=== PATIENT | female | born 1940 | race Caucasian/White ===

== ENCOUNTER 2018-07-05 09:12 | Emergency (ER) | payer MEDICARE, MEDICAID ==
[2018-07-05] MEDS ORDERED: Aspirin 81 MG Tab.Chew PO STA ×2 (12:47→12:51)
[2018-07-05] MEDS ORDERED: Metoprolol Tartrate 5 MG/5 ML SDV IVPUSH STA (12:52)
--- NOTE | 2018-07-05 13:01 | EDM.PDOC ---
ED HPI GENERAL MEDICAL PROBLEM - General Chief Complaint: Cardiovascular Problem Stated Complaint: IRREGULAR HEART RATE Time Seen by Provider: 07/05/18 10:33 Source of Information: Reports: Patient, Family (Daughter, jett-daughter), RN Notes Reviewed History Limitations: Reports: No Limitations - History of Present Illness INITIAL COMMENTS - FREE TEXT/NARRATIVE: The patient states that she has been feeling palpitations - the sensation of skipping" fluttering" in her chest, for 50 years. She states that she wore a Holter monitor twice, both around 20 years ago, and that both times they were negative. She states that her Sub Prior told her that he thought her palpitations were due to "nerves". Her symptoms have been worse this week, including this morning. In the past, the patient took Ativan, which she states helped, but then she stopped taking the Ativan. She took 2 tablets of Ativan 0.5 mg, and states that she felt better this morning, as well. She states that she was prescribed Ativan for the treatment of anxiety. The patient denies a recent history of chest pain or discomfort, dyspnea, nausea, diaphoresis, or sense of impending doom. The patient is on Coumadin for a history of DVT/PE. She states that she is able to check her own INR at home, and that it was therapeutic at 2.5 yesterday, 07/04/2018. In addition to Coumadin, the patient also has an inferior vena cava filter. The patient also states that she was diagnosed with obstructive sleep apnea about 20 years ago, but does not wear her CPAP, due to claustrophobia. Here in the ED, the patient's initial blood pressure was recorded as 158/143, however, a short time later, without treatment, it was recorded as 129/58. She is no longer feeling palpitations. The patient's PCP is Sandi Stevenson. - Related Data Allergies Allergy/AdvReac Type Severity Reaction Status Date / Time No Known Allergies Allergy Verified 07/05/18 09:24 Home Meds: Home Meds Warfarin [Coumadin] 2.5 mg PO SUTUWETHSA 11/11/15 [History] Warfarin [Coumadin] 5 mg PO MOFR 11/11/15 [History] Acetaminophen [Tylenol] 650 mg PO BEDTIME 01/02/16 [History] Aspirin [Ivan Chewable] 81 mg PO DAILY 01/02/16 [History] Atenolol [Tenormin] 50 mg PO DAILY 01/02/16 [History] Diltiazem HCl [Diltiazem 24Hr ER] 240 mg PO DAILY 01/02/16 [History] LORazepam 0.5 mg PO DAILY PRN 01/02/16 [History] Levothyroxine [Synthroid] 1.5 tab PO DAILY 01/02/16 [History] Losartan/Hydrochlorothiazide [Losartan-HCTZ 100-25 MG] 1 each PO DAILY 01/02/16 [History] Magnesium 400 mg PO DAILY 01/02/16 [History] Niacin [Niacin ER] 500 mg PO BEDTIME 01/02/16 [History] [place]-3/DHA/Epa/Fish Oil [Fish Oil] 1,000 mg PO BID 01/02/16 [History] Pravastatin Sodium [Pravastatin (Pravachol)] 40 mg PO DAILY 01/02/16 [History] Ubidecarenone [COQ-10] 30 mg PO DAILY 01/02/16 [History] Vitamin B Complex 1 each PO DAILY 01/02/16 [History] B2/Vit A,C & E/Lut/Zeaxanth/Mn [Icaps] 1 tab PO BID 07/05/18 [History] Cholecalciferol (Vitamin D3) [Vitamin D3] 1 tab PO DAILY 07/05/18 [History] Past Medical History HEENT History: Reports: Impaired Vision Cardiovascular History: Reports: Blood Clots/VTE/DVT, High Cholesterol, Hypertension Respiratory History: Reports: PE, Sleep Apnea (non-compliant with CPAP) Musculoskeletal History: Reports: Back Pain, Chronic, Osteoarthritis Psychiatric History: Reports: Anxiety Endocrine/Metabolic History: Reports: Hypothyroidism, Obesity/BMI 30+ Hematologic History: Reports: B12 Deficiency - Past Surgical History HEENT Surgical History: Reports: Cataract Surgery Cardiovascular Surgical History: Reports: Vascular Surgery (IVC filter) Other Cardiovascular Surgeries/Procedures: blood clot filter GI Surgical History: Reports: Cholecystectomy (1970s) Social & Family History - Family History Family Medical History: Noncontributory - Tobacco Use Smoking Status *Q: Former Smoker Years of Tobacco use: 5 Packs/Tins Daily: 0.2 Month/Year Tobacco Last Used: Quit 1963 - Caffeine Use Caffeine Use: Reports: None - Alcohol Use Alcohol Use History: No - Recreational Drug Use Recreational Drug Use: No - Living Situation & Occupation Living situation: Reports: , Alone Occupation: Retired ED ROS GENERAL - Review of Systems Review Of Systems: ROS reveals no pertinent complaints other than HPI. ED EXAM, GENERAL - Physical Exam Exam: See Below Exam Limited By: No Limitations General Appearance: Alert, WD/WN, No Apparent Distress Eye Exam: Bilateral Eye: EOMI, Normal Inspection Ears: Normal External Exam Nose: Normal Inspection Throat/Mouth: Normal Inspection, Normal Lips, Normal Voice, No Airway Compromise Head: Atraumatic, Normocephalic Neck: Normal Inspection, Full Range of Motion Respiratory/Chest: No Respiratory Distress, Lungs Clear, Normal Breath Sounds, No Accessory Muscle Use Cardiovascular: Normal Peripheral Pulses, Regular Rate, Rhythm, No Gallop, No JVD, No Murmur, No Rub Peripheral Pulses: 4+: Radial (L), Radial (R) GI/Abdominal: Normal Bowel Sounds, Soft, Non-Tender, No Organomegaly, No Distention, No Abnormal Bruit, Other (Obese) (Female) Exam: Deferred Rectal (Female) Exam: Deferred Back Exam: Normal Inspection, Full Range of Motion Extremities: Normal Inspection, Normal Range of Motion, Normal Capillary Refill Neurological: Alert, Oriented, Normal Cognition, No Motor/Sensory Deficits Psychiatric: Normal Affect Skin Exam: Warm, Dry, Intact, Normal Color, No Rash EKG INTERPRETATION EKG Date: 07/05/18 Time: 09:26 Rhythm: NSR Rate (Beats/Min): 67 [place]: Normal P-Wave: Present (1 AVB) QRS: Wide (Nonspecific intraventricular conduction delay) ST-T: Normal QT: Normal Comparison: NA - No Prior EKG Course - Vital Signs Last Recorded V/S: Last Vital Signs Temp 36.2 C 07/05/18 09:20 Pulse 66 07/05/18 13:10 Resp 18 07/05/18 09:20 BP 159/67 H 07/05/18 13:10 Pulse Ox 97 07/05/18 09:20 - Orders/Labs/Meds Orders: Active Orders 24 hr Category Date Time Status EKG Documentation Completion [RC] ASDIRECTED Care 07/05/18 14:40 Active EKG Documentation Completion [RC] STAT Care 07/05/18 09:20 Active Labs: Laboratory Tests 07/05/18 07/05/18 07/05/18 Range/Units 11:40 11:40 11:40 WBC 5.42 (3.98-10.04) K/mm3 RBC 4.13 (3.98-5.22) M/mm3 Hgb 12.4 (11.2-15.7) gm/L Hct 39.8 (34.1-44.9) % MCV 96.4 H (79.4-94.8) fl MCH 30.0 (25.6-32.2) pg MCHC 31.2 L (32.2-35.5) g/dl RDW Std Deviation 47.5 H (36.4-46.3) fL Plt Count 181 L (182-369) K/mm3 MPV 9.3 L (9.4-12.3) fl Neutrophils % (Manual) 64 H (40-60) % Band Neutrophils % 0 (0-10) % Lymphocytes % (Manual) 26 (20-40) % Atypical Lymphs % 0 % Monocytes % (Manual) 8 (2-10) % Eosinophils % (Manual) 1 (0.7-5.8) % Basophils % (Manual) 1 (0.1-1.2) Platelet Estimate Adequate Plt Morphology Comment Normal RBC Morph Comment Normal PT 22.3 H (9.5-12.1) SECONDS INR 2.08 Sodium 140 (136-145) mEq/L Potassium 5.1 (3.5-5.1) mEq/L Chloride 102 (98-107) mEq/L Carbon Dioxide 30 (21-32) mEq/L Anion Gap 13.1 (5-15) BUN 34 H (7-18) mg/dL Creatinine 1.4 H (0.55-1.02) mg/dL Est Cr Clr Drug Dosing 34.66 mL/min Estimated GFR (MDRD) 36 (>60) mL/min BUN/Creatinine Ratio 24.3 H (14-18) Glucose 104 (83-115) mg/dL Calcium 10.3 H (8.5-10.1) mg/dL Magnesium 2.4 (1.8-2.4) mg/dl Total Bilirubin 0.4 (0.2-1.0) mg/dL AST 17 (15-37) U/L ALT 26 (14-59) U/L Alkaline Phosphatase 89 (46-116) U/L Troponin I 0.210 H* (0.00-0.056) ng/mL Total Protein 8.0 (6.4-8.2) g/dl Albumin 4.1 (3.4-5.0) g/dl Globulin 3.9 gm/dL Albumin/Globulin Ratio 1.1 (1-2) 07/05/18 Range/Units 14:40 WBC (3.98-10.04) K/mm3 RBC (3.98-5.22) M/mm3 Hgb (11.2-15.7) gm/L Hct (34.1-44.9) % MCV (79.4-94.8) fl MCH (25.6-32.2) pg MCHC (32.2-35.5) g/dl RDW Std Deviation (36.4-46.3) fL Plt Count (182-369) K/mm3 MPV (9.4-12.3) fl Neutrophils % (Manual) (40-60) % Band Neutrophils % (0-10) % Lymphocytes % (Manual) (20-40) % Atypical Lymphs % % Monocytes % (Manual) (2-10) % Eosinophils % (Manual) (0.7-5.8) % Basophils % (Manual) (0.1-1.2) Platelet Estimate Plt Morphology Comment RBC Morph Comment PT (9.5-12.1) SECONDS INR Sodium (136-145) mEq/L Potassium (3.5-5.1) mEq/L Chloride (98-107) mEq/L Carbon Dioxide (21-32) mEq/L Anion Gap (5-15) BUN (7-18) mg/dL Creatinine (0.55-1.02) mg/dL Est Cr Clr Drug Dosing mL/min Estimated GFR (MDRD) (>60) mL/min BUN/Creatinine Ratio (14-18) Glucose (83-115) mg/dL Calcium (8.5-10.1) mg/dL Magnesium (1.8-2.4) mg/dl Total Bilirubin (0.2-1.0) mg/dL AST (15-37) U/L ALT (14-59) U/L Alkaline Phosphatase (46-116) U/L Troponin I 0.542 H* (0.00-0.056) ng/mL Total Protein (6.4-8.2) g/dl Albumin (3.4-5.0) g/dl Globulin gm/dL Albumin/Globulin Ratio (1-2) Meds: Medications Discontinued Medications Generic Name Dose Route Start Last Admin Trade Name Flakito PRN Reason Stop Dose Admin Aspirin 243 mg 07/05/18 12:51 07/05/18 12:54 Aspirin PO 07/05/18 12:52 243 mg ONETIME STA Administration Metoprolol Tartrate 5 mg 07/05/18 12:52 07/05/18 13:10 Lopressor IVPUSH 07/05/18 12:53 5 mg ONETIME STA Administration Simvastatin 80 mg 07/05/18 13:03 07/05/18 13:21 Zocor PO 07/05/18 13:04 80 mg ONETIME STA Administration - Re-Assessments/Exams Free Text/Narrative Re-Assessment/Exam: 07/05/18 13:01 The patient's troponin returned elevated at 0.210. We do not have prior troponins to compare. Her creatinine is elevated at 1.4. This is chronic; her creatinine was 1.5 on 03/21/2018. The patient states that she took her baby aspirin this morning, and her Pravachol last night. I have ordered 243 mg chewable aspirin, 80 mg simvastatin , and 5 mg of IV Lopressor. Case discussed with [facility] at 12:53. Case then discussed with Dr. Hinson, Sub Prior at [facility], at 12: 56. He recommended that we repeat the troponin in a few hours. If it is rising, we are to call him back. If it is not, he recommended a Holter monitor, an outpatient stress test, and follow-up in his clinic. Because the patient is on Coumadin, he advised against heparin or Plavix at this time. 07/05/18 14:56 Repeat ECG at 14:46 demonstrates a sinus arrhythmia. There is a first-degree AV block. No atrial enlargement. No ischemic changes, however, there is late transition. No left axis or right axis deviation. No LVH. There is a nonspecific intraventricular conduction delay. The QTc is within normal limits. No significant change from the 09:26 ECG. The repeat troponin is not yet back. 07/05/18 15:27 The patient's repeat troponin has returned elevated at 0.542. The patient states that she has remained comfortable, without the development of any chest pain or discomfort, dyspnea, nausea, or diaphoresis. Case discussed with [facility] at 15:20. Case then discussed with Dr. Hinson, Sub Prior, at 15:24. He agrees that the patient should be transferred to their facility. He did not feel that the patient needed to go to the [facility] immediately, rather, he would likely risk stratify her with a stress test first. He did not recommend any additional medications. He would like the patient to be admitted to the Hospitalist. [facility] will call us back when the Hospitalist is available. 07/05/18 15:46 Called back by [facility] at 15:36. Case then discussed with Dr. Chase, Hospitalist at [facility], at 15: 42. He accepted the patient for transfer to their facility. The patient will go by ground ambulance. Departure - Departure Time of Disposition: 15:30 Disposition: Admitted As Inpatient 64 Condition: Fair Clinical Impression: Elevated troponin, Chronic renal insufficiency, Palpitations Referrals: Sandi Stevenson LEATHER WHITENER [Primary Care Provider] - Forms: ED Department Discharge - My Orders Last 24 Hours: My Active Orders 07/05/18 09:20 EKG Documentation Completion [RC] STAT 07/05/18 14:40 EKG Documentation Completion [RC] ASDIRECTED - Assessment/Plan Last 24 Hours: My Active Orders 07/05/18 09:20 EKG Documentation Completion [RC] STAT 07/05/18 14:40 EKG Documentation Completion [RC] ASDIRECTED
[2018-07-05] MEDS ORDERED: Simvastatin 40 MG Tab PO STA (13:03)
[2018-07-05 13:16] VITALS: BP 159/67
== END 2018-07-05 16:30 | disposition critical access hospital (66) ==
LOC: JD.ED 09:12
DX: I12.9 Hypertensive chronic kidney disease with stage 1 through stage 4 chronic kidney disease, or unspecified chronic kidney disease (principal); R00.2 Palpitations; E78.00 Pure hypercholesterolemia, unspecified; Z87.891 Personal history of nicotine dependence; Z79.01 Long term (current) use of anticoagulants; Z79.899 Other long term (current) drug therapy
CPT/HCPCS: 36415; 80053; 83735; 84484; 85007; 85027; 85610; 93005; 96374; 99285; A9270; J3490

== ENCOUNTER 2018-09-01 14:27 | Emergency (ER) | payer MEDICARE, MEDICAID ==
[2018-09-01 14:36] VITALS: BP 157/66
[2018-09-01] MEDS ORDERED: HYDROmorphone 1 MG/ML Syringe IM ONE (14:45)
[2018-09-01] MEDS ORDERED: Promethazine 25 MG/ML SDV IM ONE (14:46)
--- NOTE | 2018-09-01 14:48 | EDM.PDOC ---
ED HPI GENERAL MEDICAL PROBLEM - General Chief Complaint: Back Pain or Injury Stated Complaint: [facility] Time Seen by Provider: 09/01/18 14:47 Source of Information: Reports: Patient History Limitations: Reports: No Limitations - History of Present Illness INITIAL COMMENTS - FREE TEXT/NARRATIVE: 78-year-old female arrives in the ED per [facility]. Chief complaint is severe low back pain radiating into her right buttock hip area and down her thigh to the knee. Is been present for greater than a month. She fell on her but talks about a month ago and had the paramedics come and pick her up from the floor but she relates the pain was already there prior to that fall. She states the pain is just not getting any better. Is been using Ultram which is not helping at all. Is incomplete emptying of the urinary bladder. Bowel function has been pretty normal although tends to be constipated. Available walker. She is age 78 but looks much younger than her age. She is morbidly obese at greater than 350 pounds. Onset: Gradual (Greater than a month.) Duration: Week(s): (There are than 4-5 weeks.), Chronic Location: Reports: Back (Lumbar spine with radiation to the right buttock and posterior lateral thigh to the knee) Quality: Reports: Ache, Burning (Pain appears to be neurogenic in origin), Throbbing Severity: Severe (8 out of 10) Improves with: Reports: None Worsens with: Reports: Other (Standing for any length of time makes it worse.) Context: Reports: Other (Spontaneous occurrence. Possibly aggravated by a fall on her buttock a month ago.). Denies: Activity, Exercise, Lifting, Sick Contact , Trauma Associated Symptoms: Reports: Malaise, Shortness of Breath, Weakness. 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) Right Lower Back Pain Score (Numeric/FACES): 10 - Related Data Allergies Allergy/AdvReac Type Severity Reaction Status Date / Time No Known Allergies Allergy Verified 07/05/18 09:24 Home Meds: Home Meds Warfarin [Coumadin] 2.5 mg PO SUTUWETHSA 11/11/15 [History] Warfarin [Coumadin] 5 mg PO MOFR 11/11/15 [History] Acetaminophen [Tylenol] 650 mg PO BEDTIME 01/02/16 [History] Aspirin [Ivan Chewable] 81 mg PO DAILY 01/02/16 [History] Atenolol [Tenormin] 50 mg PO DAILY 01/02/16 [History] Diltiazem HCl [Diltiazem 24Hr ER] 240 mg PO DAILY 01/02/16 [History] LORazepam 0.5 mg PO DAILY PRN 01/02/16 [History] Levothyroxine [Synthroid] 1.5 tab PO DAILY 01/02/16 [History] Losartan/Hydrochlorothiazide [Losartan-HCTZ 100-25 MG] 1 each PO DAILY 01/02/16 [History] Magnesium 400 mg PO DAILY 01/02/16 [History] Martin-3/DHA/Epa/Fish Oil [Fish Oil] 500 mg PO BID 01/02/16 [History] Pravastatin Sodium [Pravastatin (Pravachol)] 40 mg PO DAILY 01/02/16 [History] Ubidecarenone [COQ-10] 30 mg PO DAILY 01/02/16 [History] Vitamin B Complex 1 each PO DAILY 01/02/16 [History] B2/Vit A,C & E/Lut/Zeaxanth/Mn [Icaps] 1 tab PO BID 07/05/18 [History] Cholecalciferol (Vitamin D3) [Vitamin D3] 1 tab PO DAILY 07/05/18 [History] Gabapentin [Neurontin] 100 mg PO TID #90 capsule 09/01/18 [Rx] Polyethylene Glycol 3350 [MiraLAX] 17 gm PO DAILY #1 cont 09/01/18 [Rx] oxyCODONE HCl/Acetaminophen [Percocet 10-325 mg Tablet] 1 - 2 each PO Q4H PRN # 36 tablet 09/01/18 [Rx] predniSONE [Deltasone] 20 mg PO ASDIRECTED #21 tablet 09/01/18 [Rx] Past Medical History HEENT History: Reports: Impaired Vision Cardiovascular History: Reports: Blood Clots/VTE/DVT, High Cholesterol, Hypertension Respiratory History: Reports: PE (Has had pulmonary embolism 1 in the past in 2009 and remains on Coumadin because of this. 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 She also has a [place] filter in her inferior vena cava.) , Sleep Apnea, Other (See Below) Musculoskeletal History: Reports: Back Pain, Chronic, Osteoarthritis Psychiatric History: Reports: Anxiety Endocrine/Metabolic History: Reports: Hypothyroidism, Obesity/BMI 30+ Hematologic History: Reports: B12 Deficiency - Past Surgical History HEENT Surgical History: Reports: Cataract Surgery Cardiovascular Surgical History: Reports: Vascular Surgery Other Cardiovascular Surgeries/Procedures: blood clot filter GI Surgical History: Reports: Cholecystectomy Social & Family History - Family History Family Medical History: Noncontributory - Tobacco Use Smoking Status *Q: Former Smoker Used Tobacco, but Quit: Yes Month/Year Tobacco Last Used: 40 - Caffeine Use Caffeine Use: Reports: Coffee, Soda - Recreational Drug Use Recreational Drug Use: No - Living Situation & Occupation Living situation: Reports: , Alone Occupation: Retired ED ROS GENERAL - Review of Systems Review Of Systems: See Below Constitutional: Reports: Malaise, Weakness, Fatigue. Denies: Fever, Chills, Weight Loss HEENT: Reports: Glasses Respiratory: Reports: Shortness of Breath Cardiovascular: Reports: Blood Pressure Problem, Dyspnea on Exertion ( Chronically is especially lying down and on exertion.), Edema (Chronically both lower extremities.). Denies: Chest Pain ( Chronically), Claudication, Lightheadedness, Orthopnea (Hypertension chronically) Endocrine: Reports: Fatigue GI/Abdominal: Reports: Constipation : Reports: Frequency, Other (Ills and incomplete emptying of her urinary bladder. Had a urine done in the clinic last week which was negative for infection. She was told she had a bacterial vaginosis and did complete 5 days of vaginal Flagyl gel.) Musculoskeletal: Reports: Back Pain, Joint Pain (Chronic back pain for the last 5 or 6 weeks getting worsens that a better radiate to her right hip and posterior lateral thigh to her knee hips and neck at times) Skin: Reports: Bruising (Bruises easily as she is on Coumadin chronically.) Neurological: Reports: No Symptoms Psychiatric: Reports: Depression Hematologic/Lymphatic: Reports: No Symptoms Immunologic: Reports: No Symptoms ED EXAM,LOWER BACK PAIN/INJURY - Physical Exam Exam: See Below Exam Limited By: No Limitations General Appearance: Alert, WD/WN, No Apparent Distress Eye Exam: Bilateral Eye: Normal Inspection Throat/Mouth: Normal Inspection, Normal Lips, Normal Oropharynx Head: Atraumatic, Normocephalic Neck: Normal Inspection, Supple, Non-Tender, Full Range of Motion. No: Lymphadenopathy (L), Lymphadenopathy (R) Respiratory/Chest: No Respiratory Distress, Lungs Clear, Normal Breath Sounds, No Accessory Muscle Use, Respiratory Distress (Tachypnea at rest but this is due to her size. Sats are 93% on room air.) Cardiovascular: Regular Rate, Rhythm, No Murmur, No Rub. No: Normal Peripheral Pulses GI/Abdominal: Other (Morbidly obese and abdominal girth limits ability to palpate any solid organs. She may have a component of meralgia paresthetica as she does have some burning in her anterior lateral thighs due to her obesity. Symptoms a lot of sitting.) Back Exam: Other (Tenderness mostly left lumbar spine in the para spinal musculature. Pain appears to be deeper than in the facet joints.) Extremities: Pedal Edema (2+ pitting edema mostly around the ankles and distal one third of the) Neurological: Alert ( tib-fib films.), Normal Mood/Affect, Normal Dorsiflexion Psychiatric: Normal Affect, Normal Mood Skin Exam: Warm, Dry, Intact, Normal Color Course - Vital Signs Last Recorded V/S: Last Vital Signs Temp 37.4 C 09/01/18 14:35 Pulse 76 09/01/18 14:35 Resp 20 09/01/18 14:35 BP 157/66 H 09/01/18 14:35 Pulse Ox 93 L 09/01/18 14:35 - Orders/Labs/Meds Orders: Active Orders 24 hr Category Date Time Status Bladder Scan [RC] ASDIRECTED Care 09/01/18 14:46 Active Labs: Laboratory Tests 09/01/18 Range/Units 16:05 Urine Color Yellow (Yellow) Urine Appearance Clear (Clear) Urine pH 6.0 (5.0-8.0) Ur Specific [place] 1.020 (1.005-1.030) Urine Protein Trace H (Negative) Urine Glucose (UA) Negative (Negative) Urine Ketones Negative (Negative) Urine Occult Blood Negative (Negative) Urine Nitrite Negative (Negative) Urine Bilirubin Negative (Negative) Urine Urobilinogen 0.2 (0.2-1.0) Ur Leukocyte Esterase 1+ H (Negative) Urine RBC 0-5 (0-5) /hpf Urine WBC 10-20 H (0-5) /hpf Ur Epithelial Cells 20-30 H (0-5) /hpf Ur Renal Epithelial Cell 0-5 (0-5) /hpf Urine Bacteria Moderate H (FEW) /hpf Hyaline Casts 5-10 H (0-5) /lpf Urine Mucus Few (FEW) /hpf Meds: Medications Discontinued Medications Generic Name Dose Route Start Last Admin Trade Name Navjotq PRN Reason Stop Dose Admin Gabapentin 100 mg 09/01/18 18:17 09/01/18 18:23 Neurontin PO 09/01/18 18:18 100 mg ONETIME ONE Administration Hydromorphone HCl 1 mg 09/01/18 14:45 09/01/18 14:56 Dilaudid IM 09/01/18 14:46 1 mg ONETIME ONE Administration Hydromorphone HCl 1 mg 09/01/18 16:11 09/01/18 16:15 Dilaudid IVPUSH 09/01/18 16:12 1 mg ONETIME ONE Administration Oxycodone/Acetaminophen 1 tab 09/01/18 18:16 09/01/18 18:23 Percocet 325-5 Mg PO 09/01/18 18:17 1 tab ONETIME ONE Administration Prednisone 20 mg 09/01/18 18:16 09/01/18 18:24 Prednisone PO 09/01/18 18:17 20 mg ONETIME ONE Administration Promethazine HCl 25 mg 09/01/18 14:46 09/01/18 14:56 Phenergan IM 09/01/18 14:47 25 mg ONETIME ONE Administration - Radiology Interpretation Free Text/Narrative:: 78-year-old female brought to the ED per ambulance for evaluation of chronic low back pain of about 5-6 weeks duration. She had a fall about a month ago needed the paramedics to help her up from the floor but she states the back pain was already there. She doesn't think was any worse after falling. He currently is getting worse rating towards the right hip buttock and posterior lateral thigh down to the knee. Patient will back shows no localized tenderness. Minimal left-sided paraspinal muscle spasm from L3-L5. Patient is chronically on Coumadin because of previous DVTs and PEs. She has a [place] filter in her vena cava as well. She has a feeling of incomplete emptying of her urinary bladder. She had a urinalysis done in the clinic last 8 which wasn' t reportedly negative. Will have a bladder scan performed after she voids today i.e. post void residual level. Pain right now is 8-9 out of 10. She's not sure she can tolerate lying flat for very long. Going to have CT of her lumbar spine carried out. I will give her an IM injection of Dilaudid 1 mg with Phenergan 25 mg IM for pain relief. This is to facilitate CT of her lumbar spine. Urinalysis will also be collected. - Re-Assessments/Exams Free Text/Narrative Re-Assessment/Exam: 09/01/18 16:11 patient is having more pain in her back. Took 3 nurses to get her up to the bathroom. It's unlikely that she will be able to go home. Dilaudid 1 mg IV for pain relief. Note she weighs more than 350 pounds 09/01/18 16:32 CT of the lumbar spine has been completed. It shows diffuse disc space narrowing throughout all levels. Multiple levels of vacuum phenomenon are seen diffuse degenerative changes noted throughout all that the apophyseal joints. There is spondylolisthesis noted at the L4-L5 due to degenerative apophyseal change. Mild retrolisthesis listhesis is noted at L1-L2 and at the L2 -L3 level. Diffuse anterior osteophytes are appreciated. Mild central canal stenosis noted at L1-L2. Moderate to severe central canal stenosis is noted at L2-L3. Moderate to severe central canal stenosis is noted at L3-L4. Severe central canal stenosis is noted at L4-L5. Right-sided neural foraminal stenosis is noted at L3-L4. Moderate bilateral neural foraminal stenosis is noted at L2- L3. Mild right-sided neural foraminal stenosis noted at L1-L2. No fractures are appreciated. Vacuum phenomenon is noted within both SI joints as well. Nurses report to me that it took 3 them to get her up to the bathroom. I discussed options with her but she prefers to try things at home with her granddaughter helping her out and she has a walker and cane at home. 09/01/18 17:30 Patient can't take anti-inflammatories as she is on Coumadin. Plan will therefore be to place her on Percocet tabs 10/325 since she weighs 350 pounds. 1 tablet every 4-6 hours as necessary for pain relief. Gabapentin 100 mg 3 times daily 1 at the morning one at bedtime and one mid afternoon to try to redo reduce her pain in her lower back. She will need to be on MiraLAX powder 17 g daily to prevent constipation from the Percocet. Place her on prednisone 20 mg with breakfast and supper for 7 days and then 1 in the morning for another 7 days to try and reduce inflammation in her lower back. She wishes to try things at home. She is a difficult patient to manage because injection in her back would be difficult because of being on Coumadin and she would have to travel to [place]. He has a walker and uses a cane at home and she has her granddaughter they're caring for at present time . Advised follow-up with her primary care physician in one week's time Departure - Departure Time of Disposition: 17:10 Disposition: Home, Self-Care 01 Condition: Fair Clinical Impression: Morbid obesity with BMI of 50.0-59.9, adult Degenerative arthritis of lumbar spine Qualifiers: Spinal osteoarthritis complication: with radiculopathy Qualified Code(s): M47.26 - Other spondylosis with radiculopathy, lumbar region - Discharge Information *PRESCRIPTION DRUG MONITORING PROGRAM REVIEWED*: Not Applicable *COPY OF PRESCRIPTION DRUG MONITORING REPORT IN PATIENT EWA: Not Applicable Prescriptions: Gabapentin [Neurontin] 100 mg PO TID #90 capsule oxyCODONE HCl/Acetaminophen [Percocet 10-325 mg Tablet] 1 - 2 each PO Q4H PRN # 36 tablet PRN Reason: Low back pain Polyethylene Glycol 3350 [MiraLAX] 17 gm PO DAILY #1 cont predniSONE [Deltasone] 20 mg PO ASDIRECTED #21 tablet Referrals: Sandi Stevenson FLASK FITTER [Primary Care Provider] - Forms: ED Department Discharge - My Orders Last 24 Hours: My Active Orders 09/01/18 14:46 Bladder Scan [RC] ASDIRECTED - Assessment/Plan Last 24 Hours: My Active Orders 09/01/18 14:46 Bladder Scan [RC] ASDIRECTED
--- NOTE | 2018-09-01 15:54 | CT ---
CT lumbar spine Technique: Multiple axial sections were obtained from the mid T10 level inferiorly to the S3 level. Reconstructed sagittal and coronal images were obtained. Findings: Diffuse disc space narrowing is seen. Multiple levels of vacuum phenomena are seen. Diffuse degenerative change is noted throughout apophyseal joints. Spondylolisthesis is noted at L4-L5 due to degenerative apophyseal change. Mild retrolisthesis is noted at L1-L2 and L2-3. Diffuse anterior osteophytes are seen. Mild central canal stenosis noted at L1-L2. Moderate to severe central canal stenosis is noted at L2-L3. Moderate to severe central canal stenosis is noted at L3-L4. Severe central canal stenosis is noted at L4-L5. Right-sided neural foraminal stenosis is noted at L3-L4. Moderate bilateral neural foraminal stenosis is noted at L2-L3. Mild right-sided neural foraminal stenosis noted at L1-L2. No fracture is appreciated. Vacuum phenomena is noted within both sacroiliac joints. Impression: 1. Severe degenerative change throughout the lumbar spine. Multiple levels of neural foraminal stenosis and central canal stenosis or seen. Diagnostic code #3
[2018-09-01] MEDS ORDERED: HYDROmorphone 1 MG/ML Syringe IVPUSH ONE (16:11)
[2018-09-01] MEDS ORDERED: Acetaminophen/oxyCODONE 325-5 MG Tab PO ONE (18:16)
[2018-09-01] MEDS ORDERED: predniSONE 20 MG Tab PO ONE (18:16)
[2018-09-01] MEDS ORDERED: Gabapentin 100 MG Cap PO ONE (18:17)
== END 2018-09-01 18:35 | disposition home or self-care (01) ==
LOC: JD.ED 14:27 → SUPCPDRO 14:27 → JD.ED 18:35
DX: M47.26 Other spondylosis with radiculopathy, lumbar region (principal); E66.01 Morbid (severe) obesity due to excess calories; I10 Essential (primary) hypertension; E03.9 Hypothyroidism, unspecified; I26.99 Other pulmonary embolism without acute cor pulmonale; Z68.43 Body mass index [BMI] 50.0-59.9, adult; Z79.01 Long term (current) use of anticoagulants; Z79.82 Long term (current) use of aspirin; Z79.899 Other long term (current) drug therapy; Z98.49 Cataract extraction status, unspecified eye; Z90.49 Acquired absence of other specified parts of digestive tract
CPT/HCPCS: 51798; 72131; 81001; 96372; 96374; 99284; A9270; J1170; J2550; 99285

== ENCOUNTER 2018-10-03 09:43 | Emergency (ER) | payer MEDICARE, MEDICAID ==
--- NOTE | 2018-10-03 09:56 | EDM.PDOC ---
ED HPI GENERAL MEDICAL PROBLEM - General Chief Complaint: General Stated Complaint: [facility] Time Seen by Provider: 10/03/18 09:44 Source of Information: Reports: Patient, EMS History Limitations: Reports: No Limitations - History of Present Illness INITIAL COMMENTS - FREE TEXT/NARRATIVE: 78-year-old female presents to the ED per [place] [facility]. Patient was so weak she could not get up from the toilet this morning. She lives in her own home with her granddaughter assisting her. She reports she's not been feeling well the last several days. Clinically she has herpes zoster in her left georgette- face involving the forehead,anterior scalp and upper eyelid and medial canthus of the eye and medial nose on the left side. The cornea does not appear to be involved. Lesions or 6 days old and were preceded by pain for 4 days particular in her eyebrow and temporal scalp. She denies falling or hitting her head. She has terrible pain in her right hip that radiates all the way down to her foot suggestive of sciatica radiculopathy. She is morbidly obese and does not ambulate. She gets around the scooter in her home as well as a wheelchair. She denies nausea and vomiting but she has had very little oral intake for the last few days. Question whether she has had any fever or chills. She denies cough or sputum production but she can't lie flat. It's only 86% on room air. Tachypnea With respiratory to 28/m. Blood pressure is maintained. She is afebrile. She has mild nausea without any vomiting. Eyes any diarrhea. She reports that she bruises very easily as there are numerous numerous ecchymoses on her upper extremities particularly her left upper arm. 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 Onset: Today Onset Date: 09/27/18 (Gradually getting weaker over the last week.) Duration: Day(s):, Getting Worse Location: Reports: Generalized (MRI sense of weakness and increased pain right hip rating down her leg which makes it difficult to get on and off the toilet.) Quality: Reports: Ache (Right hip) Severity: Moderate Improves with: Reports: None Worsens with: Reports: Other, Movement Context: Denies: Activity (Pivoting from the wheelchair or scooter to get into the toilet is very difficult), Exercise, Lifting, Sick Contact, Trauma, Other Associated Symptoms: Reports: Loss of Appetite, Malaise, Nausea/Vomiting, Shortness of Breath, Weakness. Denies: No Other Symptoms, Confusion, Chest Pain , Cough, cough w sputum, Diaphoresis, Fever/Chills, Headaches, Rash, Seizure Treatments ADMEASURER: Reports: Other (see below) (None.) Right Hip Pain Score (Numeric/FACES): 10 - Related Data Allergies Allergy/AdvReac Type Severity Reaction Status Date / Time No Known Allergies Allergy Verified 10/04/18 10:10 Home Meds: Home Meds Warfarin [Coumadin] 2.5 mg PO DAILY 11/11/15 [History] Aspirin [Ivan Chewable] 81 mg PO DAILY 01/02/16 [History] Atenolol [Tenormin] 50 mg PO DAILY 01/02/16 [History] Diltiazem HCl [Diltiazem 24Hr ER] 240 mg PO DAILY 01/02/16 [History] LORazepam 0.5 mg PO DAILY PRN 01/02/16 [History] Levothyroxine [Synthroid] 88 mcg PO DAILY 01/02/16 [History] Losartan/Hydrochlorothiazide [Losartan-HCTZ 100-25 MG] 1 each PO DAILY 01/02/16 [History] Magnesium 400 mg PO DAILY 01/02/16 [History] [place]-3/DHA/Epa/Fish Oil [Fish Oil] 500 mg PO BID 01/02/16 [History] Pravastatin Sodium [Pravastatin (Pravachol)] 40 mg PO DAILY 01/02/16 [History] Ubidecarenone [COQ-10] 30 mg PO DAILY 01/02/16 [History] B2/Vit A,C & E/Lut/Zeaxanth/Mn [Icaps] 1 tab PO BID 07/05/18 [History] Cholecalciferol (Vitamin D3) [Vitamin D3] 1 tab PO DAILY 07/05/18 [History] Gabapentin [Neurontin] 100 mg PO TID #90 capsule 09/01/18 [Rx] Polyethylene Glycol 3350 [MiraLAX] 17 gm PO DAILY #1 cont 09/01/18 [Rx] oxyCODONE HCl/Acetaminophen [Percocet 10-325 mg Tablet] 1 - 2 each PO Q4H PRN # 36 tablet 09/01/18 [Rx] predniSONE [Deltasone] 20 mg PO ASDIRECTED #21 tablet 09/01/18 [Rx] Dextromethorphan HBr [Delsym 30 MG/5 ML Susp] 5 ml PO Q4H PRN 10/03/18 [History] Doxycycline [Vibramycin] 100 mg PO BID #20 cap 10/03/18 [Rx] Furosemide [Lasix] 40 mg PO DAILY #30 tablet 10/03/18 [Rx] Ultra Womens Daily 1 tab PO DAILY 10/03/18 [History] Vitamin B Complex [Super B-50 Complex] 1 tab PO DAILY 10/03/18 [History] guaiFENesin [Mucinex] 600 mg PO BID PRN 10/03/18 [History] Past Medical History HEENT History: Reports: Impaired Vision Cardiovascular History: Reports: Blood Clots/VTE/DVT, High Cholesterol, Hypertension Respiratory History: Reports: PE (Has had pulmonary embolism 1 in the past in 2009 and remains on Coumadin because of this. 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 She also has a Patrick filter in her inferior vena cava.) , Sleep Apnea, Other (See Below) Musculoskeletal History: Reports: Back Pain, Chronic, Osteoarthritis, Other ( See Below) (Does not ambulate. She gets around the house with a scooter she does have a cane and a walker. She also uses a wheelchair at home.) Psychiatric History: Reports: Anxiety Endocrine/Metabolic History: Reports: Hypothyroidism, Obesity/BMI 30+ Hematologic History: Reports: B12 Deficiency - Past Surgical History HEENT Surgical History: Reports: Cataract Surgery Cardiovascular Surgical History: Reports: Vascular Surgery Other Cardiovascular Surgeries/Procedures: blood clot filter GI Surgical History: Reports: Cholecystectomy Social & Family History - Family History Family Medical History: Noncontributory - Caffeine Use Caffeine Use: Reports: Coffee, Soda - Living Situation & Occupation Living situation: Reports: , Alone Occupation: Retired [employer] [facility] - Review of Systems Review Of Systems: See Below Constitutional: Reports: Malaise, Weakness, Fatigue, Decreased Appetite. Denies : Fever, Chills HEENT: Reports: Glasses, Other (Has impaired vision. Has a rash in the left georgette -face and scalp compatible with shingles that developed about 6 days ago. This was predated by pain particularly in the eyebrow area for at least 4 days before the rash broke out) Respiratory: Reports: Shortness of Breath, Cough. Denies: Wheezing, Pleuritic Chest Pain, Sputum (Occasional cough no snow sputum production), Hemoptysis Cardiovascular: Reports: Blood Pressure Problem, Dyspnea on Exertion, Edema, Lightheadedness. Denies: Chest Pain, Claudication, Orthopnea Endocrine: Reports: Fatigue GI/Abdominal: Reports: Constipation (Mild issues with constipation.) : Reports: Frequency, Incontinence (Urge and stress components.) Musculoskeletal: Reports: Other (Lower extremities don't work well at all. She is nonambulatory. Gets around in the house with a motorized scooter. Or wheelchair.) Skin: Reports: Bruising (Bruises extremely easily. Particularly upper extremities of note she is on Coumadin.), Other (Dry skin. Intertrigo both groins and under both breasts.) Neurological: Reports: No Symptoms Psychiatric: Reports: No Symptoms Hematologic/Lymphatic: Reports: No Symptoms Immunologic: Reports: No Symptoms ED EXAM, GENERAL - Physical Exam Exam: See Below Exam Limited By: No Limitations General Appearance: Alert, WD/WN, Moderate Distress (Moderate spine Gabriel distress. Sats of 86% on room air. Respiratory of 28/m.), Other (Temperatures reported to be mildly elevated at 37.3 although clinically she does not feel feel warm.) Eye Exam: Right Eye: Normal Inspection (No obvious corneal involvement), Bilateral Eye: Other (She reports is been present for about 6 days. He was predated by pain in this area particularly eyebrow for 4 days before the rash broke out. She has not seen anybody as her care providers been away.) Throat/Mouth: Other (Tongue is dry and coated. She has to had no meds or food or fluids yet today.) Head: Facial Swelling, Facial Tenderness (Left georgette-forehead involving the upper eyelid and extending up into the hairline but not across the midline of the forehead.) Neck: Normal Inspection, Supple, Non-Tender, Full Range of Motion. No: Lymphadenopathy (L), Lymphadenopathy (R) Respiratory/Chest: Lungs Clear, Respiratory Distress (Tachypnea at rest 28/m. O2 sats 86% on room air.), Decreased Breath Sounds (Decreased air entry to the lung bases bilaterally.). No: Rales ( No adventitial sounds were noted however. ), Rhonchi, Wheezing Cardiovascular: No Murmur, No Rub, Other (Aren't sounds are difficult to hear due to the patient's size.). No: Normal Peripheral Pulses, No Edema, No Gallop Peripheral Pulses: 0: Posterior Tibial (L), Posterior Tibial (R), Dorsalis Pedis (L), Dorsalis Pedis (R) GI/Abdominal: Soft, Non-Tender, No Organomegaly, No Abnormal Bruit, No Mass, Pelvis Stable, Other (Orbitally obese. This limits ability to palpate solid organs.) Back Exam: Other ( has a 1.5 cm blister with serous fluid right upper back on the shoulder blade. There is surrounding patches of first-degree erythema compatible with burn. She did have a heating pad on this area a few days ago.) Extremities: Pedal Edema (Mostly in the feet.), Limited Range of Motion (Severe arthritic changes in both knees both hips.) Neurological: Alert, Oriented, CN II-XII Intact, Normal Cognition Psychiatric: Normal Affect, Normal Mood Skin Exam: Zoster-Like Rash (Left georgette-forehead involving the medial canthus of her nose and upper eyelid. No evidence that is involving the cornea on the left side. Rash is 6 days old.), Other (Right upper back appears to be secondary to a burn on a partial-thickness with a blister formation and first-degree block burn from a heating pad patient has significant intertrigo both groins and under both breasts.) EKG INTERPRETATION EKG Date: 10/03/18 Time: 10:10 Rhythm: NSR Rate (Beats/Min): 77 [place]: Normal P-Wave: Present (With first-degree AV block.) QRS: Other (Nonspecific intraventricular conduction delay. Questionable delta wave V4 to V6. Decreased voltage in the extremity leads.) ST-T: Other (T-wave inversion in 1 and aVL. Repolarization abnormality V4 to V6. ) QT: Normal EKG Interpretation Comments: Abnormal ECG Course - Vital Signs Last Recorded V/S: Last Vital Signs Temp 37.4 C 10/03/18 19:22 Pulse 80 10/03/18 18:00 Resp 18 10/03/18 19:22 BP 133/54 L 10/03/18 19:22 Pulse Ox 99 10/03/18 19:22 - Orders/Labs/Meds Labs: Laboratory Tests 10/03/18 10/03/18 10/03/18 Range/Units 12:05 12:05 12:05 WBC 9.79 (3.98-10.04) K/mm3 RBC 2.68 L (3.98-5.22) M/mm3 Hgb 8.0 L (11.2-15.7) gm/L Hct 27.2 L (34.1-44.9) % MCV 101.5 H (79.4-94.8) fl MCH 29.9 (25.6-32.2) pg MCHC 29.4 L (32.2-35.5) g/dl RDW Std Deviation 60.3 H (36.4-46.3) fL Plt Count 213 (182-369) K/mm3 MPV 9.5 (9.4-12.3) fl Neutrophils % (Manual) 71 H (40-60) % Band Neutrophils % 0 (0-10) % Lymphocytes % (Manual) 12 L (20-40) % Atypical Lymphs % 0 % Monocytes % (Manual) 9 (2-10) % Eosinophils % (Manual) 8 H (0.7-5.8) % Basophils % (Manual) 0 L (0.1-1.2) Platelet Estimate Adequate Polychromasia 3+ marked Hypochromasia 1+ slight Anisocytosis 2+ moderate Microcytosis 1+ slight RBC Morph Comment Abnormal ESR 98 H (0-20) mm/hr PT 42.4 H (9.5-12.1) SECONDS INR 4.00 Sodium (136-145) mEq/L Potassium (3.5-5.1) mEq/L Chloride (98-107) mEq/L Carbon Dioxide (21-32) mEq/L Anion Gap (5-15) BUN (7-18) mg/dL Creatinine (0.55-1.02) mg/dL Est Cr Clr Drug Dosing mL/min Estimated GFR (MDRD) (>60) mL/min BUN/Creatinine Ratio (14-18) Glucose (83-115) mg/dL Lactic Acid (0.4-2.0) mmol/L Calcium (8.5-10.1) mg/dL Magnesium (1.8-2.4) mg/dl Total Bilirubin (0.2-1.0) mg/dL AST (15-37) U/L ALT (14-59) U/L Alkaline Phosphatase (46-116) U/L CK-MB (CK-2) (0-3.6) ng/ml Troponin I (0.00-0.056) ng/mL C-Reactive Protein (<1.0) mg/dL NT-Pro-B Natriuret Pep (0-450) pg/mL Total Protein (6.4-8.2) g/dl Albumin (3.4-5.0) g/dl Globulin gm/dL Albumin/Globulin Ratio (1-2) Urine Color (Yellow) Urine Appearance (Clear) Urine pH (5.0-8.0) Ur Specific [place] (1.005-1.030) Urine Protein (Negative) Urine Glucose (UA) (Negative) Urine Ketones (Negative) Urine Occult Blood (Negative) Urine Nitrite (Negative) Urine Bilirubin (Negative) Urine Urobilinogen (0.2-1.0) Ur Leukocyte Esterase (Negative) Urine RBC (0-5) /hpf Urine WBC (0-5) /hpf Ur Epithelial Cells (0-5) /hpf Urine Bacteria (FEW) /hpf Hyaline Casts (0-5) /lpf Urine Mucus (FEW) /hpf Blood Type Gel Antibody Screen Crossmatch 10/03/18 10/03/18 10/03/18 Range/Units 12:05 12:05 12:05 WBC (3.98-10.04) K/mm3 RBC (3.98-5.22) M/mm3 Hgb (11.2-15.7) gm/L Hct (34.1-44.9) % MCV (79.4-94.8) fl MCH (25.6-32.2) pg MCHC (32.2-35.5) g/dl RDW Std Deviation (36.4-46.3) fL Plt Count (182-369) K/mm3 MPV (9.4-12.3) fl Neutrophils % (Manual) (40-60) % Band Neutrophils % (0-10) % Lymphocytes % (Manual) (20-40) % Atypical Lymphs % % Monocytes % (Manual) (2-10) % Eosinophils % (Manual) (0.7-5.8) % Basophils % (Manual) (0.1-1.2) Platelet Estimate Polychromasia Hypochromasia Anisocytosis Microcytosis RBC Morph Comment ESR (0-20) mm/hr PT (9.5-12.1) SECONDS INR Sodium 136 (136-145) mEq/L Potassium 4.5 (3.5-5.1) mEq/L Chloride 99 (98-107) mEq/L Carbon Dioxide 26 (21-32) mEq/L Anion Gap 15.5 H (5-15) BUN 78 H (7-18) mg/dL Creatinine 3.1 H (0.55-1.02) mg/dL Est Cr Clr Drug Dosing 15.91 mL/min Estimated GFR (MDRD) 14 (>60) mL/min BUN/Creatinine Ratio 25.2 H (14-18) Glucose 81 L (83-115) mg/dL Lactic Acid 1.5 (0.4-2.0) mmol/L Calcium 9.3 (8.5-10.1) mg/dL Magnesium 2.7 H (1.8-2.4) mg/dl Total Bilirubin 0.7 (0.2-1.0) mg/dL AST 26 (15-37) U/L ALT 24 (14-59) U/L Alkaline Phosphatase 62 (46-116) U/L CK-MB (CK-2) 3.1 (0-3.6) ng/ml Troponin I 0.035 (0.00-0.056) ng/mL C-Reactive Protein 13.7 H* (<1.0) mg/dL NT-Pro-B Natriuret Pep 1543 H (0-450) pg/mL Total Protein 6.8 (6.4-8.2) g/dl Albumin 3.0 L (3.4-5.0) g/dl Globulin 3.8 gm/dL Albumin/Globulin Ratio 0.8 L (1-2) Urine Color (Yellow) Urine Appearance (Clear) Urine pH (5.0-8.0) Ur Specific [place] (1.005-1.030) Urine Protein (Negative) Urine Glucose (UA) (Negative) Urine Ketones (Negative) Urine Occult Blood (Negative) Urine Nitrite (Negative) Urine Bilirubin (Negative) Urine Urobilinogen (0.2-1.0) Ur Leukocyte Esterase (Negative) Urine RBC (0-5) /hpf Urine WBC (0-5) /hpf Ur Epithelial Cells (0-5) /hpf Urine Bacteria (FEW) /hpf Hyaline Casts (0-5) /lpf Urine Mucus (FEW) /hpf Blood Type Gel Antibody Screen Crossmatch 10/03/18 10/03/18 Range/Units 12:51 14:47 WBC (3.98-10.04) K/mm3 RBC (3.98-5.22) M/mm3 Hgb (11.2-15.7) gm/L Hct (34.1-44.9) % MCV (79.4-94.8) fl MCH (25.6-32.2) pg MCHC (32.2-35.5) g/dl RDW Std Deviation (36.4-46.3) fL Plt Count (182-369) K/mm3 MPV (9.4-12.3) fl Neutrophils % (Manual) (40-60) % Band Neutrophils % (0-10) % Lymphocytes % (Manual) (20-40) % Atypical Lymphs % % Monocytes % (Manual) (2-10) % Eosinophils % (Manual) (0.7-5.8) % Basophils % (Manual) (0.1-1.2) Platelet Estimate Polychromasia Hypochromasia Anisocytosis Microcytosis RBC Morph Comment ESR (0-20) mm/hr PT (9.5-12.1) SECONDS INR Sodium (136-145) mEq/L Potassium (3.5-5.1) mEq/L Chloride (98-107) mEq/L Carbon Dioxide (21-32) mEq/L Anion Gap (5-15) BUN (7-18) mg/dL Creatinine (0.55-1.02) mg/dL Est Cr Clr Drug Dosing mL/min Estimated GFR (MDRD) (>60) mL/min BUN/Creatinine Ratio (14-18) Glucose (83-115) mg/dL Lactic Acid (0.4-2.0) mmol/L Calcium (8.5-10.1) mg/dL Magnesium (1.8-2.4) mg/dl Total Bilirubin (0.2-1.0) mg/dL AST (15-37) U/L ALT (14-59) U/L Alkaline Phosphatase (46-116) U/L CK-MB (CK-2) (0-3.6) ng/ml Troponin I (0.00-0.056) ng/mL C-Reactive Protein (<1.0) mg/dL NT-Pro-B Natriuret Pep (0-450) pg/mL Total Protein (6.4-8.2) g/dl Albumin (3.4-5.0) g/dl Globulin gm/dL Albumin/Globulin Ratio (1-2) Urine Color Yellow (Yellow) Urine Appearance Clear (Clear) Urine pH 5.5 (5.0-8.0) Ur Specific [place] 1.015 (1.005-1.030) Urine Protein Trace H (Negative) Urine Glucose (UA) Negative (Negative) Urine Ketones Trace H (Negative) Urine Occult Blood Negative (Negative) Urine Nitrite Negative (Negative) Urine Bilirubin Negative (Negative) Urine Urobilinogen 0.2 (0.2-1.0) Ur Leukocyte Esterase Negative (Negative) Urine RBC Not seen (0-5) /hpf Urine WBC 0-5 (0-5) /hpf Ur Epithelial Cells 0-5 (0-5) /hpf Urine Bacteria Few (FEW) /hpf Hyaline Casts 0-5 (0-5) /lpf Urine Mucus Rare H (FEW) /hpf Blood Type O POSITIVE Gel Antibody Screen Negative Crossmatch See Detail Meds: Medications Discontinued Medications Generic Name Dose Route Start Last Admin Trade Name Freq PRN Reason Stop Dose Admin Furosemide 60 mg 10/03/18 18:30 10/03/18 18:49 Lasix IVPUSH 10/03/18 18:31 60 mg NOW ONE Administration Hydromorphone HCl 1 mg 10/03/18 18:31 10/03/18 18:47 Dilaudid IVPUSH 10/03/18 18:32 1 mg ONETIME ONE Administration Dextrose/Sodium Chloride 1,000 mls @ 150 mls/hr 10/03/18 10:00 10/03/18 12:57 Dextrose 5%-Normal Saline IV 150 mls/hr ASDIRECTED LESLEY Administration Sodium Chloride 500 mls @ 50 mls/hr 10/03/18 16:45 10/03/18 16:54 Normal Saline IV 50 mls/hr ASDIRECTED LESLEY Administration Ondansetron HCl 4 mg 03/29/19 18:32 10/03/18 18:45 Zofran IVPUSH 10/03/18 18:33 4 mg ONETIME ONE Administration Oxycodone/Acetaminophen 1 tab 10/03/18 15:40 10/03/18 16:20 Percocet 325-5 Mg PO 10/03/18 15:41 1 tab ONETIME ONE Administration - Radiology Interpretation Free Text/Narrative:: 78-year-old female brought to the ED from her home here in [place] where she resides with her granddaughter who helps her out. He basically was too weak to get off the toilet this morning. She denies any falls. She reports that she's not been feeling very well as of late and hasn't been eating or drinking near normal. Hasn't taken any of her medicines yet today. Hasn't ate or drank yet today. By history she has shingles involving her left georgette-face upper eyelid and medial canthus of her left nose that has been present for about 6 days for which she did not seek treatment for. It was preceded by about 4 days of pain particularly in the eyebrow and lateral and temporal scalp. She is also got a partial-thickness burn 1.5 cm in diameter with a blister with serous fluid right upper back over the shoulder blade with surrounding mild erythema or first -degree burn from heating pad. She is tachypnea get rest and hypoxic. She does have a history of congestive failure. As could be heard in either lower lung field suggesting that this is developed chronically. No JVD or evident that she does have a very thick neck. She is morbidly obese and apparently is not diabetic. She does meet sepsis guidelines although she has not hypotensive at this time. She is hypoxic rest 86% placed on oxygen at 3 L/m by nasal cannula. Routine labs will be collected as well as one view chest x-ray and ECG. Lactic acid endplate blood cultures 2 and a urine to be obtained by catheterization. - Re-Assessments/Exams Free Text/Narrative Re-Assessment/Exam: 10/03/18 10:29 chest x-ray done portably reveals moderate cardiomegaly with the heart extending out to the left ribs. There is a infiltrate right perihilar area which is chronic. There is diffuse vascular congestion the lower lobe on the right side the left is not visualized. No obvious pneumonia is identified 10/03/18 11:48 labs been unable to collect blood. Will attempt to do phlebotomy via femoral vein. 10/03/18 12:18 Nurses were able to establish another IV and obtain blood for the lab. Therefore they were in process. Patient was offered something to eat or drink but at this time she did not feel hungry. 10/03/18 13:41 Labs are finally available. Total white count is 9.79 with 71% neutrophils and no band cells reported. Hemoglobin is low at 8.0 with hematocrit of 27.2. . MCV is 101.5. Platelet count is 213,000. The slide reveals 3+ polychromasia 1+ hypochromasia 2+ anisocytosis and 1+ microcytosis. Sedimentation rate is markedly elevated at 98. PT is 42.4 with an INR 4.0. Sodium is 136 with a potassium of 4.5. Chloride is 99 with a bicarbonate of 26. And a gap is 15.5. BUN is 78 with a creatinine of 3.1. GFR is only 14 i.e. stage V chronic renal insufficiency. Glucose is 81. Lactic acid is 1.5. Calcium is 9.3. Magnesium 2.7. Total bilirubin 0.7. Liver function otherwise normal. Troponin I is 0.035. C-reactive protein is elevated at 13.7. BNP is 1543. Total protein is 6.8 with an albumin fraction of 3.0. Urinalysis shows trace of protein, trace of ketones but no signs of infection. Patient will be crossmatched for unit of packed RBCs as her anemia is likely contributing to her weakness. 10/03/18 14:[address] Alvares customer relations consultant hospitalist and she will see her in the ED. 10/03/18 15:[address] Alvares and at this time she doesn't feel that hospitalization has a lot to offer her. Really will depend on her mobility. Her back pain is very severe on the right side with sciatica. She is taking Percocet on average 5/325 mg twice daily. Usually one first thing in the morning and sometimes at bedtime to help sleep. I will give her one now since the bed she is in is very uncomfortable. Plan will be to administer a unit of blood and see how she feels with the hopes of sending her home. He can have her injection in her back on Saturday in [place] and see if she settles down. She also needs to see a weight count operator in the very near future as she is getting very close to stage renal failure. 10/03/18 18:31 patient is about three quarters of her way through her blood transfusion. She is having increased back pain. I will give her Dilaudid 1 mg IV since the Percocet orally did not seem to help much. We'll also give her Zofran 4 mg IV. I will also give her Lasix 60 mg IV as she is already in mild congestive heart failure which will be aggravated by volume of blood transfusion. 10/03/18 20:30: Has completed a unit of packed cells. Color is improved. The problem is her mobility. She can hardly weight-bear or pivot due to weakness in her legs from left hip pain and sciatica and generalized weakness in her lower extremities. She is reluctant at this time as is the family to think about placement for retirement. After discussion with Dr. Alvares customer relations consultant hospitalist she felt that the patient should be treated as an outpatient for now. She should try to get to [place] on Saturday and have facet joint injection with steroid to see if this will help her mobility and pain. My opinion the patient is at high fall risk due to generalized weakness and deconditioning. Here weight is contributing to this. There is not much that hospitalization has to offer her at this time. Suspect she will be back within the next few days and decisions will have to be made at that time in regards to placement in a nursing facility. She has Percocet tablets that she takes 1 in the morning one before bed which she will continue to do so. She needs follow-up with a weight count operator as soon as possible since she is stage V renal insufficiency and within 6 months I suspect she will require dialysis treatment. With her elevated CRP can be sure that there is an underlying infective process. Possibly secondary infected lesions of her shingles in her left georgette-forehead and scalp. We'll place on doxycycline 100 mg twice a day for the next 10 days. Her INR is supratherapeutic and she is to place her Coumadin on hold for the next 3 days until after she sees a physician in [place] regards to facet joint injection. She takes it in the evening and therefore we will not take this evening's dose. There is her for it will be withheld Saturday and Saturday night in presumably resumed on Saturday. She is on this because of previous DVTs and pulmonary embolism. Departure - Departure Time of Disposition: 20:20 Disposition: Home, Self-Care 01 Condition: Fair Clinical Impression: Chronic renal insufficiency, stage V, Supratherapeutic INR, Herpes zoster, Lumbar back pain with radiculopathy affecting left lower extremity Congestive heart failure Qualifiers: Heart failure type: unspecified Heart failure chronicity: acute on chronic Qualified Code(s): I50.9 - Heart failure, unspecified Anemia Qualifiers: Anemia type: due to chronic kidney disease Chronic kidney disease stage: stage 5, not on chronic dialysis Qualified Code(s): N18.5 - Chronic kidney disease, stage 5 - Discharge Information Prescriptions: Doxycycline [Vibramycin] 100 mg PO BID #20 cap Furosemide [Lasix] 40 mg PO DAILY #30 tablet Instructions: What You Need to Know About Warfarin, Prothrombin Time, International Normalized Ratio Test, Heart Failure, [id number], End-Stage Kidney Disease Referrals: Sandi Stevenson COPIER OPERATOR [Primary Care Provider] - Forms: ED Department Discharge Additional Instructions: Evaluation the emergency room today for multitude of reasons. One is increased low back pain radiating down your left leg presumably due to spinal stenosis which means arthritis growing around the nerve in your lower back which is worsened when you are standing or attempting to walk. Weakness was very bad today and you could not get up from the toilet because of weakness. Pain was part of that problem. Identified in the ED that you're suffering significant kidney insufficiency benefit gets much worse than you would require dialysis 3 times a week. You need to get set up with a weight count operator fairly soon to establish a plan of action if your kidneys quit working. Third problem was anemia which means low hemoglobin. This is likely secondary to poor renal function. You're given a unit of blood today to boost her hemoglobin from 8 up into the nines. It is hopeful that this will help with your weakness and her energy level. Fourthly we identified that she do have an increased amount of fluid buildup in your lungs which is causing you to be more short of breath and weak. Slower 0 oxygen level. You're treated in the ED with dose of Lasix intravenously to help remove some of this extra fluid from your lungs. Will need to start a Lasix tablet 40 mg once every morning in an effort to keep the fluid out of your lungs and improve your oxygen levels and energy levels. Last we identified that you have shingles on your left forehead face and upper eyelid and medial part of your nose. This is already 6 days old and therefore he would not benefit from antiviral medication at this time. Signals rash will get better over the next 2 weeks but it will leave some scarring or discoloration of her skin from to a year. Lastly we identified your Coumadin is too strong in your blood. INR today was 4.0 and we would like you're committed time to be around 2.3. Therefore Coumadin needs to be withheld tonight tomorrow night and the next night. Also since you have an appointment to see the doctor in [facility] for potential facet joint injection of steroid on Saturday is important that she were not on high-dose Coumadin as he cannot perform this procedure as you would bleed at the site of injection. Coumadin is to be re-is resumed on Saturday after you see the doctor in [place]. The other medication prescribed is doxycycline 100 mg twice a day due to suspect low-grade infection. The source of this infection is unclear. It may be secondary to the shingles rash.
[2018-10-03] MEDS ORDERED: Dextrose 5%-0.9% NaCl 1,000 ML IV SCH (10:00)
--- NOTE | 2018-10-03 10:45 | CR ---
Chest: Portable view of the chest was obtained. Comparison: Prior chest x-ray of 11/27/12. Heart is enlarged. Slightly prominent right hilum is seen which appears stable and felt to be due to vascular confluence. Minimal atelectasis is noted within the left base. Lungs otherwise are clear. No acute pulmonary vascular congestion is seen. Bony structures are grossly intact. Impression: 1. Mild cardiomegaly. Other incidental findings. Nothing acute is suspected. Diagnostic code #2
[2018-10-03] MEDS ORDERED: Acetaminophen/oxyCODONE 325-5 MG Tab PO ONE (15:40)
[2018-10-03] MEDS ORDERED: Sodium Chloride 0.9% 500 ML IV SCH (16:45)
[2018-10-03] MEDS ORDERED: Furosemide 40 MG/4 ML VIAL IVPUSH ONE (18:30)
[2018-10-03] MEDS ORDERED: HYDROmorphone 1 MG/ML Syringe IVPUSH ONE (18:31)
[2018-10-03] MEDS ORDERED: Ondansetron 4 MG/2 ML SDV IVPUSH ONE (18:32)
[2018-10-03 19:23] VITALS: BP 133/54
== END 2018-10-03 20:55 | disposition home or self-care (01) ==
LOC: JD.ED 09:43 → SUPCPDRO 09:43 → JD.ED 20:55
DX: I13.2 Hypertensive heart and chronic kidney disease with heart failure and with stage 5 chronic kidney disease, or end stage renal disease (principal); N18.5 Chronic kidney disease, stage 5; I50.9 Heart failure, unspecified; B02.9 Zoster without complications; M54.16 Radiculopathy, lumbar region; E78.00 Pure hypercholesterolemia, unspecified; E03.9 Hypothyroidism, unspecified; F41.9 Anxiety disorder, unspecified; R79.1 Abnormal coagulation profile; Z79.01 Long term (current) use of anticoagulants; Z79.82 Long term (current) use of aspirin
CPT/HCPCS: 36415; 36430; 71045; 80053; 81001; 82553; 83605; 83735; 83880; 84484; 85007; 85027; 85610; 85652; 86140; 86850; 86900; 86901; 86922; 87040; 93005; 96361; 96374; 96375; 99285; A9270; J1170; J1940; J2405; J7040; J7042; P9016; 93010

== ENCOUNTER 2018-10-04 10:00 | Emergency (ER) | payer MEDICARE, MEDICAID ==
[2018-10-04] MEDS ORDERED: Sodium Chloride 0.9% 500 ML IV ONE (10:46)
--- NOTE | 2018-10-04 11:52 | EDM.PDOC ---
<Reginald Cunha - Last Filed: 10/04/18 13:32> ED HPI GENERAL MEDICAL PROBLEM - General Chief Complaint: General Stated Complaint: [facility] Time Seen by Provider: 10/04/18 10:25 Source of Information: Reports: Patient, Family (Daughter), RN Notes Reviewed Right Hip Pain Score (Numeric/FACES): 7 - Related Data Allergies Allergy/AdvReac Type Severity Reaction Status Date / Time No Known Allergies Allergy Verified 10/04/18 10:10 Home Meds: Home Meds Warfarin [Coumadin] 2.5 mg PO DAILY 11/11/15 [History] Aspirin [Ivan Chewable] 81 mg PO DAILY 01/02/16 [History] Atenolol [Tenormin] 50 mg PO DAILY 01/02/16 [History] Diltiazem HCl [Diltiazem 24Hr ER] 240 mg PO DAILY 01/02/16 [History] LORazepam 0.5 mg PO DAILY PRN 01/02/16 [History] Levothyroxine [Synthroid] 88 mcg PO DAILY 01/02/16 [History] Losartan/Hydrochlorothiazide [Losartan-HCTZ 100-25 MG] 1 each PO DAILY 01/02/16 [History] Magnesium 400 mg PO DAILY 01/02/16 [History] [place]-3/DHA/Epa/Fish Oil [Fish Oil] 500 mg PO BID 01/02/16 [History] Pravastatin Sodium [Pravastatin (Pravachol)] 40 mg PO DAILY 01/02/16 [History] Ubidecarenone [COQ-10] 30 mg PO DAILY 01/02/16 [History] B2/Vit A,C & E/Lut/Zeaxanth/Mn [Icaps] 1 tab PO BID 07/05/18 [History] Cholecalciferol (Vitamin D3) [Vitamin D3] 1 tab PO DAILY 07/05/18 [History] Gabapentin [Neurontin] 100 mg PO TID #90 capsule 09/01/18 [Rx] Polyethylene Glycol 3350 [MiraLAX] 17 gm PO DAILY #1 cont 09/01/18 [Rx] oxyCODONE HCl/Acetaminophen [Percocet 10-325 mg Tablet] 1 - 2 each PO Q4H PRN # 36 tablet 09/01/18 [Rx] predniSONE [Deltasone] 20 mg PO ASDIRECTED #21 tablet 09/01/18 [Rx] Dextromethorphan HBr [Delsym 30 MG/5 ML Susp] 5 ml PO Q4H PRN 10/03/18 [History] Doxycycline [Vibramycin] 100 mg PO BID #20 cap 10/03/18 [Rx] Furosemide [Lasix] 40 mg PO DAILY #30 tablet 10/03/18 [Rx] Ultra Womens Daily 1 tab PO DAILY 10/03/18 [History] Vitamin B Complex [Super B-50 Complex] 1 tab PO DAILY 10/03/18 [History] guaiFENesin [Mucinex] 600 mg PO BID PRN 10/03/18 [History] Past Medical History HEENT History: Reports: Impaired Vision Cardiovascular History: Reports: Blood Clots/VTE/DVT, High Cholesterol, Hypertension Respiratory History: Reports: PE, Sleep Apnea, Other (See Below) Genitourinary History: Reports: UTI, 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 - Infectious Disease History Infectious Disease History: Reports: Measles - Past Surgical History HEENT Surgical History: Reports: Cataract Surgery Cardiovascular Surgical History: Reports: Vascular Surgery Other Cardiovascular Surgeries/Procedures: blood clot filter GI Surgical History: Reports: Cholecystectomy Social & Family History - Family History Family Medical History: Noncontributory - Tobacco Use Smoking Status *Q: Former Smoker Used Tobacco, but Quit: Yes Month/Year Tobacco Last Used: 1959 - Caffeine Use Caffeine Use: Reports: Coffee - Recreational Drug Use Recreational Drug Use: No - Living Situation & Occupation Living situation: Reports: , Alone Occupation: Retired Course - Vital Signs Last Recorded V/S: Last Vital Signs Temp 98.9 F 10/04/18 13:22 Pulse 82 10/04/18 13:22 Resp 12 10/04/18 13:22 BP 88/61 L 10/04/18 13:22 Pulse Ox 95 10/04/18 13:22 - Orders/Labs/Meds Orders: Active Orders 24 hr Category Date Time Status EKG Documentation Completion [RC] STAT Care 10/04/18 10:45 Active Chest 1V Frontal [CR] Stat Exams 10/04/18 10:45 Taken HEMOGLOBIN/HEMATOCRIT,HH [HEME] Routine Lab 10/04/18 16:00 Ordered RED BLOOD CELLS LP [BBK] Stat Lab 10/04/18 10:55 Results TYPE AND SCREEN [BBK] Stat Lab 10/04/18 10:55 Results Peripheral IV Insertion Adult [OM.PC] Urgent Oth 10/04/18 11:59 Ordered Transfuse PRBC [Transfuse Red Blood Cells] [COMM] Stat Oth 10/04/18 11:59 Ordered Labs: Laboratory Tests 10/04/18 10/04/18 10/04/18 Range/Units 10:55 10:55 10:55 WBC 7.07 (3.98-10.04) K/mm3 RBC 2.73 L (3.98-5.22) M/mm3 Hgb 7.9 L (11.2-15.7) gm/L Hct 26.8 L (34.1-44.9) % MCV 98.2 H (79.4-94.8) fl MCH 28.9 (25.6-32.2) pg MCHC 29.5 L (32.2-35.5) g/dl RDW Std Deviation 68.2 H (36.4-46.3) fL Plt Count 221 (182-369) K/mm3 MPV 9.2 L (9.4-12.3) fl Neut % (Auto) 66.7 (34.0-71.1) % Lymph % (Auto) 17.7 L (19.3-51.7) % Wilkinson % (Auto) 11.2 (4.7-12.5) % Eos % (Auto) 2.4 (0.7-5.8) Baso % (Auto) 0.3 (0.1-1.2) % Neut # (Auto) 4.72 (1.56-6.13) K/mm3 Lymph # (Auto) 1.25 (1.18-3.74) K/mm3 Wilkinson # (Auto) 0.79 H (0.24-0.36) K/mm3 Eos # (Auto) 0.17 (0.04-0.36) K/mm3 Baso # (Auto) 0.02 (0.01-0.08) K/mm3 Manual Slide Review Abnormal smear PT (9.5-12.1) SECONDS INR Sodium 139 (136-145) mEq/L Potassium 4.0 (3.5-5.1) mEq/L Chloride 103 (98-107) mEq/L Carbon Dioxide 27 (21-32) mEq/L Anion Gap 13.0 (5-15) BUN 75 H (7-18) mg/dL Creatinine 3.6 H (0.55-1.02) mg/dL Est Cr Clr Drug Dosing 13.70 mL/min Estimated GFR (MDRD) 12 (>60) mL/min BUN/Creatinine Ratio 20.8 H (14-18) Glucose 112 (83-115) mg/dL Calcium 8.8 (8.5-10.1) mg/dL Total Bilirubin 0.7 (0.2-1.0) mg/dL AST 18 (15-37) U/L ALT 22 (14-59) U/L Alkaline Phosphatase 59 (46-116) U/L Troponin I 0.543 H* (0.00-0.056) ng/mL NT-Pro-B Natriuret Pep 5756 H (0-450) pg/mL Total Protein 6.0 L (6.4-8.2) g/dl Albumin 2.6 L (3.4-5.0) g/dl Globulin 3.4 gm/dL Albumin/Globulin Ratio 0.8 L (1-2) Blood Type Gel Antibody Screen Crossmatch 10/04/18 10/04/18 Range/Units 10:55 10:55 WBC (3.98-10.04) K/mm3 RBC (3.98-5.22) M/mm3 Hgb (11.2-15.7) gm/L Hct (34.1-44.9) % MCV (79.4-94.8) fl MCH (25.6-32.2) pg MCHC (32.2-35.5) g/dl RDW Std Deviation (36.4-46.3) fL Plt Count (182-369) K/mm3 MPV (9.4-12.3) fl Neut % (Auto) (34.0-71.1) % Lymph % (Auto) (19.3-51.7) % Wilkinson % (Auto) (4.7-12.5) % Eos % (Auto) (0.7-5.8) Baso % (Auto) (0.1-1.2) % Neut # (Auto) (1.56-6.13) K/mm3 Lymph # (Auto) (1.18-3.74) K/mm3 Wilkinson # (Auto) (0.24-0.36) K/mm3 Eos # (Auto) (0.04-0.36) K/mm3 Baso # (Auto) (0.01-0.08) K/mm3 Manual Slide Review PT 34.0 H (9.5-12.1) SECONDS INR 3.19 Sodium (136-145) mEq/L Potassium (3.5-5.1) mEq/L Chloride (98-107) mEq/L Carbon Dioxide (21-32) mEq/L Anion Gap (5-15) BUN (7-18) mg/dL Creatinine (0.55-1.02) mg/dL Est Cr Clr Drug Dosing mL/min Estimated GFR (MDRD) (>60) mL/min BUN/Creatinine Ratio (14-18) Glucose (83-115) mg/dL Calcium (8.5-10.1) mg/dL Total Bilirubin (0.2-1.0) mg/dL AST (15-37) U/L ALT (14-59) U/L Alkaline Phosphatase (46-116) U/L Troponin I (0.00-0.056) ng/mL NT-Pro-B Natriuret Pep (0-450) pg/mL Total Protein (6.4-8.2) g/dl Albumin (3.4-5.0) g/dl Globulin gm/dL Albumin/Globulin Ratio (1-2) Blood Type O POSITIVE Gel Antibody Screen Negative Crossmatch See Detail Meds: Medications Discontinued Medications Generic Name Dose Route Start Last Admin Trade Name Freq PRN Reason Stop Dose Admin Acetaminophen 650 mg 10/04/18 11:59 10/04/18 13:20 Tylenol PO 10/04/18 12:00 650 mg NOW ONE Administration Diphenhydramine HCl 25 mg 10/04/18 11:59 10/04/18 13:00 Benadryl IV 10/04/18 12:00 Not Given ONETIME ONE Diphenhydramine HCl 25 mg 10/04/18 12:54 10/04/18 12:52 Benadryl IVPUSH 10/04/18 12:55 25 mg ONETIME ONE Administration Furosemide 40 mg 10/04/18 11:59 10/04/18 12:59 Lasix IVPUSH 10/04/18 12:00 40 mg NOW ONE Administration Sodium Chloride 500 mls @ 999 mls/hr 10/04/18 10:46 10/04/18 11:03 Normal Saline IV 10/04/18 11:16 999 mls/hr .BOLUS ONE Administration Pantoprazole Sodium 40 mg 10/04/18 13:11 10/04/18 13:21 Protonix Iv IVPUSH 10/04/18 13:12 40 mg ONETIME ONE Administration - Re-Assessments/Exams Free Text/Narrative Re-Assessment/Exam: 10/04/18 13:32 Hx and exam was done by DELMER Knowles. I have also examined patient, discussed symptoms with patient and family. I agree with hx and exam as documented. I agree with treatment provided, plan to transfer to [facility] to higher level of care. Departure - Departure Disposition: DC/Tfer to Acute Hospital 02 Clinical Impression: Hypoxemia, CHF, Congestive heart failure GI bleed Qualifiers: GI bleed type/associated pathology: unspecified gastrointestinal hemorrhage type Qualified Code(s): K92.2 - Gastrointestinal hemorrhage, unspecified - Discharge Information Referrals: PCP,None [Primary Care Provider] - Forms: ED Department Discharge - My Orders Last 24 Hours: My Active Orders 10/04/18 10:45 EKG Documentation Completion [RC] STAT Chest 1V Frontal [CR] Stat - Assessment/Plan Last 24 Hours: My Active Orders 10/04/18 10:45 EKG Documentation Completion [RC] STAT Chest 1V Frontal [CR] Stat <Yuly Brandt - Last Filed: 10/04/18 14:05> ED HPI GENERAL MEDICAL PROBLEM - General History Limitations: Reports: No Limitations - History of Present Illness INITIAL COMMENTS - FREE TEXT/NARRATIVE: 78 y/o female presents to ER with cc weakness. She arrived per [facility]. She reports she has been weak and is not able to walk or get up for the toilet this morning. She lives at home with her granddaughter. She was seen yesterday for similar symptoms of "just not feeling well and increased weakness." She does use a scooter to get around the house. She Has a history of CHG, ARF, HTN, A-FIB, DVT, PE, Left facial shingles, sleep apnea, hypothyroidism, obesity and B12 deficiency. She reports chronic right hip and back pain. She is scheduled to have point injections in 2 days at [place] by her pain management doctor. Her Coumadin is currently on hold for this pending procedure. She states she did take her Percocet and Ativan this morning for pain. Upon arrival her oxygen level was 86% on room air and herj B/P was 84/55 (54). She denies fever, chills, SOB or chest pain. She is accompanied by her daughter and granddaughter. Onset Date: 10/04/18 Onset Time: 06:00 Duration: Getting Worse Location: Reports: Generalized (weakness) Severity: Mild Improves with: Reports: None Worsens with: Reports: None Associated Symptoms: Reports: Weakness. Denies: Confusion, Chest Pain, Fever/ Chills, Nausea/Vomiting, Shortness of Breath ED ROS GENERAL - Review of Systems Review Of Systems: See Below Constitutional: Reports: No Symptoms, Weakness. Denies: Fever, Chills HEENT: Reports: Other (left forehead and anterior scalp, upper eyelid herpes zoster.). Denies: Eye Pain Respiratory: Reports: Cough. Denies: Shortness of Breath Cardiovascular: Denies: Chest Pain Endocrine: Reports: No Symptoms GI/Abdominal: Reports: No Symptoms : Reports: No Symptoms Musculoskeletal: Reports: Back Pain, Other (right hip pain) Neurological: Reports: Dizziness, Difficulty Walking, Weakness, Gait Disturbance. Denies: Numbness, Tingling, Change in Speech Psychiatric: Reports: No Symptoms Hematologic/Lymphatic: Reports: Anemia, Easy Bruising (on coumadin) Immunologic: Reports: No Symptoms ED EXAM, GENERAL - Physical Exam Exam: See Below Exam Limited By: No Limitations General Appearance: Alert, WD/WN, No Apparent Distress Eye Exam: Bilateral Eye: EOMI, PERRL Throat/Mouth: Normal Oropharynx (lips are dry and coated. ), Normal Voice, No Airway Compromise, Other Head: Atraumatic, Normocephalic, Other (left forehead, upper eyelid exteding into hairline, hepes zoster noted. ) Neck: Normal Inspection, Supple, Non-Tender, Full Range of Motion Respiratory/Chest: No Respiratory Distress, No Accessory Muscle Use, Chest Non- Tender, Crackles. No: Pleural Rub Cardiovascular: Normal Peripheral Pulses, No JVD, No Murmur, No Rub, Irregularly Irregular, Other (pedal edema + 1) GI/Abdominal: Normal Bowel Sounds, Soft, Non-Tender, No Organomegaly, No Distention, No Abnormal Bruit, No Mass, Pelvis Stable Extremities: Pedal Edema, Limited Range of Motion (due to weakness. ) Neurological: Alert, Oriented, CN II-XII Intact, Normal Cognition, Normal Gait, Normal Reflexes, No Motor/Sensory Deficits Psychiatric: Normal Affect, Normal Mood Skin Exam: Warm, Dry, Intact, Normal Color, Zoster-Like Rash (left forehead/ facial region) Lymphatic: No Adenopathy EKG INTERPRETATION EKG Date: 10/04/18 Time: 11:09 Rhythm: A-Fib Rate (Beats/Min): 84 Course - Re-Assessments/Exams Free Text/Narrative Re-Assessment/Exam: 10/04/18 1200 I reviewed her labs her hemoglobin 7.9 hematocrit 26.8 this is down from 8.0/ 27.2 yesterday after recieving a unit of RBC. INR is 3.191 is 75 creatinine is 3.6 this is elevated from yesterday which was 3.1. Her troponin is 0.543 this is up from yesterday which is 0.035. In addition her BNP is 5756 this is up from yesterday which was 1543. troponin elevated 0.543 this maybe due to ARF. She denie chest pain or SOB. EKG reveals atrial fib with RVR rate in the 80s. Upon arrival patient was 86% on room air she was placed on 2 L nasal cannula and her sat is now 96%. Her b/P 84/44 (map 58). I will give a 500 cc bolus. 10/04/18 12:[address] Alvares harpooner hospitalist and she saw patient in the ED. [address] Alvares lab results and she indicated we do not have a ICU bed at this time, therefore she could not be admitted to our facility. 1240 called transfer center in [facility] and spoke with Seth Hahn dry transfer man. He will discuss case with hospitalist and get back with me. [address] Edwards who is accepting the patent and she will be admitted to PCU. Departure - Departure Time of Disposition: 13:40 Condition: Fair
[2018-10-04] MEDS ORDERED: Furosemide 40 MG/4 ML VIAL IVPUSH ONE (11:59)
[2018-10-04] MEDS ORDERED: Acetaminophen 325 MG Tab PO ONE (11:59)
[2018-10-04] MEDS: diphenhydrAMINE 50 MG/ML SDV IV ONE ×2 (12:52→13:00)
[2018-10-04] MEDS ORDERED: diphenhydrAMINE 50 MG/ML SDV IVPUSH ONE (12:54)
[2018-10-04] MEDS ORDERED: Pantoprazole 40 MG Vial IVPUSH ONE (13:11)
[2018-10-04 14:16] VITALS: BP 115/49
--- NOTE | 2018-10-05 08:05 | CR ---
Chest: Portable view of the chest was obtained. Comparison: Prior chest x-ray of 10/03/18. Heart is enlarged. Linear density is seen within the left base most likely due to stable atelectasis or possibly scarring. Lungs otherwise are clear. Bony structures show scattered degenerative endplate spurring within the spine with mild scoliosis. Impression: 1. Cardiomegaly. Other incidental findings. 2. Nothing acute is appreciated. Diagnostic code #2
== END 2018-10-04 13:54 ==
LOC: JD.ED 10:00
DX: K92.2 Gastrointestinal hemorrhage, unspecified (principal); R09.02 Hypoxemia; I11.0 Hypertensive heart disease with heart failure; I50.9 Heart failure, unspecified; R21 Rash and other nonspecific skin eruption; I48.91 Unspecified atrial fibrillation; E78.00 Pure hypercholesterolemia, unspecified; F41.9 Anxiety disorder, unspecified; E03.9 Hypothyroidism, unspecified; Z79.899 Other long term (current) drug therapy; Z87.891 Personal history of nicotine dependence; Z79.82 Long term (current) use of aspirin; Z79.01 Long term (current) use of anticoagulants
CPT/HCPCS: 36415; 71045; 80053; 83880; 84484; 85025; 85610; 93005; 96374; 96375; 99285; A9270; C9113; J1200; J1940; J7040; P9016

== ENCOUNTER 2019-04-17 15:53 | Emergency (ER) | payer MEDICARE, MEDICAID ==
[2019-04-17 16:24] VITALS: BP 153/65; PULSE 73
--- NOTE | 2019-04-17 19:45 | EDM.PDOC ---
ED HPI GENERAL MEDICAL PROBLEM - General Chief Complaint: Lower Extremity Injury/Pain Stated Complaint: L LEG PAIN Time Seen by Provider: 04/17/19 16:59 Source of Information: Reports: Patient, RN Notes Reviewed - History of Present Illness INITIAL COMMENTS - FREE TEXT/NARRATIVE: 79 year old female comes in with concern about LLE discomfort that has been present for the last 2 days. 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 Not aware of any injury. On coumadin with hx of prior PE. No fever, chills, chest pain or difficulty breathing. Left Lower Leg Pain Score (Numeric/FACES): 2 - Related Data Allergies Allergy/AdvReac Type Severity Reaction Status Date / Time No Known Allergies Allergy Verified 04/17/19 16:24 Home Meds: Home Meds Aspirin [Ivan Chewable] 81 mg PO DAILY 01/02/16 [History] Levothyroxine [Synthroid] 88 mcg PO DAILY 01/02/16 [History] Losartan/Hydrochlorothiazide [Losartan-HCTZ 100-25 MG] 1 each PO DAILY 01/02/16 [History] Magnesium 400 mg PO DAILY 01/02/16 [History] Pravastatin Sodium [Pravastatin (Pravachol)] 40 mg PO DAILY 01/02/16 [History] Ubidecarenone [COQ-10] 100 mg PO DAILY 01/02/16 [History] dilTIAZem HCl [Diltiazem 24Hr ER] 240 mg PO DAILY 01/02/16 [History] Cholecalciferol (Vitamin D3) [Vitamin D3] 5,000 units PO DAILY 07/05/18 [History ] Gabapentin [Neurontin] 100 mg PO TID #90 capsule 09/01/18 [Rx] Polyethylene Glycol 3350 [MiraLAX] 17 gm PO DAILY #1 cont 09/01/18 [Rx] Furosemide [Lasix] 40 mg PO DAILY #30 tablet 10/03/18 [Rx] Ultra Womens Daily 1 tab PO DAILY 10/03/18 [History] Vitamin B Complex [Super B-50 Complex] 1 tab PO DAILY 10/03/18 [History] Acetaminophen [Tylenol Extra Strength] 1,000 mg PO DAILY PRN 01/11/19 [History] Ascorbate Calcium [Vitamin C] 500 mg PO DAILY 01/11/19 [History] Cyclobenzaprine [Flexeril] 5 mg PO TID PRN 01/11/19 [History] DULoxetine [Cymbalta] 30 mg PO DAILY 01/11/19 [History] Loratadine [Claritin] 10 mg PO DAILY 01/11/19 [History] Metoprolol Succinate 50 mg PO DAILY 01/11/19 [History] Non-Formulary Medication [NF Drug] 1 tab PO DAILY 01/11/19 [History] Omeprazole 40 mg PO DAILY 01/11/19 [History] Omeprazole 40 mg PO DAILY 01/11/19 [History] Sennosides/Docusate Sodium [Senna Plus Tablet] 1 each PO DAILY PRN 01/11/19 [ History] Warfarin Dosing [Coumadin Ask] 1 dose PO ASDIRECTED 01/11/19 [History] Zinc Gluconate [Zinc] 50 mg PO DAILY 01/11/19 [History] fentaNYL [Duragesic] 50 mcg TRDERM ASDIRECTED 01/11/19 [History] guaiFENesin [Mucinex] 1,200 mg PO DAILY 01/11/19 [History] oxyCODONE HCl/Acetaminophen [Percocet 10-325 mg Tablet] 1 each PO Q6H PRN [History] predniSONE [Deltasone] 5 mg PO ASDIRECTED 01/11/19 [History] Past Medical History HEENT History: Reports: Impaired Vision Cardiovascular History: Reports: Blood Clots/VTE/DVT, High Cholesterol, Hypertension Respiratory History: Reports: PE, Sleep Apnea, Other (See Below) Genitourinary History: Reports: UTI, Recurrent 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 - Infectious Disease History Infectious Disease History: Reports: Measles, Shingles - Past Surgical History HEENT Surgical History: Reports: Cataract Surgery Cardiovascular Surgical History: Reports: Vascular Surgery Other Cardiovascular Surgeries/Procedures: blood clot filter GI Surgical History: Reports: Cholecystectomy Dermatological Surgical History: Reports: Other (See Below) Social & Family History - Family History Family Medical History: Noncontributory - Tobacco Use Smoking Status *Q: Never Smoker - Caffeine Use Caffeine Use: Reports: None - Recreational Drug Use Recreational Drug Use: No - Living Situation & Occupation Living situation: Reports: , Alone Occupation: Retired Review of Systems - Review of Systems Review Of Systems: See Below Constitutional: Denies: Chills, Fever Mouth/Throat: Reports: No Symptoms Respiratory: Denies: Shortness of Breath, Pleuritic Chest Pain Cardiovascular: Denies: Chest Pain GI/Abdominal: Denies: Abdominal Pain, Nausea, Vomiting Musculoskeletal: Reports: Leg Pain Skin: Reports: Erythema (slight erythema distal LLE) Neurological: Reports: No Symptoms (no acute sx) ED EXAM, GENERAL - Physical Exam Exam: See Below General Appearance: Alert, No Apparent Distress Eye Exam: Bilateral Eye: PERRL Head: Atraumatic. No: Facial Swelling Neck: Supple Respiratory/Chest: No Respiratory Distress, Lungs Clear, Normal Breath Sounds. No: Rhonchi, Wheezing Cardiovascular: Regular Rate, Rhythm GI/Abdominal: Soft, Non-Tender Extremities: Redness (area of slight erythema L lower distal leg, very slight swelling, very localized, remainder of leg nontender and without swelling, warmth or erythema), Other (small wound vac L heel, surrounding area of foot looks good) Neurological: Other (no focal weakness) Skin Exam: Warm, Dry Course - Vital Signs Last Recorded V/S: Last Vital Signs Temp 98.0 F 04/17/19 16:18 Pulse 73 04/17/19 16:18 Resp 19 04/17/19 16:18 BP 153/65 H 04/17/19 16:18 Pulse Ox 94 L 04/17/19 16:18 - Orders/Labs/Meds Labs: Laboratory Tests 04/17/19 04/17/19 04/17/19 Range/Units 17:40 17:40 17:40 WBC 7.77 (3.98-10.04) K/mm3 RBC 2.85 L (3.98-5.22) M/mm3 Hgb 8.2 L (11.2-15.7) gm/dl Hct 28.1 L (34.1-44.9) % MCV 98.6 H (79.4-94.8) fl MCH 28.8 (25.6-32.2) pg MCHC 29.2 L (32.2-35.5) g/dl RDW Std Deviation 57.2 H (36.4-46.3) fL Plt Count 275 (182-369) K/mm3 MPV 8.8 L (9.4-12.3) fl Neut % (Auto) 71.8 H (34.0-71.1) % Lymph % (Auto) 14.9 L (19.3-51.7) % Ponce % (Auto) 8.6 (4.7-12.5) % Eos % (Auto) 3.7 (0.7-5.8) Baso % (Auto) 0.5 (0.1-1.2) % Neut # (Auto) 5.57 (1.56-6.13) K/mm3 Lymph # (Auto) 1.16 L (1.18-3.74) K/mm3 Ponce # (Auto) 0.67 H (0.24-0.36) K/mm3 Eos # (Auto) 0.29 (0.04-0.36) K/mm3 Baso # (Auto) 0.04 (0.01-0.08) K/mm3 Manual Slide Review Abnormal smear PT 28.7 H D (9.7-12.0) SECONDS INR 2.79 Sodium 137 (136-145) mEq/L Potassium 4.2 (3.5-5.1) mEq/L Chloride 100 (98-107) mEq/L Carbon Dioxide 33 H (21-32) mEq/L Anion Gap 8.2 (5-15) BUN 26 H (7-18) mg/dL Creatinine 1.6 H (0.55-1.02) mg/dL Est Cr Clr Drug Dosing 29.82 mL/min Estimated GFR (MDRD) 31 (>60) mL/min BUN/Creatinine Ratio 16.3 (14-18) Glucose 112 (83-115) mg/dL Calcium 9.6 (8.5-10.1) mg/dL Total Bilirubin 0.7 (0.2-1.0) mg/dL AST 15 (15-37) U/L ALT 16 (14-59) U/L Alkaline Phosphatase 70 (46-116) U/L Total Protein 7.3 (6.4-8.2) g/dl Albumin 3.2 L (3.4-5.0) g/dl Globulin 4.1 gm/dL Albumin/Globulin Ratio 0.8 L (1-2) - Re-Assessments/Exams Free Text/Narrative Re-Assessment/Exam: 04/29/19 14:29. INR looks good at 2.79. WBC nl, discharge instr. as documented. Departure - Departure Time of Disposition: 19:43 Disposition: Home, Self-Care 01 Condition: Fair Clinical Impression: Leg pain, left, Leg edema, left - Discharge Information Instructions: Edema Referrals: Sandi Stevenson HOT FRAME TENDER [Primary Care Provider] - Forms: ED Department Discharge Additional Instructions: Your pro time INR today was good, therapeutic at 2.79. Continue Coumadin and other medications as currently prescribed. Continue to elevate legs is much as possible. Your hemoglobin was found to be moderately low today at 8.2. Try eat plenty of red meat and can set her iron supplement daily if you are not already taking iron. Follow-up with your regular medical provider in about 5-7 days for recheck. Return to ED as needed if symptoms worsening in any way.
== END 2019-04-17 19:52 | disposition home or self-care (01) ==
LOC: JD.ED 15:53
DX: R60.0 Localized edema (principal); E78.00 Pure hypercholesterolemia, unspecified; I10 Essential (primary) hypertension; F41.9 Anxiety disorder, unspecified; E03.9 Hypothyroidism, unspecified; Z86.711 Personal history of pulmonary embolism; Z79.01 Long term (current) use of anticoagulants; Z79.82 Long term (current) use of aspirin; Z79.899 Other long term (current) drug therapy; Z86.718 Personal history of other venous thrombosis and embolism
CPT/HCPCS: 36415; 80053; 85025; 85610; 99283

== ENCOUNTER 2019-07-22 16:20 | Inpatient (IN) | payer MEDICARE, MEDICAID ==
[2019-07-22] MEDS ORDERED: Sodium Chloride 0.9% 10 ML Syringe FLUSH PRN (16:50)
[2019-07-22] MEDS ORDERED: HYDROmorphone 1 MG/ML Syringe IVPUSH ONE (16:52)
--- NOTE | 2019-07-22 16:59 | EDM.PDOC ---
ED HPI GENERAL MEDICAL PROBLEM - General Chief Complaint: Back Pain or Injury Stated Complaint: [facility] Time Seen by Provider: 07/22/19 16:25 Source of Information: Reports: Patient, RN Notes Reviewed History Limitations: Reports: No Limitations - History of Present Illness INITIAL COMMENTS - FREE TEXT/NARRATIVE: Patient is an 79-year-old female who presents to the ED via [facility] for the evaluation of left knee pain and lower back pain. 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 Patient states that she is not able to move her knee much at all, as it is very very painful. She does note low back pain as well, she states the knee pain hurts worse than the back pain. She notes that she is on a 50 mcg fentanyl patch but recently got up to 62.5. And she also takes Percocet on a regular basis. Ambulance was called, as she could not get out of bed today due to the pain. The patient denies any fever/ chills, chest pain/shortness of breath, nausea/vomiting/diarrhea, dysuria/ frequency/urgency, the patient further denies any sort of open sores other than one on her left heel which is being overseen by home health nursing and her clinic providers. She does state that she is on warfarin as well, and her last INR done Saturday was 1.9. There is one bruise noted on the anterior left knee, however the patient denies any trauma to the area. Left Knee Pain Score (Numeric/FACES): 3 - Related Data Allergies Allergy/AdvReac Type Severity Reaction Status Date / Time No Known Allergies Allergy Verified 07/22/19 16:24 Home Meds: Home Meds Aspirin [Ivan Chewable] 81 mg PO DAILY 01/02/16 [History] Losartan/Hydrochlorothiazide [Losartan-HCTZ 100-25 MG] 1 each PO DAILY 01/02/16 [History] Pravastatin Sodium [Pravastatin (Pravachol)] 40 mg PO DAILY 01/02/16 [History] Ubidecarenone [COQ-10] 100 mg PO DAILY 01/02/16 [History] dilTIAZem HCl [Diltiazem 24Hr ER] 240 mg PO DAILY 01/02/16 [History] Gabapentin [Neurontin] 100 mg PO TID #90 capsule 09/01/18 [Rx] Furosemide [Lasix] 40 mg PO DAILY #30 tablet 10/03/18 [Rx] Vitamin B Complex [Super B-50 Complex] 1 tab PO DAILY 10/03/18 [History] Ascorbate Calcium [Vitamin C] 1,000 mg PO DAILY 01/11/19 [History] Metoprolol Succinate 50 mg PO DAILY 01/11/19 [History] Omeprazole 40 mg PO DAILY 01/11/19 [History] Sennosides/Docusate Sodium [Senna Plus Tablet] 1 each PO DAILY PRN 01/11/19 [ History] Warfarin Dosing [Coumadin Ask] 1 dose PO ASDIRECTED 01/11/19 [History] fentaNYL [Duragesic] 62.5 mcg TRDERM ASDIRECTED 01/11/19 [History] oxyCODONE HCl/Acetaminophen [Percocet 10-325 mg Tablet] 1 each PO Q6H PRN [History] Acetaminophen [Acetaminophen 8 Hour] 2 tab PO DAILY 07/22/19 [History] Acetaminophen/Diphenhydramine [Acetaminophen Pm Caplet] 2 tab PO BEDTIME [History] B2/Vits A,C,E/Lut/Zeaxanth/Min [Icaps] 1 tab PO DAILY 07/22/19 [History] Cholecalciferol (Vitamin D3) [Vitamin D3] 125 mcg PO DAILY 07/22/19 [History] Iron,Carbonyl/Ascorbic Acid [Iron 100-Vitamin C Tablet] 2 tab PO BID 07/22/19 [ History] LORazepam 0.5 mg PO DAILY PRN 07/22/19 [History] Levothyroxine [Synthroid] 100 mcg PO DAILY 07/22/19 [History] Magnesium Citrate 150 mg PO BID 07/22/19 [History] Multivitamin [Multivitamins] 2 tab PO DAILY 07/22/19 [History] [place]-3S/DHA/Epa/Fish Oil [[place]-3 Fish Oil 1,000 mg Sfgl] 2 cap PO DAILY [History] oxyCODONE HCl/Acetaminophen [Percocet 5-325 mg Tablet] 1 tab PO Q6HR PRN [History] Past Medical History HEENT History: Reports: Impaired Vision Cardiovascular History: Reports: Blood Clots/VTE/DVT, High Cholesterol, Hypertension Respiratory History: Reports: PE, Sleep Apnea Genitourinary History: Reports: UTI, Recurrent 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: Musculoskeletal History: Reports: Back Pain, Chronic, Osteoarthritis Neurological History: Reports: Neuropathy, Peripheral Psychiatric History: Reports: Anxiety Endocrine/Metabolic History: Reports: Hypothyroidism, Obesity/BMI 30+ Hematologic History: Reports: B12 Deficiency - Infectious Disease History Infectious Disease History: Reports: Chicken Pox, Measles, Shingles - Past Surgical History HEENT Surgical History: Reports: Cataract Surgery Cardiovascular Surgical History: Reports: Vascular Surgery Other Cardiovascular Surgeries/Procedures: blood clot filter GI Surgical History: Reports: Cholecystectomy Musculoskeletal Surgical History: Reports: Other (See Below) Other Musculoskeletal Surgeries/Procedures:: L foot sx Social & Family History - Family History Family Medical History: Noncontributory - Tobacco Use Smoking Status *Q: Never Smoker Second Hand Smoke Exposure: No - Caffeine Use Caffeine Use: Reports: None - Recreational Drug Use Recreational Drug Use: No - Living Situation & Occupation Living situation: Reports: , Alone Occupation: Retired Review of Systems - Review of Systems Review Of Systems: See Below Constitutional: Reports: Fever (pt denies, but has low grade fever at time of triage.). Denies: Chills, Weakness Respiratory: Denies: Shortness of Breath, Cough Cardiovascular: Denies: Chest Pain GI/Abdominal: Denies: Abdominal Pain, Bloody Stool, Constipation, Decreased Appetite, Diarrhea, Nausea, Vomiting Genitourinary: Denies: Dysuria, Hematuria, Painful Urination Musculoskeletal: Reports: Back Pain (bilateral low back pain), Leg Pain (Left knee pain), Joint Pain (Left knee pain) Skin: Reports: Wound (healing wound to L heel). Denies: Pallor, Erythema, Change in Color Neurological: Denies: Numbness, Tingling ED EXAM, GENERAL - Physical Exam Exam: See Below Exam Limited By: No Limitations General Appearance: Alert, WD/WN, No Apparent Distress, Obese (morbidly) Eye Exam: Bilateral Eye: EOMI, Normal Inspection, PERRL Respiratory/Chest: No Respiratory Distress, Lungs Clear, Normal Breath Sounds, No Accessory Muscle Use, Chest Non-Tender Cardiovascular: Normal Peripheral Pulses, Regular Rate, Rhythm, No Murmur Peripheral Pulses: 2+: Dorsalis Pedis (L) (mild amount of edema noted to dorsum of foot), 3+: Dorsalis Pedis (R) GI/Abdominal: Normal Bowel Sounds, Soft, Non-Tender, No Distention, No Mass Extremities: Normal Inspection, Normal Capillary Refill, Limited Range of Motion (of left leg/knee d/t pain), Increased Warmth (Of left leg). No: Joint Swelling (no obvious swelling appreciated as compared to R leg, however the entire leg is warm and painful. No other open sores noted other than the L heel sore that does not look infected.), Redness Neurological: Alert, Oriented, Normal Cognition, No Motor/Sensory Deficits Psychiatric: Normal Affect, Normal Mood Skin Exam: Warm, Dry, Intact, Normal Color, No Rash, Increased Warmth (of left leg). No: Erythema, Wound/Incision Course - Vital Signs Last Recorded V/S: Last Vital Signs Temp 99.0 F 07/22/19 16:21 Pulse 77 07/22/19 16:21 Resp 19 07/22/19 16:21 BP 138/51 L 07/22/19 16:21 Pulse Ox 90 L 07/22/19 16:21 - Orders/Labs/Meds Orders: Active Orders 24 hr Category Date Time Status Incentive Spirometry [RT Incentive Spirometry] [] Care 07/22/19 18:59 Active Q1HWA Insert Singh Catheter [Insert Urinary Catheter] [OM.PC] Care 07/22/19 18:45 Ordered ONETIME Oxygen Therapy, ED [RC] ASDIRECTED Care 07/22/19 16:53 Active Peripheral IV Care [RC] . DIRECTED Care 07/22/19 16:51 Active Urinary Catheter Assessment [RC] ASDIRECTED Care 07/22/19 18:45 Active Chest 1V Frontal [CR] Stat Exams 07/22/19 16:53 Taken Sodium Chloride 0.9% [Saline Flush] Med 07/22/19 16:50 Active 10 ml FLUSH ASDIRECTED PRN ROBERT Bandage [Elastic Wrap] [OM.PC] Routine Oth 07/22/19 19:00 Ordered Peripheral IV Insertion Adult [OM.] Routine Oth 07/22/19 16:50 Ordered Medication Orders Sodium Chloride (Saline Flush) 10 ml FLUSH ASDIRECTED PRN PRN Reason: Keep Vein Open Last Admin: 07/22/19 17:15 Dose: 10 ml Labs: Laboratory Tests 07/22/19 07/22/19 07/22/19 Range/Units 17:18 17:18 17:18 WBC 8.02 (3.98-10.04) K/mm3 RBC 2.97 L (3.98-5.22) M/mm3 Hgb 8.2 L (11.2-15.7) gm/dl Hct 28.6 L (34.1-44.9) % MCV 96.3 H (79.4-94.8) fl MCH 27.6 (25.6-32.2) pg MCHC 28.7 L (32.2-35.5) g/dl RDW Std Deviation 60.0 H (36.4-46.3) fL Plt Count 283 (182-369) K/mm3 MPV 8.3 L (9.4-12.3) fl Neutrophils % (Manual) 76 H (40-60) % Band Neutrophils % 1 (0-10) % Lymphocytes % (Manual) 9 L (20-40) % Atypical Lymphs % 0 % Monocytes % (Manual) 14 H (2-10) % Eosinophils % (Manual) 0 L (0.7-5.8) % Basophils % (Manual) 0 L (0.1-1.2) Platelet Estimate Adequate Polychromasia Few Hypochromasia 1+ slight Anisocytosis 2+ moderate Macrocytosis 2+ moderate Ovalocytes 1+ slight RBC Morph Comment Not Reportable PT 22.4 H (9.7-12.0) SECONDS INR 2.15 APTT 49 H (22-31) SECONDS Sodium 139 (136-145) mEq/L Potassium 4.6 (3.5-5.1) mEq/L Chloride 100 (98-107) mEq/L Carbon Dioxide 31 (21-32) mEq/L Anion Gap 12.6 (5-15) BUN 41 H (7-18) mg/dL Creatinine 2.2 H (0.55-1.02) mg/dL Est Cr Clr Drug Dosing 21.69 mL/min Estimated GFR (MDRD) 21 (>60) mL/min BUN/Creatinine Ratio 18.6 H (14-18) Glucose 122 H (83-115) mg/dL Calcium 9.7 (8.5-10.1) mg/dL Total Bilirubin 0.5 (0.2-1.0) mg/dL AST 11 L (15-37) U/L ALT 12 L (14-59) U/L Alkaline Phosphatase 71 (46-116) U/L NT-Pro-B Natriuret Pep (0-450) pg/mL Total Protein 7.7 (6.4-8.2) g/dl Albumin 2.9 L (3.4-5.0) g/dl Globulin 4.8 gm/dL Albumin/Globulin Ratio 0.6 L (1-2) Urine Color (Yellow) Urine Appearance (Clear) Urine pH (5.0-8.0) Ur Specific [place] (1.005-1.030) Urine Protein (Negative) Urine Glucose (UA) (Negative) Urine Ketones (Negative) Urine Occult Blood (Negative) Urine Nitrite (Negative) Urine Bilirubin (Negative) Urine Urobilinogen (0.2-1.0) Ur Leukocyte Esterase (Negative) Urine RBC (0-5) /hpf Urine WBC (0-5) /hpf Ur Squamous Epith Cells (0-5) /hpf Urine Bacteria (FEW) /hpf Hyaline Casts (0-5) /lpf Urine Mucus (FEW) /hpf Blood Type Gel Antibody Screen 07/22/19 07/22/19 07/22/19 Range/Units 17:18 17:18 18:37 WBC (3.98-10.04) K/mm3 RBC (3.98-5.22) M/mm3 Hgb (11.2-15.7) gm/dl Hct (34.1-44.9) % MCV (79.4-94.8) fl MCH (25.6-32.2) pg MCHC (32.2-35.5) g/dl RDW Std Deviation (36.4-46.3) fL Plt Count (182-369) K/mm3 MPV (9.4-12.3) fl Neutrophils % (Manual) (40-60) % Band Neutrophils % (0-10) % Lymphocytes % (Manual) (20-40) % Atypical Lymphs % % Monocytes % (Manual) (2-10) % Eosinophils % (Manual) (0.7-5.8) % Basophils % (Manual) (0.1-1.2) Platelet Estimate Polychromasia Hypochromasia Anisocytosis Macrocytosis Ovalocytes RBC Morph Comment PT (9.7-12.0) SECONDS INR APTT (22-31) SECONDS Sodium (136-145) mEq/L Potassium (3.5-5.1) mEq/L Chloride (98-107) mEq/L Carbon Dioxide (21-32) mEq/L Anion Gap (5-15) BUN (7-18) mg/dL Creatinine (0.55-1.02) mg/dL Est Cr Clr Drug Dosing mL/min Estimated GFR (MDRD) (>60) mL/min BUN/Creatinine Ratio (14-18) Glucose (83-115) mg/dL Calcium (8.5-10.1) mg/dL Total Bilirubin (0.2-1.0) mg/dL AST (15-37) U/L ALT (14-59) U/L Alkaline Phosphatase (46-116) U/L NT-Pro-B Natriuret Pep 3040 H (0-450) pg/mL Total Protein (6.4-8.2) g/dl Albumin (3.4-5.0) g/dl Globulin gm/dL Albumin/Globulin Ratio (1-2) Urine Color Yellow (Yellow) Urine Appearance Clear (Clear) Urine pH 5.5 (5.0-8.0) Ur Specific [place] 1.010 (1.005-1.030) Urine Protein Negative (Negative) Urine Glucose (UA) Negative (Negative) Urine Ketones Negative (Negative) Urine Occult Blood Negative (Negative) Urine Nitrite Negative (Negative) Urine Bilirubin Negative (Negative) Urine Urobilinogen 0.2 (0.2-1.0) Ur Leukocyte Esterase Negative (Negative) Urine RBC 0-5 (0-5) /hpf Urine WBC 0-5 (0-5) /hpf Ur Squamous Epith Cells 0-5 (0-5) /hpf Urine Bacteria Few (FEW) /hpf Hyaline Casts 10-20 H (0-5) /lpf Urine Mucus Moderate H (FEW) /hpf Blood Type O POSITIVE Gel Antibody Screen Negative Meds: Medications Generic Name Dose Route Start Last Admin Trade Name Freq PRN Reason Stop Dose Admin Sodium Chloride 10 ml 07/22/19 16:50 07/22/19 17:15 Saline Flush FLUSH 10 ml ASDIRECTED PRN Administration Keep Vein Open Discontinued Medications Generic Name Dose Route Start Last Admin Trade Name Flakito PRN Reason Stop Dose Admin Hydromorphone HCl 1 mg 07/22/19 16:52 07/22/19 17:14 Dilaudid IVPUSH 07/22/19 16:53 1 mg ONETIME ONE Administration - Re-Assessments/Exams Free Text/Narrative Re-Assessment/Exam: 07/22/19 17:03 Patient presents to the ED for the evaluation of left knee pain and low back pain. The patient feels much more warm than a temperature of 99 F. She is however denying any other sick-like symptoms. She states that there are no open sores on her body other than the one on the left heel. At this time the patient will be evaluated for a blood clot in her left leg as well, she is on warfarin however. IV will be placed with CBC, CMP, coagulation studies, quick cath UA, and 1 mg IV Dilaudid for initial management. If US is unremarkable, this may be a flair of her arthritis, she states that she cannot take any sort of anti-inflammatory like ibuprofen or aleve d/t being on Warfarin. 07/22/19 18:47 Patient's ultrasound is back, demonstrates 2 fluid collections within the left medial calf, that the radiologist felt could be a dissecting popliteal cyst or hematoma. These measured 10.2 cm x 1.8 cm, and 11.8 cm x 2.5 cm. Due to the patient's pain I would most likely think these are popliteal cysts in nature. Urinalysis was just obtained, will wait for those results before possible home discharge. Patient's labs have been resulted mostly, shows chronic anemia, hemoglobin is low at 8.2 and hematocrit is 28.6, patient does take iron supplementation for this and she has had low iron studies in the past. She also has an increased creatinine of 2.2 and a BUN of 41. Her BNP is also elevated at 3040, she does take 40 mg of Lasix daily. 07/22/19 19:19 Urinalysis demonstrates no sign of an acute bacterial infection. 07/22/19 19:35 As the patient was getting ready to be discharged, the RN raised questions of she has no family members at home. Upon talking with the patient, she states that she had a mobile scooter, she did not make it aware to me that she was not able to transfer back and forth to the scooter. At this time I did discuss possible hospital admission with Dr. Laws, for acute renal failure due to the creatinine being 2.2. She will be in to evaluate the patient. Departure - Departure Time of Disposition: 18:53 Disposition: Admitted As Inpatient 64 Condition: Fair Clinical Impression: Rupture of popliteal cyst of left knee region Low back pain Qualifiers: Chronicity: acute Back pain laterality: bilateral Sciatica presence: without sciatica Qualified Code(s): M54.5 - Low back pain Acute renal failure (ARF) Qualifiers: Acute renal failure type: unspecified Qualified Code(s): N17.9 - Acute kidney failure, unspecified - Discharge Information *PRESCRIPTION DRUG MONITORING PROGRAM REVIEWED*: Yes *COPY OF PRESCRIPTION DRUG MONITORING REPORT IN PATIENT EWA: No Prescriptions: tiZANidine [Zanaflex] 2 mg PO TID #21 tab Referrals: PCP,Unknown [Ordering Only Provider] - Forms: ED Department Discharge Sepsis Event Note - Evaluation Sepsis Screening Result: No Definite Risk - Focused Exam Vital Signs: Vital Signs Temp Pulse Resp BP Pulse Ox 07/22/19 16:21 99.0 F 77 19 138/51 L 90 L Date Exam was Performed: 07/22/19 Time Exam was Performed: 19:35 - My Orders Last 24 Hours: My Active Orders 07/22/19 16:50 Sodium Chloride 0.9% [Saline Flush] 10 ml FLUSH ASDIRECTED PRN Peripheral IV Insertion Adult [OM.PC] Routine 07/22/19 16:51 Peripheral IV Care [RC] . DIRECTED 07/22/19 16:53 Oxygen Therapy, ED [RC] ASDIRECTED Chest 1V Frontal [CR] Stat 07/22/19 18:45 Insert Singh Catheter [Insert Urinary Catheter] [OM.PC] ONETIME Urinary Catheter Assessment [RC] ASDIRECTED 07/22/19 18:59 Incentive Spirometry [RT Incentive Spirometry] [RC] Q1HWA 07/22/19 19:00 ROBERT Bandage [Elastic Wrap] [OM.PC] Routine - Assessment/Plan Last 24 Hours: My Active Orders 07/22/19 16:50 Sodium Chloride 0.9% [Saline Flush] 10 ml FLUSH ASDIRECTED PRN Peripheral IV Insertion Adult [OM.PC] Routine 07/22/19 16:51 Peripheral IV Care [RC] . DIRECTED 07/22/19 16:53 Oxygen Therapy, ED [RC] ASDIRECTED Chest 1V Frontal [CR] Stat 07/22/19 18:45 Insert Singh Catheter [Insert Urinary Catheter] [OM.PC] ONETIME Urinary Catheter Assessment [RC] ASDIRECTED 07/22/19 18:59 Incentive Spirometry [RT Incentive Spirometry] [RC] Q1HWA 07/22/19 19:00 ROBERT Bandage [Elastic Wrap] [OM.PC] Routine
--- NOTE | 2019-07-22 18:27 | US ---
Left lower extremity deep venous ultrasound: Duplex and color Doppler evaluation of the left common femoral, proximal greater saphenous, superficial femoral, popliteal and posterior tibial veins. Right common femoral vein was also evaluated. Findings: 2 adjacent complicated fluid collections are seen within the medial left calf most likely representing either a dissecting popliteal cyst or hematomas. These measure 10.2 cm x 1.8 cm and 11.8 cm x 2.5 cm Normal phasic flow, augmentation and compression is seen. Impression: 1. 2 fluid collections within the medial left calf as noted above. 2. No evidence of deep venous thrombosis within left lower extremity or within the right common femoral vein. Diagnostic code #3 Study was dictated in [place] Standard Time
--- NOTE | 2019-07-22 21:41 | PCM.HP.2 ---
H&P History of Present Illness - General Date of Service: 07/22/19 Admit Problem/Dx: Admission Diagnosis/Problem Admission Diagnosis/Problem Knee pain - History of Present Illness Initial Comments - Free Text/Narative: Patient is an 79-year-old female who presents to the ED via [facility] for the evaluation of left knee pain and lower back pain. 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 Patient states that she is not able to move her knee much at all, as it is very very painful. She does note low back pain as well, she states the knee pain hurts worse than the back pain. She notes that she is on a 50 mcg fentanyl patch but recently got up to 62.5. And she also takes Percocet on a regular basis. Ambulance was called, as she could not get out of bed today due to the pain. The patient denies any fever/ chills, chest pain/shortness of breath, nausea/vomiting/diarrhea, dysuria/ frequency/urgency, the patient further denies any sort of open sores other than one on her left heel which is being overseen by home health nursing and her clinic providers. She does state that she is on warfarin as well, and her last INR done Saturday was 1.9. There is one bruise noted on the anterior left knee, however the patient denies any trauma to the area. Left Knee Pain Score (Numeric/FACES): 3 - Related Data Allergies/Adverse Reactions: Allergies Allergy/AdvReac Type Severity Reaction Status Date / Time No Known Allergies Allergy Verified 07/22/19 22:19 Home Medications: Home Meds Aspirin [Ivan Chewable] 81 mg PO DAILY 01/02/16 [History] Pravastatin Sodium [Pravastatin (Pravachol)] 40 mg PO DAILY 01/02/16 [History] Ubidecarenone [COQ-10] 100 mg PO DAILY 01/02/16 [History] dilTIAZem HCl [Diltiazem 24Hr ER] 240 mg PO DAILY 01/02/16 [History] Gabapentin [Neurontin] 100 mg PO TID #90 capsule 09/01/18 [Rx] Vitamin B Complex [Super B-50 Complex] 1 tab PO DAILY 10/03/18 [History] Ascorbate Calcium [Vitamin C] 1,000 mg PO DAILY 01/11/19 [History] Metoprolol Succinate 50 mg PO DAILY 01/11/19 [History] Omeprazole 40 mg PO DAILY 01/11/19 [History] Sennosides/Docusate Sodium [Senna Plus Tablet] 1 each PO DAILY PRN 01/11/19 [ History] Warfarin Dosing [Coumadin Ask] 1 dose PO BEDTIME 01/11/19 [History] fentaNYL [Duragesic] 62.5 mcg TRDERM ASDIRECTED 01/11/19 [History] Acetaminophen [Acetaminophen 8 Hour] 650 mg PO 1400 07/22/19 [History] Acetaminophen/Diphenhydramine [Acetaminophen Pm Caplet] 500 mg PO BEDTIME [History] B2/Vits A,C,E/Lut/Zeaxanth/Min [Icaps] 1 tab PO DAILY 07/22/19 [History] Cholecalciferol (Vitamin D3) [Vitamin D3] 125 mcg PO DAILY 07/22/19 [History] Furosemide [Lasix] 40 mg PO BID 07/22/19 [History] Iron,Carbonyl/Ascorbic Acid [Iron 100-Vitamin C Tablet] 2 tab PO BID 07/22/19 [ History] LORazepam 0.5 mg PO DAILY PRN 07/22/19 [History] Levothyroxine [Synthroid] 100 mcg PO DAILY 07/22/19 [History] Magnesium Citrate 150 mg PO BID 07/22/19 [History] Multivitamin [Multivitamins] 2 tab PO DAILY 07/22/19 [History] [place]-3S/DHA/Epa/Fish Oil [[place]-3 Fish Oil 1,000 mg Sfgl] 2 cap PO DAILY [History] oxyCODONE HCl/Acetaminophen [Percocet 5-325 mg Tablet] 1 tab PO Q8H PRN [History] Losartan [Cozaar] 50 mg PO DAILY 07/28/19 [History] Past Medical History - Past Health History Medical/Surgical History: Denies Medical/Surgical History HEENT History: Reports: Impaired Vision Cardiovascular History: Reports: Blood Clots/VTE/DVT, High Cholesterol, Hypertension Respiratory History: Reports: PE, Sleep Apnea Genitourinary History: Reports: UTI, Recurrent USABILITY ENGINEER History: Reports: Musculoskeletal History: Reports: Back Pain, Chronic, Osteoarthritis Neurological History: Reports: Neuropathy, Peripheral Psychiatric History: Reports: Anxiety Endocrine/Metabolic History: Reports: Hypothyroidism, Obesity/BMI 30+ Hematologic History: Reports: B12 Deficiency - Infectious Disease History Infectious Disease History: Reports: Chicken Pox, Measles, Shingles - Past Surgical History HEENT Surgical History: Reports: Cataract Surgery Cardiovascular Surgical History: Reports: Vascular Surgery Other Cardiovascular Surgeries/Procedures: blood clot filter GI Surgical History: Reports: Cholecystectomy Musculoskeletal Surgical History: Reports: Other (See Below) Other Musculoskeletal Surgeries/Procedures:: L foot sx Social & Family History - Family History Family Medical History: Noncontributory - Tobacco Use Smoking Status *Q: Never Smoker Second Hand Smoke Exposure: No - Caffeine Use Caffeine Use: Reports: None - Recreational Drug Use Recreational Drug Use: No - Living Situation & Occupation Living situation: Reports: , Alone Occupation: Retired H&P Review of Systems - Review of Systems: Review Of Systems: See Below General: Denies: Fever, Chills, Malaise, Weakness, Fatigue, Night Sweats, Diaphoresis HEENT: Denies: Headaches, Hearing Changes, Rhinitis, Post Nasal Drip, Sinus Congestion, Sore Throat, Vertigo Pulmonary: Denies: Shortness of Breath, Wheezing, Pleuritic Chest Pain, Cough, Sputum Cardiovascular: Denies: Chest Pain, Palpitations, Dyspnea on Exertion, Orthopnea , PND, Edema, Lightheadedness, Syncope Gastrointestinal: Denies: Abdominal Pain, Anorexia, Black Stool, Bloody Stool, Constipation, Diarrhea, Difficulty Swallowing, Distension, Flatus, Nausea, Stool Incontinence, Vomiting Genitourinary: Denies: Dysuria, Frequency, Burning, Pain Musculoskeletal: Reports: Back Pain, Leg Pain, Joint Pain, Joint Swelling, Muscle Pain. Denies: Neck Pain, Shoulder Pain, Muscle Stiffness Skin: Denies: Cyanosis, Jaundice, Mottled, Pallor, Diaphoresis Psychiatric: Denies: Confusion, Depression, Mood Lability, Hallucinations ( Auditory) Neurological: Denies: Confusion, Dizziness Exam - Exam Exam: See Below - Vital Signs Vital Signs: Last Vital Signs Temp 99.0 F 07/22/19 16:21 Pulse 77 01/15/20 16:21 Resp 19 07/22/19 16:21 BP 138/51 L 07/22/19 16:21 Pulse Ox 84 L 07/22/19 19:43 Weight: 155.582 kg - Exam Quality Assessment: Supplemental Oxygen, Other (body habitus confounds physical exam) General: Alert, Oriented, Cooperative, Mild Distress HEENT: EOMI, Pupils Equal, Pupils Reactive Neck: Supple Lungs: Decreased Breath Sounds. No: Crackles, Rales, Rhonchi, Wheezing Cardiovascular: Regular Rate, Regular Rhythm. No: Systolic Murmur, Diastolic Murmur, Rubs, Gallop/S3, Gallop/S4 GI/Abdominal Exam: Distended. No: Guarding, Rigid, Rebound, Tender Extremities: Pedal Edema, Slow Capillary Refill, Joint Swelling, Leg Pain, Limited Range of Motion, Other (forced eversion BL feet) Skin: Warm, Dry - Patient Data Result Diagrams: 07/29/19 22:28 07/28/19 05:40 Sepsis Event Note - Evaluation Sepsis Screening Result: No Definite Risk - Focused Exam Vital Signs: Vital Signs Temp Pulse Resp BP Pulse Ox 07/22/19 19:43 84 L 07/22/19 16:21 99.0 F 77 19 138/51 L 90 L Date Exam was Performed: 07/31/19 Time Exam was Performed: 19:08 - Problem List (1) Hypoalbuminemia SNOMED Code(s): 041649753 ICD Code: E88.09 - OTH DISORDERS OF PLASMA-PROTEIN METABOLISM, NEC Status: Acute Current Visit: Yes (2) Vitamin D deficiency SNOMED Code(s): 51784051 ICD Code: E55.9 - VITAMIN D DEFICIENCY, UNSPECIFIED Status: Acute Current Visit: Yes (3) Hypertension SNOMED Code(s): 42334233 ICD Code: I10 - ESSENTIAL (PRIMARY) HYPERTENSION Status: Acute Current Visit: Yes (4) Dyslipidemia SNOMED Code(s): 460303591 ICD Code: E78.5 - HYPERLIPIDEMIA, UNSPECIFIED Status: Acute Current Visit : Yes (5) Hypothyroidism SNOMED Code(s): 52469571 ICD Code: E03.9 - HYPOTHYROIDISM, UNSPECIFIED Status: Acute Current Visit : Yes (6) Polypharmacy SNOMED Code(s): 479928777 ICD Code: Z79.899 - 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 TAPE EDGE MACHINE 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 (CURRENT) DRUG THERAPY Status: Acute Current Visit: Yes (7) Presence of IVC filter SNOMED Code(s): 340714611355055, 878949090454896 ICD Code: Z95.828 - PRESENCE OF OTHER VASCULAR IMPLANTS AND GRAFTS Status: Acute Current Visit: Yes (8) Acute hypoxemic respiratory failure SNOMED Code(s): 151372344 ICD Code: J96.01 - ACUTE RESPIRATORY FAILURE WITH HYPOXIA Status: Acute Current Visit: Yes (9) Acute renal failure (ARF) SNOMED Code(s): 69821626 ICD Code: N17.9 - ACUTE KIDNEY FAILURE, UNSPECIFIED Status: Acute Current Visit: Yes Qualifiers: Acute renal failure type: unspecified Qualified Code(s): N17.9 - Acute kidney failure, unspecified (10) Chronic kidney disease (CKD), stage III (moderate) SNOMED Code(s): 614978597 ICD Code: N18.3 - CHRONIC KIDNEY DISEASE, STAGE 3 (MODERATE) Status: Acute Current Visit: Yes (11) Chronic knee pain SNOMED Code(s): 08642815 ICD Code: M25.569 - PAIN IN UNSPECIFIED KNEE; G89.29 - OTHER CHRONIC PAIN Status: Acute Current Visit: Yes (12) Hyponatremia SNOMED Code(s): 17623049 ICD Code: E87.1 - HYPO-OSMOLALITY AND HYPONATREMIA Status: Acute Current Visit: Yes (13) Low back pain SNOMED Code(s): 694878027 ICD Code: M54.5 - LOW BACK PAIN Status: Acute Current Visit: Yes Qualifiers: Chronicity: acute Back pain laterality: bilateral Sciatica presence: without sciatica Qualified Code(s): M54.5 - Low back pain (14) Morbid obesity with BMI of 50.0-59.9, adult SNOMED Code(s): 910539344, 61735931591056 ICD Code: E66.01 - MORBID (SEVERE) OBESITY DUE TO EXCESS CALORIES; Z68.43 - BODY MASS INDEX (BMI) 50.0-59.9, ADULT Status: Acute Current Visit: No (15) Knee pain, left SNOMED Code(s): 76379963 ICD Code: M25.562 - PAIN IN LEFT KNEE Status: Acute Current Visit: Yes (16) Knee pain, acute SNOMED Code(s): 71896573, 074317479 ICD Code: M25.569 - PAIN IN UNSPECIFIED KNEE Status: Acute Current Visit : Yes (17) Microcytic anemia SNOMED Code(s): 744975498 ICD Code: D50.9 - IRON DEFICIENCY ANEMIA, UNSPECIFIED Status: Acute Current Visit: Yes (18) Bedbound SNOMED Code(s): 369627160 ICD Code: Z74.01 - BED CONFINEMENT STATUS Status: Acute Current Visit: Yes Problem List Initiated/Reviewed/Updated: Yes Assessment/Plan Comment:: Acute on chronic knee pain Chronic low back pain Chronic opioid user Came in with worsening knee pain According to patient she hit it on the side of the bed Unable to ambulate or stand on her own Chronic fentanyl patch, just increased dose PLAN - Continue home meds once available - Continue fentanyl patch Acute hypoxemic respiratory failure O2 sats on admission 90% on Ra and dropped to 84% Placed on NC PLAN - Continue O2 supplementation - RT assess and treat Hypertension BP on admission 138/51 Home meds, Losartan PLAN - Reconcile home meds once available - PRN hydralazine Previous DVT/ PE Previous GI bleed Presence of IVC filter Currently on warfarin IVC filter placed > 10 years ago Hb worse than in June PLAN - Monitor for bleeding - Repeat CBC in the AM Acute renal failure (ARF) Chronic kidney disease (CKD), stage III (moderate) Hyponatremia Microcytic anemia Likely 2/2 volume depletion Hb 06/2019 9.8, 8.2 today PLAN - Monitor urine output - Renally dosed medications - Avoid nephrotoxic medications - Monitor electrolytes and adjust as needed Dyslipidemia On Pravastatin PLAN - Continue home pravastatin Hypothyroidism No acute issues PLAN - Continue home med once doses are available Vitamin D deficiency On vitamin d supplementation PLAN - Vitamin D level Polypharmacy 25 prescription medications Multiple central acting ones PLAN - Reconcile and adjust prior to discharge Morbid obesity with BMI of 50.0-59.9, adult Bedbound Hypoalbuminemia Likely from chronic deconditioning PLAN - PT and OT consult PROPHYLAXIS DVT- Warfarin GI- not indicated CODE STATUS: DNR/DNI DISPOSITION: Patient will be admitted for pain control, evaluation by PT and OT for placement recommendations. Currently patient lives at home, granddaughter is animal care attendant. - Mortality Measure Prognosis:: Poor (chronic deconditioning and bed bound)
[2019-07-22] MEDS ORDERED: Morphine 2 MG/ML Syringe IVPUSH PRN (21:47)
[2019-07-22] MEDS ORDERED: Ondansetron 4 MG/2 ML SDV IVPUSH PRN (21:48)
[2019-07-22] MEDS ORDERED: LORazepam 0.5 MG Tab PO PRN (21:53)
[2019-07-22] MEDS ORDERED: Acetaminophen 325 MG Tab PO SCH (23:00)
[2019-07-22] MEDS: diphenhydrAMINE 50 MG Cap PO SCH (23:44)
[2019-07-23 06:38] LABS: HEMOGLOBIN A1C 4.8 % (4.50-6.20)
[2019-07-23] MEDS: Levothyroxine 100 MCG Tab PO SCH (06:47)
[2019-07-23] MEDS: Pantoprazole 40 MG Tab.CR PO SCH (06:47)
--- NOTE | 2019-07-23 06:54 | CR ---
Chest: Portable view of the chest was obtained. Comparison: Prior chest x-ray of 11/27/12. Heart is enlarged. Lungs are clear with no acute parenchymal change. Bony structures are unremarkable. Impression: 1. Cardiomegaly. 2. Nothing acute is otherwise seen on portable chest x-ray. Diagnostic code #2 This report was dictated in [place] Standard Time
[2019-07-23] MEDS ORDERED: Hydrochlorothiazide 25 MG Tab PO SCH (09:00)
[2019-07-23] MEDS ORDERED: Furosemide 40 MG Tab PO SCH (09:00)
[2019-07-23] MEDS ORDERED: Aspirin 81 MG Tab.Chew PO SCH (09:00)
[2019-07-23] MEDS ORDERED: MAGNESIUM CITRATE 150 MG PO SCH (09:00)
[2019-07-23] MEDS ORDERED: Losartan 100 MG Tab PO SCH (09:00)
[2019-07-23] MEDS: Gabapentin 100 MG Cap PO SCH ×3 (09:13→20:56)
[2019-07-23] MEDS: Metoprolol Succinate 50 MG Tab.ER PO SCH (09:13)
[2019-07-23] MEDS: Nystatin Topical Powder 15 GM Bottle TOP SCH ×4 (09:13→21:00)
[2019-07-23] MEDS: Diltiazem 240 MG Cap.ER PO SCH (09:13)
--- NOTE | 2019-07-23 09:13 | PCM.PN ---
- General Info Date of Service: 07/23/19 Admission Dx/Problem (Free Text): Admission Diagnosis/Problem Admission Diagnosis/Problem Knee pain Subjective Update: Patient continues to have left lower extremity pain. She states that it hurts both on the anterior and posterior left lower extremity. She has not had any IV morphine since yesterday in the emergency room and is tolerating the pain now on 1 Percocet every 6 hours. Tracy had bilateral feet fracture 2008 with provoked DVT and PE. IVC filter placed and started on warfarin. Only 1 DVT in the past. Hit area of tenderness a few days ago on a counter, but pain preceded the trauma. Functional Status: Denies: Pain Controlled - Review of Systems General: Reports: No Symptoms HEENT: Reports: No Symptoms Pulmonary: Reports: Cough (mild congestion) Cardiovascular: Reports: No Symptoms Gastrointestinal: Reports: No Symptoms Musculoskeletal: Reports: Leg Pain - Patient Data Vitals - Most Recent: Last Vital Signs Temp 99.3 F 07/23/19 08:30 Pulse 83 07/23/19 08:30 Resp 16 07/23/19 08:30 BP 136/45 L 07/23/19 08:30 Pulse Ox 95 07/23/19 08:30 Weight - Most Recent: 336 lb I&O - Last 24 Hours: Intake & Output 07/22/19 07/23/19 07/23/19 22:59 06:59 14:59 Intake Total 150 Output Total 100 Balance 50 Lab Results Last 24 Hours: Laboratory Results - last 24 hr 07/22/19 07/22/19 07/22/19 Range/Units 17:18 17:18 17:18 WBC 8.02 (3.98-10.04) K/mm3 RBC 2.97 L (3.98-5.22) M/mm3 Hgb 8.2 L (11.2-15.7) gm/dl Hct 28.6 L (34.1-44.9) % MCV 96.3 H (79.4-94.8) fl MCH 27.6 (25.6-32.2) pg MCHC 28.7 L (32.2-35.5) g/dl RDW Std Deviation 60.0 H (36.4-46.3) fL Plt Count 283 (182-369) K/mm3 MPV 8.3 L (9.4-12.3) fl Neut % (Auto) (34.0-71.1) % Lymph % (Auto) (19.3-51.7) % [place] % (Auto) (4.7-12.5) % Eos % (Auto) (0.7-5.8) Baso % (Auto) (0.1-1.2) % Neut # (Auto) (1.56-6.13) K/mm3 Lymph # (Auto) (1.18-3.74) K/mm3 [place] # (Auto) (0.24-0.36) K/mm3 Eos # (Auto) (0.04-0.36) K/mm3 Baso # (Auto) (0.01-0.08) K/mm3 Neutrophils % (Manual) 76 H (40-60) % Band Neutrophils % 1 (0-10) % Lymphocytes % (Manual) 9 L (20-40) % Atypical Lymphs % 0 % Monocytes % (Manual) 14 H (2-10) % Eosinophils % (Manual) 0 L (0.7-5.8) % Basophils % (Manual) 0 L (0.1-1.2) Manual Slide Review Platelet Estimate Adequate Polychromasia Few Hypochromasia 1+ slight Anisocytosis 2+ moderate Macrocytosis 2+ moderate Ovalocytes 1+ slight RBC Morph Comment Not Reportable PT 22.4 H (9.7-12.0) SECONDS INR 2.15 APTT 49 H (22-31) SECONDS Sodium 139 (136-145) mEq/L Potassium 4.6 (3.5-5.1) mEq/L Chloride 100 (98-107) mEq/L Carbon Dioxide 31 (21-32) mEq/L Anion Gap 12.6 (5-15) BUN 41 H (7-18) mg/dL Creatinine 2.2 H (0.55-1.02) mg/dL Est Cr Clr Drug Dosing 21.69 mL/min Estimated GFR (MDRD) 21 (>60) mL/min BUN/Creatinine Ratio 18.6 H (14-18) Glucose 122 H (83-115) mg/dL Hemoglobin A1c (4.50-6.20) % Calcium 9.7 (8.5-10.1) mg/dL Phosphorus (2.6-4.7) mg/dL Magnesium (1.8-2.4) mg/dl Total Bilirubin 0.5 (0.2-1.0) mg/dL AST 11 L (15-37) U/L ALT 12 L (14-59) U/L Alkaline Phosphatase 71 (46-116) U/L NT-Pro-B Natriuret Pep (0-450) pg/mL Total Protein 7.7 (6.4-8.2) g/dl Albumin 2.9 L (3.4-5.0) g/dl Globulin 4.8 gm/dL Albumin/Globulin Ratio 0.6 L (1-2) Urine Color (Yellow) Urine Appearance (Clear) Urine pH (5.0-8.0) Ur Specific [place] (1.005-1.030) Urine Protein (Negative) Urine Glucose (UA) (Negative) Urine Ketones (Negative) Urine Occult Blood (Negative) Urine Nitrite (Negative) Urine Bilirubin (Negative) Urine Urobilinogen (0.2-1.0) Ur Leukocyte Esterase (Negative) Urine RBC (0-5) /hpf Urine WBC (0-5) /hpf Ur Squamous Epith Cells (0-5) /hpf Urine Bacteria (FEW) /hpf Hyaline Casts (0-5) /lpf Urine Mucus (FEW) /hpf Blood Type Gel Antibody Screen 07/22/19 07/22/19 07/22/19 Range/Units 17:18 17:18 18:37 WBC (3.98-10.04) K/mm3 RBC (3.98-5.22) M/mm3 Hgb (11.2-15.7) gm/dl Hct (34.1-44.9) % MCV (79.4-94.8) fl MCH (25.6-32.2) pg MCHC (32.2-35.5) g/dl RDW Std Deviation (36.4-46.3) fL Plt Count (182-369) K/mm3 MPV (9.4-12.3) fl Neut % (Auto) (34.0-71.1) % Lymph % (Auto) (19.3-51.7) % [place] % (Auto) (4.7-12.5) % Eos % (Auto) (0.7-5.8) Baso % (Auto) (0.1-1.2) % Neut # (Auto) (1.56-6.13) K/mm3 Lymph # (Auto) (1.18-3.74) K/mm3 [place] # (Auto) (0.24-0.36) K/mm3 Eos # (Auto) (0.04-0.36) K/mm3 Baso # (Auto) (0.01-0.08) K/mm3 Neutrophils % (Manual) (40-60) % Band Neutrophils % (0-10) % Lymphocytes % (Manual) (20-40) % Atypical Lymphs % % Monocytes % (Manual) (2-10) % Eosinophils % (Manual) (0.7-5.8) % Basophils % (Manual) (0.1-1.2) Manual Slide Review Platelet Estimate Polychromasia Hypochromasia Anisocytosis Macrocytosis Ovalocytes RBC Morph Comment PT (9.7-12.0) SECONDS INR APTT (22-31) SECONDS Sodium (136-145) mEq/L Potassium (3.5-5.1) mEq/L Chloride (98-107) mEq/L Carbon Dioxide (21-32) mEq/L Anion Gap (5-15) BUN (7-18) mg/dL Creatinine (0.55-1.02) mg/dL Est Cr Clr Drug Dosing mL/min Estimated GFR (MDRD) (>60) mL/min BUN/Creatinine Ratio (14-18) Glucose (83-115) mg/dL Hemoglobin A1c (4.50-6.20) % Calcium (8.5-10.1) mg/dL Phosphorus (2.6-4.7) mg/dL Magnesium (1.8-2.4) mg/dl Total Bilirubin (0.2-1.0) mg/dL AST (15-37) U/L ALT (14-59) U/L Alkaline Phosphatase (46-116) U/L NT-Pro-B Natriuret Pep 3040 H (0-450) pg/mL Total Protein (6.4-8.2) g/dl Albumin (3.4-5.0) g/dl Globulin gm/dL Albumin/Globulin Ratio (1-2) Urine Color Yellow (Yellow) Urine Appearance Clear (Clear) Urine pH 5.5 (5.0-8.0) Ur Specific [place] 1.010 (1.005-1.030) Urine Protein Negative (Negative) Urine Glucose (UA) Negative (Negative) Urine Ketones Negative (Negative) Urine Occult Blood Negative (Negative) Urine Nitrite Negative (Negative) Urine Bilirubin Negative (Negative) Urine Urobilinogen 0.2 (0.2-1.0) Ur Leukocyte Esterase Negative (Negative) Urine RBC 0-5 (0-5) /hpf Urine WBC 0-5 (0-5) /hpf Ur Squamous Epith Cells 0-5 (0-5) /hpf Urine Bacteria Few (FEW) /hpf Hyaline Casts 10-20 H (0-5) /lpf Urine Mucus Moderate H (FEW) /hpf Blood Type O POSITIVE Gel Antibody Screen Negative 07/23/19 07/23/19 07/23/19 Range/Units 05:19 05:19 05:19 WBC 8.22 (3.98-10.04) K/mm3 RBC 2.70 L (3.98-5.22) M/mm3 Hgb 7.5 L (11.2-15.7) gm/dl Hct 26.0 L (34.1-44.9) % MCV 96.3 H (79.4-94.8) fl MCH 27.8 (25.6-32.2) pg MCHC 28.8 L (32.2-35.5) g/dl RDW Std Deviation 59.5 H (36.4-46.3) fL Plt Count 281 (182-369) K/mm3 MPV 8.9 L (9.4-12.3) fl Neut % (Auto) 65.3 (34.0-71.1) % Lymph % (Auto) 15.1 L (19.3-51.7) % [place] % (Auto) 17.9 H (4.7-12.5) % Eos % (Auto) 1.1 (0.7-5.8) Baso % (Auto) 0.4 (0.1-1.2) % Neut # (Auto) 5.37 (1.56-6.13) K/mm3 Lymph # (Auto) 1.24 (1.18-3.74) K/mm3 [place] # (Auto) 1.47 H (0.24-0.36) K/mm3 Eos # (Auto) 0.09 (0.04-0.36) K/mm3 Baso # (Auto) 0.03 (0.01-0.08) K/mm3 Neutrophils % (Manual) (40-60) % Band Neutrophils % (0-10) % Lymphocytes % (Manual) (20-40) % Atypical Lymphs % % Monocytes % (Manual) (2-10) % Eosinophils % (Manual) (0.7-5.8) % Basophils % (Manual) (0.1-1.2) Manual Slide Review Abnormal smear Platelet Estimate Polychromasia Hypochromasia Anisocytosis Macrocytosis Ovalocytes RBC Morph Comment PT (9.7-12.0) SECONDS INR APTT (22-31) SECONDS Sodium 138 (136-145) mEq/L Potassium 4.8 (3.5-5.1) mEq/L Chloride 101 (98-107) mEq/L Carbon Dioxide 29 (21-32) mEq/L Anion Gap 12.8 (5-15) BUN 43 H (7-18) mg/dL Creatinine 2.4 H (0.55-1.02) mg/dL Est Cr Clr Drug Dosing 19.88 mL/min Estimated GFR (MDRD) 19 (>60) mL/min BUN/Creatinine Ratio 17.9 (14-18) Glucose 109 (83-115) mg/dL Hemoglobin A1c 4.80 (4.50-6.20) % Calcium 9.6 (8.5-10.1) mg/dL Phosphorus 4.3 (2.6-4.7) mg/dL Magnesium 2.7 H (1.8-2.4) mg/dl Total Bilirubin (0.2-1.0) mg/dL AST (15-37) U/L ALT (14-59) U/L Alkaline Phosphatase (46-116) U/L NT-Pro-B Natriuret Pep (0-450) pg/mL Total Protein (6.4-8.2) g/dl Albumin (3.4-5.0) g/dl Globulin gm/dL Albumin/Globulin Ratio (1-2) Urine Color (Yellow) Urine Appearance (Clear) Urine pH (5.0-8.0) Ur Specific [place] (1.005-1.030) Urine Protein (Negative) Urine Glucose (UA) (Negative) Urine Ketones (Negative) Urine Occult Blood (Negative) Urine Nitrite (Negative) Urine Bilirubin (Negative) Urine Urobilinogen (0.2-1.0) Ur Leukocyte Esterase (Negative) Urine RBC (0-5) /hpf Urine WBC (0-5) /hpf Ur Squamous Epith Cells (0-5) /hpf Urine Bacteria (FEW) /hpf Hyaline Casts (0-5) /lpf Urine Mucus (FEW) /hpf Blood Type Gel Antibody Screen 07/23/19 Range/Units 05:19 WBC (3.98-10.04) K/mm3 RBC (3.98-5.22) M/mm3 Hgb (11.2-15.7) gm/dl Hct (34.1-44.9) % MCV (79.4-94.8) fl MCH (25.6-32.2) pg MCHC (32.2-35.5) g/dl RDW Std Deviation (36.4-46.3) fL Plt Count (182-369) K/mm3 MPV (9.4-12.3) fl Neut % (Auto) (34.0-71.1) % Lymph % (Auto) (19.3-51.7) % [place] % (Auto) (4.7-12.5) % Eos % (Auto) (0.7-5.8) Baso % (Auto) (0.1-1.2) % Neut # (Auto) (1.56-6.13) K/mm3 Lymph # (Auto) (1.18-3.74) K/mm3 [place] # (Auto) (0.24-0.36) K/mm3 Eos # (Auto) (0.04-0.36) K/mm3 Baso # (Auto) (0.01-0.08) K/mm3 Neutrophils % (Manual) (40-60) % Band Neutrophils % (0-10) % Lymphocytes % (Manual) (20-40) % Atypical Lymphs % % Monocytes % (Manual) (2-10) % Eosinophils % (Manual) (0.7-5.8) % Basophils % (Manual) (0.1-1.2) Manual Slide Review Platelet Estimate Polychromasia Hypochromasia Anisocytosis Macrocytosis Ovalocytes RBC Morph Comment PT 21.4 H (9.7-12.0) SECONDS INR 2.04 APTT (22-31) SECONDS Sodium (136-145) mEq/L Potassium (3.5-5.1) mEq/L Chloride (98-107) mEq/L Carbon Dioxide (21-32) mEq/L Anion Gap (5-15) BUN (7-18) mg/dL Creatinine (0.55-1.02) mg/dL Est Cr Clr Drug Dosing mL/min Estimated GFR (MDRD) (>60) mL/min BUN/Creatinine Ratio (14-18) Glucose (83-115) mg/dL Hemoglobin A1c (4.50-6.20) % Calcium (8.5-10.1) mg/dL Phosphorus (2.6-4.7) mg/dL Magnesium (1.8-2.4) mg/dl Total Bilirubin (0.2-1.0) mg/dL AST (15-37) U/L ALT (14-59) U/L Alkaline Phosphatase (46-116) U/L NT-Pro-B Natriuret Pep (0-450) pg/mL Total Protein (6.4-8.2) g/dl Albumin (3.4-5.0) g/dl Globulin gm/dL Albumin/Globulin Ratio (1-2) Urine Color (Yellow) Urine Appearance (Clear) Urine pH (5.0-8.0) Ur Specific [place] (1.005-1.030) Urine Protein (Negative) Urine Glucose (UA) (Negative) Urine Ketones (Negative) Urine Occult Blood (Negative) Urine Nitrite (Negative) Urine Bilirubin (Negative) Urine Urobilinogen (0.2-1.0) Ur Leukocyte Esterase (Negative) Urine RBC (0-5) /hpf Urine WBC (0-5) /hpf Ur Squamous Epith Cells (0-5) /hpf Urine Bacteria (FEW) /hpf Hyaline Casts (0-5) /lpf Urine Mucus (FEW) /hpf Blood Type Gel Antibody Screen Med Orders - Current: Current Medications Acetaminophen (Tylenol) 650 mg PO DAILY@1400 [place] Acetaminophen (Tylenol) 975 mg PO BEDTIME [facility] Diltiazem HCl (Dilacor Xr) 240 mg PO DAILY [facility] Diphenhydramine HCl (Benadryl) 50 mg PO BEDTIME [place] Last Admin: 07/22/19 23:44 Dose: Not Given Fentanyl (Duragesic) 62.5 mcg TRDERM ASDIRECTED [facility] Furosemide (Lasix) 40 mg PO DAILY [facility] Gabapentin (Neurontin) 100 mg PO TID [facility] Levothyroxine Sodium (Synthroid) 100 mcg PO ACBREAKFAST [facility] Last Admin: 07/23/19 06:47 Dose: 100 mcg Lorazepam (Ativan) 0.5 mg PO DAILY PRN PRN Reason: Anxiety Metoprolol Succinate (Toprol Xl) 50 mg PO DAILY [facility] Morphine Sulfate (Morphine) 2 mg IVPUSH Q4HR PRN PRN Reason: Pain (severe 7-10) Nystatin (Nystop) 0 gm TOP QID [facility] Ondansetron HCl (Zofran) 4 mg IVPUSH Q6HR PRN PRN Reason: Nausea Oxycodone/Acetaminophen (Percocet 325-5 Mg) 1 tab PO Q6H PRN PRN Reason: Low back pain Pantoprazole Sodium (Protonix) 40 mg PO ACBREAKFAST [facility] Last Admin: 07/23/19 06:47 Dose: 40 mg Senna/Docusate Sodium (Senna Plus) 1 tab PO DAILY PRN PRN Reason: Constipation Sodium Chloride (Saline Flush) 10 ml FLUSH ASDIRECTED PRN PRN Reason: Keep Vein Open Last Admin: 07/22/19 17:15 Dose: 10 ml Discontinued Medications Acetaminophen (Tylenol) 2 mg PO BEDTIME [facility] Aspirin (Aspirin) 81 mg PO DAILY [facility] Hydrochlorothiazide (Hydrochlorothiazide) 25 mg PO DAILY [facility] Hydromorphone HCl (Dilaudid) 1 mg IVPUSH ONETIME ONE Stop: 07/22/19 16:53 Last Admin: 07/22/19 17:14 Dose: 1 mg Losartan Potassium (Cozaar) 100 mg PO DAILY [facility] Non-Formulary Medication (Magnesium Citrate [Magnesium Citrate]) 150 mg PO BID [facility] Warfarin Sodium (Pharmacy To Dose - Warfarin) 1 dose .XX ASDIRECTED PRN PRN Reason: RX TO DOSE WARFARIN - Exam Quality Assessment: Supplemental Oxygen General: Alert, Oriented HEENT: Pupils Equal Neck: Supple Lungs: Clear to Auscultation, Normal Respiratory Effort Cardiovascular: Regular Rate, Regular Rhythm GI/Abdominal Exam: Normal Bowel Sounds, Soft, Non-Tender, No Distention Extremities: Leg Pain (left leg swelling, mild ecchymosis. Tenderness just distal to the knee both anteriorly and posteriorly.) Sepsis Event Note - Evaluation Sepsis Screening Result: No Definite Risk - Focused Exam Vital Signs: Vital Signs Temp Pulse Resp BP Pulse Ox 07/23/19 08:30 99.3 F 83 16 136/45 L 95 07/23/19 04:02 99.0 F 80 16 128/42 L 94 L 07/22/19 21:18 78 96 07/22/19 21:17 79 16 131/55 L 94 L Date Exam was Performed: 07/23/19 Time Exam was Performed: 14:28 - Problem List Review Problem List Initiated/Reviewed/Updated: Yes - My Orders Last 24 Hours: My Active Orders 07/23/19 Echo Comp wo Cont [US] Routine 07/23/19 12:00 HEMOGLOBIN/HEMATOCRIT,HH [HEME] Routine - Plan Plan:: Assessment * Left lower leg pain with 2 fluid collections within the medial left calf possible hematoma versus dissecting popliteal cyst measuring 10.2 cm x 1.8 cm and 11.8 cm x 2.5 cm. * Hemoglobin on admission was 8.2 and repeat this morning was 7.5. Repeat at noon was 8.2 again. * On warfarin for history of DVT with INR of 2.0 * PT and OT consulted * Acute on chronic renal insufficiency * Creatinine 2.2 on admission now 2.4. * No history of NSAID use * On losartan for hypertension * On hydrochlorothiazide and furosemide * Possible prerenal kidney disease * Anemia * Hemoglobin 8.2 on admission * On iron supplementation at home * Hypoxemia requiring 2 L nasal cannula O2 * Not on home O2 * Cardiomegaly on chest x-ray otherwise nothing acute * Non-smoker * Cardiomegaly on chest x-ray * History of hypertension * Anticoagulation secondary to 1 episode of provoked DVT with PE * IVC filter placed in 2008 * Started on warfarin in 2009 * Hypertension/hypothyroidism/hyperlipidemia/neuropathy Plan * DC warfarin. It appears patient has been on warfarin for 1 provoked DVT. She now has a potential bleed which would contradict warfarin at least in the short-term. * DC hydrochlorothiazide * Change Lasix to 40 mg daily * Follow BMP, and CBC daily * Echocardiogram * Reconcile home medication * Pain management * PT, OT likely will need [facility] facility placement * VTE prophylaxis with SCDs on the right leg. Chemoprophylaxis is contraindicated secondary to possible ongoing bleed with anemia. * CODE STATUS: DNR/DNI * Length of stay likely 3 to 4 days. * Condition: Stable/good
[2019-07-23] MEDS: Acetaminophen 325 MG Tab PO SCH ×2 (13:17→20:57)
[2019-07-23] MEDS: Acetaminophen/oxyCODONE 325-5 MG Tab PO PRN (13:18)
[2019-07-23] MEDS: diphenhydrAMINE 50 MG Cap PO SCH (20:57)
[2019-07-23] MEDS: oxyCODONE 5 MG Tab PO PRN (20:58)
[2019-07-24] MEDS: Pantoprazole 40 MG Tab.CR PO SCH (05:52)
[2019-07-24] MEDS: Levothyroxine 100 MCG Tab PO SCH (05:53)
[2019-07-24] MEDS: Acetaminophen/oxyCODONE 325-5 MG Tab PO PRN (05:53)
[2019-07-24] MEDS ORDERED: Lactated Ringers 1,000 ML IV SCH (08:30)
--- NOTE | 2019-07-24 08:39 | PCM.PN ---
- General Info Date of Service: 07/24/19 Admission Dx/Problem (Free Text): Admission Diagnosis/Problem Admission Diagnosis/Problem Knee pain Subjective Update: Patient continues to feel well. She does complain of left leg pain and it has not improved. Functional Status: Denies: Pain Controlled - Review of Systems General: Reports: No Symptoms HEENT: Reports: No Symptoms Pulmonary: Reports: No Symptoms Cardiovascular: Reports: No Symptoms Gastrointestinal: Reports: No Symptoms - Patient Data Vitals - Most Recent: Last Vital Signs Temp 98.1 F 07/23/19 20:55 Pulse 72 07/24/19 05:51 Resp 18 07/24/19 05:51 BP 131/44 L 07/24/19 05:51 Pulse Ox 97 07/24/19 05:51 Weight - Most Recent: 335 lb 14.4 oz I&O - Last 24 Hours: Intake & Output 07/23/19 07/24/19 07/24/19 22:59 06:59 14:59 Intake Total 1250 400 Balance 1250 400 Lab Results Last 24 Hours: Laboratory Results - last 24 hr 07/23/19 07/24/19 07/24/19 Range/Units 12:15 05:28 05:28 WBC 7.00 (3.98-10.04) K/mm3 RBC 2.63 L (3.98-5.22) M/mm3 Hgb 8.2 L 7.4 L (11.2-15.7) gm/dl Hct 28.3 L 25.8 L (34.1-44.9) % MCV 98.1 H (79.4-94.8) fl MCH 28.1 (25.6-32.2) pg MCHC 28.7 L (32.2-35.5) g/dl RDW Std Deviation 60.1 H (36.4-46.3) fL Plt Count 267 (182-369) K/mm3 MPV 9.1 L (9.4-12.3) fl Neut % (Auto) 58.5 (34.0-71.1) % Lymph % (Auto) 20.1 (19.3-51.7) % [place] % (Auto) 14.9 H (4.7-12.5) % Eos % (Auto) 6.1 H (0.7-5.8) Baso % (Auto) 0.3 (0.1-1.2) % Neut # (Auto) 4.09 (1.56-6.13) K/mm3 Lymph # (Auto) 1.41 (1.18-3.74) K/mm3 [place] # (Auto) 1.04 H (0.24-0.36) K/mm3 Eos # (Auto) 0.43 H (0.04-0.36) K/mm3 Baso # (Auto) 0.02 (0.01-0.08) K/mm3 Sodium 135 L (136-145) mEq/L Potassium 4.5 (3.5-5.1) mEq/L Chloride 99 (98-107) mEq/L Carbon Dioxide 29 (21-32) mEq/L Anion Gap 11.5 (5-15) BUN 51 H (7-18) mg/dL Creatinine 2.5 H (0.55-1.02) mg/dL Est Cr Clr Drug Dosing 19.08 mL/min Estimated GFR (MDRD) 18 (>60) mL/min BUN/Creatinine Ratio 20.4 H (14-18) Glucose 99 (83-115) mg/dL Calcium 9.6 (8.5-10.1) mg/dL Magnesium 2.7 H (1.8-2.4) mg/dl Med Orders - Current: Current Medications Acetaminophen (Tylenol) 650 mg PO DAILY@1400 [facility] Last Admin: 07/23/19 13:17 Dose: 650 mg Acetaminophen (Tylenol) 975 mg PO BEDTIME [facility] Last Admin: 07/23/19 20:57 Dose: 975 mg Albuterol/Ipratropium (Duoneb 3.0-0.5 Mg/3 Ml) 3 ml NEB QID [facility] Diltiazem HCl (Dilacor Xr) 240 mg PO DAILY [facility] Last Admin: 07/23/19 09:13 Dose: 240 mg Diphenhydramine HCl (Benadryl) 50 mg PO BEDTIME [facility] Last Admin: 07/23/19 20:57 Dose: 50 mg Fentanyl (Duragesic) 12 mcg TRDERM Q72H [facility] Fentanyl (Duragesic) 50 mcg TRDERM Q72H [facility] Gabapentin (Neurontin) 100 mg PO TID [facility] Last Admin: 07/23/19 20:56 Dose: 100 mg Lactated Ringer's (Ringers, Lactated) 1,000 mls @ 100 mls/hr IV ASDIRECTED [facility] Stop: 07/24/19 18:29 Levothyroxine Sodium (Synthroid) 100 mcg PO ACBREAKFAST [facility] Last Admin: 07/24/19 05:53 Dose: 100 mcg Lorazepam (Ativan) 0.5 mg PO DAILY PRN PRN Reason: Anxiety Metoprolol Succinate (Toprol Xl) 50 mg PO DAILY [facility] Last Admin: 07/23/19 09:13 Dose: 50 mg Miscellaneous Information (Remove Patch) 0 ea TRDERM Q72H [facility] Morphine Sulfate (Morphine) 2 mg IVPUSH Q4HR PRN PRN Reason: Pain (severe 7-10) Nystatin (Nystop) 0 gm TOP QID [facility] Last Admin: 07/23/19 21:00 Dose: 1 applic Ondansetron HCl (Zofran) 4 mg IVPUSH Q6HR PRN PRN Reason: Nausea Oxycodone HCl (Oxycodone) 5 mg PO Q4H PRN PRN Reason: Pain (moderate 4-6) Last Admin: 07/23/19 20:58 Dose: 5 mg Oxycodone/Acetaminophen (Percocet 325-5 Mg) 1 tab PO Q6H PRN PRN Reason: Low back pain Last Admin: 07/24/19 05:53 Dose: 1 tab Pantoprazole Sodium (Protonix) 40 mg PO ACBREAKFAST [facility] Last Admin: 07/24/19 05:52 Dose: 40 mg Senna/Docusate Sodium (Senna Plus) 1 tab PO DAILY PRN PRN Reason: Constipation Sodium Chloride (Saline Flush) 10 ml FLUSH ASDIRECTED PRN PRN Reason: Keep Vein Open Last Admin: 07/22/19 17:15 Dose: 10 ml Discontinued Medications Acetaminophen (Tylenol) 2 mg PO BEDTIME [facility] Aspirin (Aspirin) 81 mg PO DAILY [facility] Furosemide (Lasix) 40 mg PO DAILY [facility] Last Admin: 07/23/19 09:12 Dose: 40 mg Hydrochlorothiazide (Hydrochlorothiazide) 25 mg PO DAILY [facility] Hydromorphone HCl (Dilaudid) 1 mg IVPUSH ONETIME ONE Stop: 07/22/19 16:53 Last Admin: 07/22/19 17:14 Dose: 1 mg Losartan Potassium (Cozaar) 100 mg PO DAILY [facility] Non-Formulary Medication (Magnesium Citrate [Magnesium Citrate]) 150 mg PO BID [facility] Warfarin Sodium (Pharmacy To Dose - Warfarin) 1 dose .XX ASDIRECTED PRN PRN Reason: RX TO DOSE WARFARIN - Exam Quality Assessment: Supplemental Oxygen General: Alert, Oriented HEENT: Pupils Equal Neck: Supple Lungs: Normal Respiratory Effort, Crackles (Bibasilar), Wheezing (Bibasilar) Cardiovascular: Regular Rate, Regular Rhythm GI/Abdominal Exam: Normal Bowel Sounds, Soft, Non-Tender, No Organomegaly, No Distention, No Abnormal Bruit, No Mass, Pelvis Stable Extremities: Leg Pain (left lower extremity) Skin: Warm Psy/Mental Status: Alert, Normal Affect, Normal Mood Sepsis Event Note - Evaluation Sepsis Screening Result: No Definite Risk - Focused Exam Vital Signs: Vital Signs Temp Pulse Resp BP Pulse Ox 07/24/19 05:51 72 18 131/44 L 97 07/23/19 20:55 98.1 F 74 20 120/97 H 97 Date Exam was Performed: 07/24/19 Time Exam was Performed: 09:04 - Problem List Review Problem List Initiated/Reviewed/Updated: Yes - My Orders Last 24 Hours: My Active Orders 07/23/19 15:04 oxyCODONE 5 mg PO Q4H PRN 07/24/19 05:28 CBC WITH AUTO DIFF [HEME] AM 07/24/19 08:15 Kidney Ultrasound [Retroperitoneal Comp] [US] Routine 07/24/19 08:28 RT Aerosol Therapy [RC] ASDIRECTED RT Incentive Spirometry [RC] ASDIRECTED 07/24/19 08:30 Lactated Ringers @ 100 MLS/HR(1000ml Bag) Lactated Ringers [Ringers, Lactated] 1 ,000 ml IV ASDIRECTED 07/24/19 09:00 Albuterol/Ipratropium [DuoNeb 3.0-0.5 MG/3 ML] 3 ml NEB QID 07/25/19 05:11 BASIC METABOLIC PANEL,BMP [CHEM] AM CBC WITH AUTO DIFF [HEME] AM MAGNESIUM [CHEM] AM 07/26/19 05:11 BASIC METABOLIC PANEL,BMP [CHEM] AM CBC WITH AUTO DIFF [HEME] AM MAGNESIUM [CHEM] AM 07/27/19 05:11 BASIC METABOLIC PANEL,BMP [CHEM] AM CBC WITH AUTO DIFF [HEME] AM MAGNESIUM [CHEM] AM 07/28/19 05:11 BASIC METABOLIC PANEL,BMP [CHEM] AM CBC WITH AUTO DIFF [HEME] AM MAGNESIUM [CHEM] AM - Plan Plan:: Assessment * Left lower leg pain with 2 fluid collections within the medial left calf possible hematoma versus dissecting popliteal cyst measuring 10.2 cm x 1.8 cm and 11.8 cm x 2.5 cm. * Hemoglobin on admission was 8.2 and repeat this morning was 7.5. Repeat at noon was 8.2 again. * On warfarin for history of DVT with INR of 2.0 * PT and OT consulted * Acute on chronic renal insufficiency * Creatinine 2.2 on admission now 2.5. * Baseline creatinine 1.6 * No history of NSAID use * On losartan for hypertension * On hydrochlorothiazide and furosemide * Possible prerenal kidney disease (BUN/Creatinine >20) * Anemia * Hemoglobin 8.2 on admission -->7.5 -->8.2 -->7.4 * On iron supplementation at home * May be worsening renal function * Hypoxemia requiring 2 L nasal cannula O2 * Not on home O2 * Cardiomegaly on chest x-ray otherwise nothing acute * Non-smoker * Mild wheeze and crackles * Likely due to atelectasis, not volume overload * Cardiomegaly on chest x-ray * History of hypertension * Echo pending * Anticoagulation secondary to 1 episode of provoked DVT with PE * IVC filter placed in 2008 * Started on warfarin in 2009 * Hypertension/hypothyroidism/hyperlipidemia/neuropathy Plan * DC warfarin. It appears patient has been on warfarin for 1 provoked DVT. She now has a potential bleed which would contradict warfarin at least in the short-term. * DC hydrochlorothiazide and Lasix * Give 1 unit PRBC * Give 1 unit LR * Follow BMP, and CBC daily * Ultrasound of kidneys * Continue pain management * RT Consult * DuoNeb QID with EzPAP * PT, OT likely will need snf facility placement * VTE prophylaxis with SCDs on the right leg. Chemoprophylaxis is contraindicated secondary to possible ongoing bleed with anemia. * CODE STATUS: DNR/DNI * Length of stay likely 3 to 4 days. * Condition: Stable/good
[2019-07-24] MEDS ORDERED: Sodium Chloride 0.9% 250 ML IV SCH (09:15)
[2019-07-24] MEDS: Albuterol/Ipratropium 3.0-0.5 MG/3 ML Neb Soln NEB SCH ×4 (09:38→20:53)
[2019-07-24] MEDS: Gabapentin 100 MG Cap PO SCH ×3 (10:11→21:27)
[2019-07-24] MEDS: Diltiazem 240 MG Cap.ER PO SCH (10:11)
[2019-07-24] MEDS: Metoprolol Succinate 50 MG Tab.ER PO SCH (10:11)
[2019-07-24] MEDS: Nystatin Topical Powder 15 GM Bottle TOP SCH ×4 (10:12→21:27)
[2019-07-24] MEDS: Acetaminophen/HYDROcodone 325-5 MG Tab PO PRN ×3 (10:56→21:32)
--- NOTE | 2019-07-24 12:09 | US ---
Renal ultrasound: Multiple real-time images of the kidneys were obtained. Comparison: No prior abdominal imaging is available. Findings: Two cysts noted inferiorly within the right kidney measuring 5.2 cm and 3.4 cm. Cysts appear to be simple. Left kidney appears within normal limits. Resistivity indices are within normal limits. Right kidney length is 11.0 cm and left kidney length is 14.5 cm. Prevoid bladder volume is 423 mL, patient could not void this amount. Impression: 1. Two cysts within the inferior right kidney. 2. Bladder volume of 423 mL, patient could not void this amount. 3. Renal ultrasound is otherwise unremarkable. Diagnostic code #2 This report was dictated in [place] Standard Time MTDD
[2019-07-24] MEDS: Acetaminophen 325 MG Tab PO SCH ×2 (15:30→21:34)
[2019-07-24] MEDS: oxyCODONE 5 MG Tab PO PRN (18:00)
[2019-07-24] MEDS: diphenhydrAMINE 50 MG Cap PO SCH (21:34)
[2019-07-25] MEDS: Pantoprazole 40 MG Tab.CR PO SCH (06:49)
[2019-07-25] MEDS: Levothyroxine 100 MCG Tab PO SCH (06:50)
[2019-07-25] MEDS: Albuterol/Ipratropium 3.0-0.5 MG/3 ML Neb Soln NEB SCH ×4 (08:11→20:10)
[2019-07-25] MEDS: Diltiazem 240 MG Cap.ER PO SCH (08:46)
[2019-07-25] MEDS: Metoprolol Succinate 50 MG Tab.ER PO SCH (08:47)
[2019-07-25] MEDS: Gabapentin 100 MG Cap PO SCH ×3 (08:47→21:10)
[2019-07-25] MEDS: fentaNYL 50 MCG/HR Transdermal Patch TRDERM SCH (08:49)
[2019-07-25] MEDS: fentaNYL 12 MCG/HR Transdermal Patch TRDERM SCH (08:50)
[2019-07-25] MEDS: Nystatin Topical Powder 15 GM Bottle TOP SCH ×4 (08:56→21:29)
--- NOTE | 2019-07-25 11:06 | PCM.PN ---
- General Info Date of Service: 07/25/19 Admission Dx/Problem (Free Text): Admission Diagnosis/Problem Admission Diagnosis/Problem Knee pain Subjective Update: Patient received 1 unit packed red blood cells yesterday. She also received 1 L of IV fluids. Her hemoglobin only went up from 7.4-7.6. Patient states that she did have an upper GI bleed in September of last year. She has been on iron supplementation and has had dark stools because of this. She has not had any iron since Saturday, 6 days ago, but last night she did have a large bowel movement that was black. She is on oral Protonix. She continues to have significant pain in that left lower extremity. It is not improved since admission. It is not growing in size. Patient also states that she has a history of sleep apnea. She does not wear CPAP. Functional Status: Denies: Pain Controlled - Review of Systems General: Reports: No Symptoms HEENT: Reports: No Symptoms Pulmonary: Reports: No Symptoms Cardiovascular: Reports: No Symptoms Gastrointestinal: Reports: Melena. Denies: Abdominal Pain, Diarrhea Neurological: Reports: No Symptoms Psychiatric: Reports: No Symptoms - Patient Data Vitals - Most Recent: Last Vital Signs Temp 98.2 F 07/25/19 03:34 Pulse 80 07/25/19 08:47 Resp 12 07/25/19 03:34 BP 146/51 H 07/25/19 08:47 Pulse Ox 93 L 07/25/19 08:12 Weight - Most Recent: 336 lb 14.4 oz I&O - Last 24 Hours: Intake & Output 07/24/19 07/25/19 07/25/19 22:59 06:59 14:59 Intake Total 2070 1400 360 Output Total 200 625 Balance 1870 775 360 Lab Results Last 24 Hours: Laboratory Results - last 24 hr 07/22/19 07/25/19 07/25/19 Range/Units 17:18 05:30 05:30 WBC 7.98 (3.98-10.04) K/mm3 RBC 2.71 L (3.98-5.22) M/mm3 Hgb 7.6 L (11.2-15.7) gm/dl Hct 26.2 L (34.1-44.9) % MCV 96.7 H (79.4-94.8) fl MCH 28.0 (25.6-32.2) pg MCHC 29.0 L (32.2-35.5) g/dl RDW Std Deviation 59.9 H (36.4-46.3) fL Plt Count 284 (182-369) K/mm3 MPV 9.0 L (9.4-12.3) fl Neut % (Auto) 69.2 (34.0-71.1) % Lymph % (Auto) 13.5 L (19.3-51.7) % [place] % (Auto) 13.4 H (4.7-12.5) % Eos % (Auto) 3.5 (0.7-5.8) Baso % (Auto) 0.3 (0.1-1.2) % Neut # (Auto) 5.52 (1.56-6.13) K/mm3 Lymph # (Auto) 1.08 L (1.18-3.74) K/mm3 [place] # (Auto) 1.07 H (0.24-0.36) K/mm3 Eos # (Auto) 0.28 (0.04-0.36) K/mm3 Baso # (Auto) 0.02 (0.01-0.08) K/mm3 Manual Slide Review Abnormal smear Sodium 134 L (136-145) mEq/L Potassium 4.7 (3.5-5.1) mEq/L Chloride 99 (98-107) mEq/L Carbon Dioxide 28 (21-32) mEq/L Anion Gap 11.7 (5-15) BUN 50 H (7-18) mg/dL Creatinine 2.3 H (0.55-1.02) mg/dL Est Cr Clr Drug Dosing 20.74 mL/min Estimated GFR (MDRD) 20 (>60) mL/min BUN/Creatinine Ratio 21.7 H (14-18) Glucose 117 H (83-115) mg/dL Calcium 9.6 (8.5-10.1) mg/dL Magnesium 2.6 H (1.8-2.4) mg/dl Crossmatch See Detail Med Orders - Current: Current Medications Acetaminophen (Tylenol) 650 mg PO DAILY@1400 [facility] Last Admin: 07/24/19 15:30 Dose: 650 mg Acetaminophen (Tylenol) 975 mg PO BEDTIME [facility] Last Admin: 01/17/20 21:34 Dose: Not Given Hydrocodone Bitart/Acetaminophen ([place] 325-5 Mg) 1 tab PO Q4H PRN PRN Reason: Pain Last Admin: 07/24/19 21:32 Dose: 1 tab Albuterol/Ipratropium (Duoneb 3.0-0.5 Mg/3 Ml) 3 ml NEB QID [facility] Last Admin: 07/25/19 08:11 Dose: 3 ml Diltiazem HCl (Dilacor Xr) 240 mg PO DAILY [facility] Last Admin: 07/25/19 08:46 Dose: 240 mg Diphenhydramine HCl (Benadryl) 50 mg PO BEDTIME [facility] Last Admin: 07/24/19 21:34 Dose: Not Given Fentanyl (Duragesic) 12 mcg TRDERM Q72H [facility] Last Admin: 07/25/19 08:50 Dose: 12 mcg Fentanyl (Duragesic) 50 mcg TRDERM Q72H [facility] Last Admin: 07/25/19 08:49 Dose: 50 mcg Gabapentin (Neurontin) 100 mg PO TID [facility] Last Admin: 07/25/19 08:47 Dose: 100 mg Levothyroxine Sodium (Synthroid) 100 mcg PO ACBREAKFAST [facility] Last Admin: 07/25/19 06:50 Dose: 100 mcg Lorazepam (Ativan) 0.5 mg PO DAILY PRN PRN Reason: Anxiety Metoprolol Succinate (Toprol Xl) 50 mg PO DAILY [facility] Last Admin: 07/25/19 08:47 Dose: 50 mg Miscellaneous Information (Remove Patch) 0 ea TRDERM Q72H [facility] Last Admin: 07/25/19 08:57 Dose: 1 ea Morphine Sulfate (Morphine) 2 mg IVPUSH Q4HR PRN PRN Reason: Pain (severe 7-10) Nystatin (Nystop) 0 gm TOP QID [facility] Last Admin: 07/25/19 08:56 Dose: 1 applic Ondansetron HCl (Zofran) 4 mg IVPUSH Q6HR PRN PRN Reason: Nausea Oxycodone HCl (Oxycodone) 5 mg PO Q4H PRN PRN Reason: Pain (moderate 4-6) Last Admin: 07/24/19 18:00 Dose: 5 mg Pantoprazole Sodium (Protonix Iv) 40 mg IVPUSH DAILY [facility] Senna/Docusate Sodium (Senna Plus) 1 tab PO DAILY PRN PRN Reason: Constipation Sodium Chloride (Saline Flush) 10 ml FLUSH ASDIRECTED PRN PRN Reason: Keep Vein Open Last Admin: 07/22/19 17:15 Dose: 10 ml Discontinued Medications Acetaminophen (Tylenol) 2 mg PO BEDTIME [facility] Aspirin (Aspirin) 81 mg PO DAILY [facility] Furosemide (Lasix) 40 mg PO DAILY [facility] Last Admin: 07/23/19 09:12 Dose: 40 mg Hydrochlorothiazide (Hydrochlorothiazide) 25 mg PO DAILY [facility] Hydromorphone HCl (Dilaudid) 1 mg IVPUSH ONETIME ONE Stop: 07/22/19 16:53 Last Admin: 07/22/19 17:14 Dose: 1 mg Lactated Ringer's (Ringers, Lactated) 1,000 mls @ 100 mls/hr IV ASDIRECTED [facility] Stop: 07/24/19 18:29 Last Admin: 07/24/19 13:56 Dose: 100 mls/hr Sodium Chloride (Normal Saline) 250 mls @ 100 mls/hr IV ASDIRECTED [facility] Last Admin: 07/24/19 10:12 Dose: 100 mls/hr Losartan Potassium (Cozaar) 100 mg PO DAILY [facility] Non-Formulary Medication (Magnesium Citrate [Magnesium Citrate]) 150 mg PO BID [facility] Oxycodone/Acetaminophen (Percocet 325-5 Mg) 1 tab PO Q6H PRN PRN Reason: Low back pain Last Admin: 07/24/19 05:53 Dose: 1 tab Pantoprazole Sodium (Protonix) 40 mg PO ACBREAKFAST [facility] Last Admin: 07/25/19 06:49 Dose: 40 mg Warfarin Sodium (Pharmacy To Dose - Warfarin) 1 dose .XX ASDIRECTED PRN PRN Reason: RX TO DOSE WARFARIN - Exam Quality Assessment: Supplemental Oxygen General: Alert, Oriented HEENT: Pupils Equal Neck: Supple Lungs: Clear to Auscultation, Normal Respiratory Effort Cardiovascular: Regular Rate, Regular Rhythm GI/Abdominal Exam: Normal Bowel Sounds, Soft, Non-Tender, No Organomegaly, No Distention, No Abnormal Bruit, No Mass Extremities: Leg Pain (swelling and tenderness of the left lower extremity.) Skin: Warm, Dry, Intact Neurological: No New Focal Deficit Psy/Mental Status: Alert, Normal Affect, Normal Mood Sepsis Event Note - Evaluation Sepsis Screening Result: No Definite Risk - Focused Exam Vital Signs: Vital Signs Temp Pulse Resp BP Pulse Ox Pulse Ox 07/25/19 08:47 80 146/51 H 07/25/19 08:12 93 L 07/25/19 03:34 98.2 F 77 12 127/72 91 L Date Exam was Performed: 07/25/19 Time Exam was Performed: 10:58 - Problem List Review Problem List Initiated/Reviewed/Updated: Yes - My Orders Last 24 Hours: My Active Orders 07/24/19 15:42 SCD [Sequential Compression Device] [OM.PC] Routine 07/24/19 15:43 Antiembolic Devices [RC] PER UNIT ROUTINE 07/24/19 16:02 Up With Assistance [RC] ASDIRECTED Up ad Maryjane [RC] ASDIRECTED 07/25/19 08:42 OCCULT BLOOD DIAGNOSTIC [OP] Routine OCCULT BLOOD SCREEN [OP] Routine 07/25/19 09:39 H.PYLORI ANTIGEN, STOOL [OP] Routine 07/25/19 09:42 Transfuse PRBC [Transfuse Red Blood Cells] [COMM] Routine 07/25/19 10:38 Lower Leg wo Cont Lt [CT] Routine 07/25/19 10:39 INR,PT,PROTHROMBIN TIME [COAG] Routine 07/26/19 05:11 BASIC METABOLIC PANEL,BMP [CHEM] AM CBC WITH AUTO DIFF [HEME] AM MAGNESIUM [CHEM] AM 07/26/19 06:00 Pantoprazole [ProTONIX IV] 40 mg IVPUSH DAILY 07/27/19 05:11 BASIC METABOLIC PANEL,BMP [CHEM] AM CBC WITH AUTO DIFF [HEME] AM MAGNESIUM [CHEM] AM 07/28/19 05:11 BASIC METABOLIC PANEL,BMP [CHEM] AM CBC WITH AUTO DIFF [HEME] AM MAGNESIUM [CHEM] AM - Plan Plan:: Assessment * Left lower leg pain with 2 fluid collections within the medial left calf possible hematoma versus dissecting popliteal cyst measuring 10.2 cm x 1.8 cm and 11.8 cm x 2.5 cm. * Hemoglobin on admission was 8.2 and repeat this morning was 7.5. Repeat at noon was 8.2 again. * On warfarin for history of DVT with INR of 2.0 * PT and OT consulted * Acute on chronic renal insufficiency * Creatinine 2.2 on admission now 2.3. * Baseline creatinine 1.6 * No history of NSAID use * On losartan for hypertension * On hydrochlorothiazide and furosemide * Possible prerenal kidney disease (BUN/Creatinine >20) * Renal ultrasound impression: 1. 2 cyst within the inferior right kidney. 2. Bladder volume of 423 mL, patient could not void this amount. 3. Renal ultrasound is otherwise unremarkable. * Anemia * Hemoglobin 8.2 on admission -->7.5 -->8.2 -->7.4--> 1 L packed red blood cells --> 7.6 * On iron supplementation at home * Black stools: concern for active upper GI bleed. elevated BUN. Poor response to 1 unit PRBC. Hx of upper GI bleed in September of 2018. On warfarin. * Hypoxemia -improving * Not on home O2 * Cardiomegaly on chest x-ray otherwise nothing acute * Non-smoker * Decreased wheeze and crackles * Likely due to atelectasis, not volume overload * Cardiomegaly on chest x-ray * History of hypertension * Echocardiogram summary: 1. Left ventricular ejection fraction, by visual estimation, is 55 to 60%. 2. Mild concentric left ventricular hypertrophy. 3. Mildly increased left ventricular posterior wall thickness. 4. Pseudo-normal (grade 2) pattern of LV diastolic filling. 5. The left ventricular internal cavity size is mild to moderately increased. 6. Mildly dilated left atrium. 7. Anterior and apical epicardial fat pad. 8. Trace mitral valve regurgitation. 9. No regional wall motion abnormalities. * Anticoagulation secondary to 1 episode of provoked DVT with PE * IVC filter placed in 2008 * Started on warfarin in 2009 * Stopped warfarin on admission * Hypertension/hypothyroidism/hyperlipidemia/neuropathy/sleep apnea not on CPAP Plan * Re-check INR * CT left lower extremity to check for worsening hematoma and aging of hematoma. * Give another 1 unit PRBC * Encourage po fluids. * Follow BMP, and CBC daily * Check post void residuals * Continue pain management * Stools for H. pylori antigen * Protonix 40 mg IV every 12 hours * Continue DuoNeb QID with EzPAP * VTE prophylaxis with SCDs on the right leg. Chemoprophylaxis is contraindicated secondary to possible ongoing bleed with anemia. * CODE STATUS: DNR/DNI * Length of stay greater than 96 hours secondary to poor resolution of left lower leg pain, renal insufficiency, hypoxemia, and blood loss * Condition: Stable/good
--- NOTE | 2019-07-25 11:55 | CT ---
CT left lower extremity Technique: Multiple axial sections were obtained from above the left hip inferiorly through the left lower extremity to the foot. Intravenous contrast was not utilized. Findings: 2 separate abnormalities are seen adjacent to each other within the posterior soleus muscle. These abnormalities show mixed density and are felt compatible with muscle hematomas. Lateral abnormality extends slightly more superiorly than the medial abnormality. Craniocaudal measurement of the lateral abnormality is approximate 10.5 cm with AP dimension of 3.3 cm and transverse dimension of 5.0 cm. More medial abnormality is more elongated in appearance with craniocaudal measurement of 19.1 cm, AP dimension of 4.1 cm and transverse measurement of 2.1 cm. Degenerative change is noted throughout the knee. Degenerative change is also noted within the foot and ankle. No acute bony abnormality is appreciated. Joint effusion is seen within the knee. Impression: 1. 2 separate findings within the soleus muscle having the appearance of hematomas. Measurements as noted above. Please correlate if these hematomas are due to muscle tear or represent change from direct trauma. 2. Joint effusion is noted within the knee. 3. Degenerative change within the left knee and within the left ankle and foot. Diagnostic code #3 This report was dictated in [place] Standard Time
[2019-07-25] MEDS ORDERED: Phytonadione ORAL 2.5mg/2.5ml Soln Simple Syrup U/D PO ONE (13:02)
[2019-07-25] MEDS ORDERED: Sodium Chloride 0.9% 250 ML IV SCH (14:00)
[2019-07-25] MEDS: Acetaminophen 325 MG Tab PO SCH ×2 (14:19→21:30)
[2019-07-25] MEDS: Acetaminophen/HYDROcodone 325-5 MG Tab PO PRN (21:11)
[2019-07-25] MEDS: diphenhydrAMINE 50 MG Cap PO SCH (21:29)
[2019-07-26] MEDS: Pantoprazole 40 MG Vial IVPUSH SCH ×2 (05:47→08:11)
[2019-07-26] MEDS: Levothyroxine 100 MCG Tab PO SCH (05:49)
[2019-07-26] MEDS: Albuterol/Ipratropium 3.0-0.5 MG/3 ML Neb Soln NEB SCH ×4 (08:07→20:20)
[2019-07-26] MEDS: Metoprolol Succinate 50 MG Tab.ER PO SCH (08:27)
[2019-07-26] MEDS: Diltiazem 240 MG Cap.ER PO SCH (08:27)
[2019-07-26] MEDS: Gabapentin 100 MG Cap PO SCH ×3 (08:27→20:05)
[2019-07-26] MEDS: Nystatin Topical Powder 15 GM Bottle TOP SCH ×4 (08:27→20:05)
[2019-07-26] MEDS: Acetaminophen/HYDROcodone 325-5 MG Tab PO PRN ×2 (11:12→20:06)
--- NOTE | 2019-07-26 13:05 | PCM.PN ---
- General Info Date of Service: 07/26/19 Admission Dx/Problem (Free Text): Admission Diagnosis/Problem Admission Diagnosis/Problem Knee pain Subjective Update: Patient is doing well. She didn't have a BM yesterday, so we could not get a stool for occult blood. She does state that her left leg pain has improved. She has no numbness, paresthesias, or change in sensation. She denies any change in motor control. - Patient Data Vitals - Most Recent: Last Vital Signs Temp 98.8 F 07/26/19 05:45 Pulse 83 07/26/19 08:27 Resp 14 07/26/19 05:45 BP 135/50 L 07/26/19 08:27 Pulse Ox 95 07/26/19 12:05 Weight - Most Recent: 335 lb 6.4 oz I&O - Last 24 Hours: Intake & Output 07/25/19 07/26/19 07/26/19 22:59 06:59 14:59 Intake Total 2340 400 300 Output Total 600 1600 Balance 1740 -1200 300 Lab Results Last 24 Hours: Laboratory Results - last 24 hr 07/22/19 07/26/19 07/26/19 Range/Units 17:18 05:30 05:30 WBC 7.21 (3.98-10.04) K/mm3 RBC 2.86 L (3.98-5.22) M/mm3 Hgb 7.9 L (11.2-15.7) gm/dl Hct 27.1 L (34.1-44.9) % MCV 94.8 (79.4-94.8) fl MCH 27.6 (25.6-32.2) pg MCHC 29.2 L (32.2-35.5) g/dl RDW Std Deviation 59.9 H (36.4-46.3) fL Plt Count 316 (182-369) K/mm3 MPV 8.9 L (9.4-12.3) fl Neut % (Auto) 63.8 (34.0-71.1) % Lymph % (Auto) 15.8 L (19.3-51.7) % [place] % (Auto) 14.0 H (4.7-12.5) % Eos % (Auto) 5.5 (0.7-5.8) Baso % (Auto) 0.6 (0.1-1.2) % Neut # (Auto) 4.60 (1.56-6.13) K/mm3 Lymph # (Auto) 1.14 L (1.18-3.74) K/mm3 [place] # (Auto) 1.01 H (0.24-0.36) K/mm3 Eos # (Auto) 0.40 H (0.04-0.36) K/mm3 Baso # (Auto) 0.04 (0.01-0.08) K/mm3 Manual Slide Review Abnormal smear PT (9.7-12.0) SECONDS INR Sodium 133 L (136-145) mEq/L Potassium 4.6 (3.5-5.1) mEq/L Chloride 98 (98-107) mEq/L Carbon Dioxide 28 (21-32) mEq/L Anion Gap 11.6 (5-15) BUN 41 H (7-18) mg/dL Creatinine 1.9 H (0.55-1.02) mg/dL Est Cr Clr Drug Dosing 25.11 mL/min Estimated GFR (MDRD) 25 (>60) mL/min BUN/Creatinine Ratio 21.6 H (14-18) Glucose 116 H (83-115) mg/dL Calcium 9.7 (8.5-10.1) mg/dL Magnesium 2.3 (1.8-2.4) mg/dl Blood Type O POSITIVE Gel Antibody Screen Negative Crossmatch See Detail 07/26/19 Range/Units 05:30 WBC (3.98-10.04) K/mm3 RBC (3.98-5.22) M/mm3 Hgb (11.2-15.7) gm/dl Hct (34.1-44.9) % MCV (79.4-94.8) fl MCH (25.6-32.2) pg MCHC (32.2-35.5) g/dl RDW Std Deviation (36.4-46.3) fL Plt Count (182-369) K/mm3 MPV (9.4-12.3) fl Neut % (Auto) (34.0-71.1) % Lymph % (Auto) (19.3-51.7) % [place] % (Auto) (4.7-12.5) % Eos % (Auto) (0.7-5.8) Baso % (Auto) (0.1-1.2) % Neut # (Auto) (1.56-6.13) K/mm3 Lymph # (Auto) (1.18-3.74) K/mm3 [place] # (Auto) (0.24-0.36) K/mm3 Eos # (Auto) (0.04-0.36) K/mm3 Baso # (Auto) (0.01-0.08) K/mm3 Manual Slide Review PT 13.3 H (9.7-12.0) SECONDS INR 1.23 Sodium (136-145) mEq/L Potassium (3.5-5.1) mEq/L Chloride (98-107) mEq/L Carbon Dioxide (21-32) mEq/L Anion Gap (5-15) BUN (7-18) mg/dL Creatinine (0.55-1.02) mg/dL Est Cr Clr Drug Dosing mL/min Estimated GFR (MDRD) (>60) mL/min BUN/Creatinine Ratio (14-18) Glucose (83-115) mg/dL Calcium (8.5-10.1) mg/dL Magnesium (1.8-2.4) mg/dl Blood Type Gel Antibody Screen Crossmatch Med Orders - Current: Current Medications Acetaminophen (Tylenol) 650 mg PO DAILY@1400 [facility] Last Admin: 07/25/19 14:19 Dose: 650 mg Acetaminophen (Tylenol) 975 mg PO BEDTIME [facility] Last Admin: 07/25/19 21:30 Dose: Not Given Hydrocodone Bitart/Acetaminophen ([place] 325-5 Mg) 1 tab PO Q4H PRN PRN Reason: Pain Last Admin: 07/26/19 11:12 Dose: 1 tab Albuterol/Ipratropium (Duoneb 3.0-0.5 Mg/3 Ml) 3 ml NEB QID [facility] Last Admin: 07/26/19 12:05 Dose: 3 ml Diltiazem HCl (Dilacor Xr) 240 mg PO DAILY [facility] Last Admin: 07/26/19 08:27 Dose: 240 mg Diphenhydramine HCl (Benadryl) 50 mg PO BEDTIME [facility] Last Admin: 07/25/19 21:29 Dose: Not Given Fentanyl (Duragesic) 12 mcg TRDERM Q72H [facility] Last Admin: 07/25/19 08:50 Dose: 12 mcg Fentanyl (Duragesic) 50 mcg TRDERM Q72H [facility] Last Admin: 07/25/19 08:49 Dose: 50 mcg Gabapentin (Neurontin) 100 mg PO TID [facility] Last Admin: 07/26/19 08:27 Dose: 100 mg Levothyroxine Sodium (Synthroid) 100 mcg PO ACBREAKFAST [facility] Last Admin: 07/26/19 05:49 Dose: 100 mcg Lorazepam (Ativan) 0.5 mg PO DAILY PRN PRN Reason: Anxiety Metoprolol Succinate (Toprol Xl) 50 mg PO DAILY [facility] Last Admin: 07/26/19 08:27 Dose: 50 mg Miscellaneous Information (Remove Patch) 0 ea TRDERM Q72H [facility] Last Admin: 07/25/19 08:57 Dose: 1 ea Morphine Sulfate (Morphine) 2 mg IVPUSH Q4HR PRN PRN Reason: Pain (severe 7-10) Last Admin: 07/25/19 12:37 Dose: 2 mg Nystatin (Nystop) 0 gm TOP QID [facility] Last Admin: 07/26/19 08:27 Dose: 1 applic Ondansetron HCl (Zofran) 4 mg IVPUSH Q6HR PRN PRN Reason: Nausea Oxycodone HCl (Oxycodone) 5 mg PO Q4H PRN PRN Reason: Pain (moderate 4-6) Last Admin: 07/24/19 18:00 Dose: 5 mg Pantoprazole Sodium (Protonix Iv) 40 mg IVPUSH DAILY [facility] Last Admin: 07/26/19 08:11 Dose: Not Given Senna/Docusate Sodium (Senna Plus) 1 tab PO DAILY PRN PRN Reason: Constipation Sodium Chloride (Saline Flush) 10 ml FLUSH ASDIRECTED PRN PRN Reason: Keep Vein Open Last Admin: 07/22/19 17:15 Dose: 10 ml Discontinued Medications Acetaminophen (Tylenol) 2 mg PO BEDTIME [facility] Aspirin (Aspirin) 81 mg PO DAILY [facility] Furosemide (Lasix) 40 mg PO DAILY [facility] Last Admin: 07/23/19 09:12 Dose: 40 mg Hydrochlorothiazide (Hydrochlorothiazide) 25 mg PO DAILY [facility] Hydromorphone HCl (Dilaudid) 1 mg IVPUSH ONETIME ONE Stop: 07/22/19 16:53 Last Admin: 07/22/19 17:14 Dose: 1 mg Lactated Ringer's (Ringers, Lactated) 1,000 mls @ 100 mls/hr IV ASDIRECTED [facility] Stop: 07/24/19 18:29 Last Admin: 07/24/19 13:56 Dose: 100 mls/hr Sodium Chloride (Normal Saline) 250 mls @ 100 mls/hr IV ASDIRECTED [facility] Last Admin: 07/24/19 10:12 Dose: 100 mls/hr Sodium Chloride (Normal Saline) 250 mls @ 100 mls/hr IV ASDIRECTED [facility] Last Admin: 07/25/19 14:28 Dose: 100 mls/hr Ferric Sodium Gluconate Complex 250 mg/ Sodium Chloride 120 mls @ 50 mls/hr IV ONETIME ONE Stop: 07/26/19 10:16 Last Admin: 07/26/19 12:08 Dose: Not Given Ferric Sodium Gluconate Complex 250 mg/ Sodium Chloride 120 mls @ 50 mls/hr IV ONETIME ONE Stop: 07/26/19 11:23 Last Admin: 07/26/19 09:12 Dose: 50 mls/hr Losartan Potassium (Cozaar) 100 mg PO DAILY [facility] Non-Formulary Medication (Magnesium Citrate [Magnesium Citrate]) 150 mg PO BID [facility] Oxycodone/Acetaminophen (Percocet 325-5 Mg) 1 tab PO Q6H PRN PRN Reason: Low back pain Last Admin: 07/24/19 05:53 Dose: 1 tab Pantoprazole Sodium (Protonix) 40 mg PO ACBREAKFAST [facility] Last Admin: 07/25/19 06:49 Dose: 40 mg Phytonadione (Aquamephyton) 2.5 mg PO ONETIME ONE Stop: 07/25/19 13:03 Last Admin: 07/25/19 14:20 Dose: 2.5 mg Warfarin Sodium (Pharmacy To Dose - Warfarin) 1 dose .XX ASDIRECTED PRN PRN Reason: RX TO DOSE WARFARIN - Exam Quality Assessment: Supplemental Oxygen, Urine Catheter General: Alert, Oriented HEENT: Pupils Equal, Mucous Membr. Moist/[place] Neck: Supple Lungs: Normal Respiratory Effort, Wheezing GI/Abdominal Exam: Normal Bowel Sounds, Soft, Non-Tender, No Distention Extremities: Leg Pain (Left. No increased pain with passive stretch of the calf. Normal sensation to light touch.) Skin: Warm, Dry, Intact Neurological: No New Focal Deficit Psy/Mental Status: Alert, Normal Affect, Normal Mood Sepsis Event Note - Evaluation Sepsis Screening Result: No Definite Risk - Focused Exam Vital Signs: Vital Signs Temp Pulse Resp BP Pulse Ox Pulse Ox 07/26/19 12:05 95 07/26/19 08:27 83 135/50 L 07/26/19 08:07 95 07/26/19 05:45 98.8 F 80 14 133/60 94 L Date Exam was Performed: 07/26/19 Time Exam was Performed: 12:52 - Problem List Review Problem List Initiated/Reviewed/Updated: Yes - My Orders Last 24 Hours: My Active Orders 07/25/19 21:45 Insert Singh Catheter [Insert Urinary Catheter] [OM.PC] Q24H 07/25/19 23:17 Urinary Catheter Assessment [RC] 04,10,16,22 07/26/19 06:00 Pantoprazole [ProTONIX IV] 40 mg IVPUSH DAILY 07/27/19 05:11 BASIC METABOLIC PANEL,BMP [CHEM] AM CBC WITH AUTO DIFF [HEME] AM MAGNESIUM [CHEM] AM 07/28/19 05:11 BASIC METABOLIC PANEL,BMP [CHEM] AM CBC WITH AUTO DIFF [HEME] AM MAGNESIUM [CHEM] AM - Plan Plan:: Assessment * Left lower leg pain with 2 fluid collections within the medial left calf possible hematoma versus dissecting popliteal cyst measuring 10.2 cm x 1.8 cm and 11.8 cm x 2.5 cm. * Hemoglobin on admission was 8.2 and repeat this morning was 7.5. Repeat at noon was 8.2 again. * On warfarin for history of DVT with INR of 2.0. INR this morning is 1.23 * PT and OT consulted CT of the left lower extremity impression: 1. 2 separate findings within the soleus muscle having the appearance of hematomas. Craniocaudal measurement of the lateral abnormality is approximately 10.5 cm with AP dimension of 3.3 cm in transverse dimension of 5.0 cm. More medial abnormality is more elongated in appearance with craniocaudal measurement of 19.1 cm, AP dimension of 4.1 cm and a transverse measurement of 2.1 cm. 2. Joint effusion is noted within the knee. 3. Degenerative change within the left knee and within the left ankle and foot. * Acute on chronic renal insufficiency -improving * Creatinine 2.2 on admission now 1.9. * Baseline creatinine 1.6 * No history of NSAID use * On losartan for hypertension at home * On hydrochlorothiazide and furosemide at home * Possible prerenal kidney disease (BUN/Creatinine >20) Renal ultrasound impression: 1. 2 cyst within the inferior right kidney. 2. Bladder volume of 423 mL, patient could not void this amount. 3. Renal ultrasound is otherwise unremarkable. * Anemia -iron deficiency * Hemoglobin 8.2 on admission -->7.5 -->8.2 -->7.4--> 1 unit PRBC --> 7.6 --> 1 unit PRBC -->7.9 * On iron supplementation at home * Black stools, but on iron supplements. No BM yesterday decreases concern for active upper GI bleed. * Hypoxemia -improving * Currently on 1 L NC * Not on home O2 * Cardiomegaly on chest x-ray otherwise nothing acute * Non-smoker * Decreased wheeze and crackles * Likely due to atelectasis, not volume overload * Cardiomegaly on chest x-ray * History of hypertension Echocardiogram summary: 1. Left ventricular ejection fraction, by visual estimation, is 55 to 60%. 2. Mild concentric left ventricular hypertrophy. 3. Mildly increased left ventricular posterior wall thickness. 4. Pseudo-normal (grade 2) pattern of LV diastolic filling. 5. The left ventricular internal cavity size is mild to moderately increased. 6. Mildly dilated left atrium. 7. Anterior and apical epicardial fat pad. 8. Trace mitral valve regurgitation. 9. No regional wall motion abnormalities. * Anticoagulation secondary to 1 episode of provoked DVT with PE * IVC filter placed in 2008 * Started on warfarin in 2009 * Stopped warfarin on admission * Urinary retention * Post void residuals yesterday were over 700 * Singh catheter was placed * Hypertension/hypothyroidism/hyperlipidemia/neuropathy/sleep apnea not on CPAP Plan * IV iron * Encourage po fluids. * Follow BMP, and CBC daily * Check post void residuals * Continue pain management * Stools for H. pylori antigen * Protonix 40 mg IV every 12 hours * Continue DuoNeb QID with EzPAP * Encouraged to get out of bed and be as active as possible considering her lower extremity difficulties. * VTE prophylaxis with SCDs on the right leg. Chemoprophylaxis is contraindicated secondary to possible ongoing bleed with anemia. * CODE STATUS: DNR/DNI * Length of stay greater than 96 hours secondary to poor resolution of left lower leg pain, renal insufficiency, hypoxemia, and blood loss * Condition: Stable/good
[2019-07-26] MEDS: Acetaminophen 325 MG Tab PO SCH ×2 (14:12→20:05)
[2019-07-26] MEDS: diphenhydrAMINE 50 MG Cap PO SCH (20:04)
[2019-07-27] MEDS: Acetaminophen/HYDROcodone 325-5 MG Tab PO PRN ×2 (03:23→21:47)
[2019-07-27] MEDS: Levothyroxine 100 MCG Tab PO SCH (07:59)
--- NOTE | 2019-07-27 08:04 | PCM.PN ---
- General Info Date of Service: 07/27/19 Admission Dx/Problem (Free Text): Admission Diagnosis/Problem Admission Diagnosis/Problem Knee pain Subjective Update: Yessica is doing well. She her leg pain has improved. Hemoglobin has been stable. She is only on 1 L nasal cannula. - Review of Systems General: Reports: No Symptoms HEENT: Reports: No Symptoms Pulmonary: Reports: No Symptoms Cardiovascular: Reports: No Symptoms Gastrointestinal: Reports: No Symptoms Musculoskeletal: Reports: Leg Pain (Left leg) - Patient Data Vitals - Most Recent: Last Vital Signs Temp 99.0 F 07/27/19 03:04 Pulse 80 07/27/19 03:21 Resp 12 07/27/19 03:04 BP 148/50 H 07/27/19 03:04 Pulse Ox 92 L 07/27/19 03:21 Weight - Most Recent: 337 lb 3.2 oz I&O - Last 24 Hours: Intake & Output 07/26/19 07/27/19 07/27/19 22:59 06:59 14:59 Intake Total 1740 800 Output Total 1600 1800 Balance 140 -1000 Lab Results Last 24 Hours: Laboratory Results - last 24 hr 07/26/19 07/27/19 07/27/19 Range/Units 05:30 06:20 06:20 WBC 8.29 (3.98-10.04) K/mm3 RBC 2.83 L (3.98-5.22) M/mm3 Hgb 7.8 L (11.2-15.7) gm/dl Hct 26.9 L (34.1-44.9) % MCV 95.1 H (79.4-94.8) fl MCH 27.6 (25.6-32.2) pg MCHC 29.0 L (32.2-35.5) g/dl RDW Std Deviation 57.9 H (36.4-46.3) fL Plt Count 310 (182-369) K/mm3 MPV 8.7 L (9.4-12.3) fl Neut % (Auto) 70.0 (34.0-71.1) % Lymph % (Auto) 11.5 L (19.3-51.7) % [place] % (Auto) 12.4 (4.7-12.5) % Eos % (Auto) 5.7 (0.7-5.8) Baso % (Auto) 0.2 (0.1-1.2) % Neut # (Auto) 5.80 (1.56-6.13) K/mm3 Lymph # (Auto) 0.95 L (1.18-3.74) K/mm3 [place] # (Auto) 1.03 H (0.24-0.36) K/mm3 Eos # (Auto) 0.47 H (0.04-0.36) K/mm3 Baso # (Auto) 0.02 (0.01-0.08) K/mm3 Manual Slide Review Abnormal smear PT 13.3 H (9.7-12.0) SECONDS INR 1.23 Sodium 133 L (136-145) mEq/L Potassium 4.9 (3.5-5.1) mEq/L Chloride 98 (98-107) mEq/L Carbon Dioxide 27 (21-32) mEq/L Anion Gap 12.9 (5-15) BUN 33 H (7-18) mg/dL Creatinine 1.6 H (0.55-1.02) mg/dL Est Cr Clr Drug Dosing 29.82 mL/min Estimated GFR (MDRD) 31 (>60) mL/min BUN/Creatinine Ratio 20.6 H (14-18) Glucose 116 H (83-115) mg/dL Calcium 10.1 (8.5-10.1) mg/dL Magnesium 2.2 (1.8-2.4) mg/dl Med Orders - Current: Current Medications Acetaminophen (Tylenol) 650 mg PO DAILY@1400 [facility] Last Admin: 07/26/19 14:12 Dose: 650 mg Acetaminophen (Tylenol) 975 mg PO BEDTIME [facility] Last Admin: 07/26/19 20:05 Dose: Not Given Hydrocodone Bitart/Acetaminophen ([place] 325-5 Mg) 1 tab PO Q4H PRN PRN Reason: Pain Last Admin: 07/27/19 03:23 Dose: 1 tab Albuterol/Ipratropium (Duoneb 3.0-0.5 Mg/3 Ml) 3 ml NEB QIDRT [facility] Diltiazem HCl (Dilacor Xr) 240 mg PO DAILY [facility] Last Admin: 07/26/19 08:27 Dose: 240 mg Diphenhydramine HCl (Benadryl) 50 mg PO BEDTIME [facility] Last Admin: 07/26/19 20:04 Dose: Not Given Fentanyl (Duragesic) 12 mcg TRDERM Q72H [facility] Last Admin: 07/25/19 08:50 Dose: 12 mcg Fentanyl (Duragesic) 50 mcg TRDERM Q72H [facility] Last Admin: 07/25/19 08:49 Dose: 50 mcg Gabapentin (Neurontin) 100 mg PO TID [facility] Last Admin: 07/26/19 20:05 Dose: 100 mg Levothyroxine Sodium (Synthroid) 100 mcg PO ACBREAKFAST [facility] Last Admin: 07/27/19 07:59 Dose: 100 mcg Lorazepam (Ativan) 0.5 mg PO DAILY PRN PRN Reason: Anxiety Metoprolol Succinate (Toprol Xl) 50 mg PO DAILY [facility] Last Admin: 07/26/19 08:27 Dose: 50 mg Miscellaneous Information (Remove Patch) 0 ea TRDERM Q72H [facility] Last Admin: 07/25/19 08:57 Dose: 1 ea Morphine Sulfate (Morphine) 2 mg IVPUSH Q4HR PRN PRN Reason: Pain (severe 7-10) Last Admin: 07/25/19 12:37 Dose: 2 mg Nystatin (Nystop) 0 gm TOP QID [facility] Last Admin: 07/26/19 20:05 Dose: 1 applic Ondansetron HCl (Zofran) 4 mg IVPUSH Q6HR PRN PRN Reason: Nausea Oxycodone HCl (Oxycodone) 5 mg PO Q4H PRN PRN Reason: Pain (moderate 4-6) Last Admin: 07/24/19 18:00 Dose: 5 mg Pantoprazole Sodium (Protonix Iv) 40 mg IVPUSH DAILY [facility] Last Admin: 07/26/19 08:11 Dose: Not Given Senna/Docusate Sodium (Senna Plus) 1 tab PO DAILY PRN PRN Reason: Constipation Last Admin: 07/26/19 20:07 Dose: 1 tab Sodium Chloride (Saline Flush) 10 ml FLUSH ASDIRECTED PRN PRN Reason: Keep Vein Open Last Admin: 07/22/19 17:15 Dose: 10 ml Discontinued Medications Acetaminophen (Tylenol) 2 mg PO BEDTIME [facility] Albuterol/Ipratropium (Duoneb 3.0-0.5 Mg/3 Ml) 3 ml NEB QID [facility] Last Admin: 07/26/19 20:20 Dose: 3 ml Aspirin (Aspirin) 81 mg PO DAILY [facility] Furosemide (Lasix) 40 mg PO DAILY [facility] Last Admin: 07/23/19 09:12 Dose: 40 mg Hydrochlorothiazide (Hydrochlorothiazide) 25 mg PO DAILY [facility] Hydromorphone HCl (Dilaudid) 1 mg IVPUSH ONETIME ONE Stop: 07/22/19 16:53 Last Admin: 07/22/19 17:14 Dose: 1 mg Lactated Ringer's (Ringers, Lactated) 1,000 mls @ 100 mls/hr IV ASDIRECTED [facility] Stop: 07/24/19 18:29 Last Admin: 07/24/19 13:56 Dose: 100 mls/hr Sodium Chloride (Normal Saline) 250 mls @ 100 mls/hr IV ASDIRECTED [facility] Last Admin: 07/24/19 10:12 Dose: 100 mls/hr Sodium Chloride (Normal Saline) 250 mls @ 100 mls/hr IV ASDIRECTED [facility] Last Admin: 07/25/19 14:28 Dose: 100 mls/hr Ferric Sodium Gluconate Complex 250 mg/ Sodium Chloride 120 mls @ 50 mls/hr IV ONETIME ONE Stop: 07/26/19 10:16 Last Admin: 07/26/19 12:08 Dose: Not Given Ferric Sodium Gluconate Complex 250 mg/ Sodium Chloride 120 mls @ 50 mls/hr IV ONETIME ONE Stop: 07/26/19 11:23 Last Admin: 07/26/19 09:12 Dose: 50 mls/hr Losartan Potassium (Cozaar) 100 mg PO DAILY [facility] Non-Formulary Medication (Magnesium Citrate [Magnesium Citrate]) 150 mg PO BID [facility] Oxycodone/Acetaminophen (Percocet 325-5 Mg) 1 tab PO Q6H PRN PRN Reason: Low back pain Last Admin: 07/24/19 05:53 Dose: 1 tab Pantoprazole Sodium (Protonix) 40 mg PO ACBREAKFAST [facility] Last Admin: 07/25/19 06:49 Dose: 40 mg Phytonadione (Aquamephyton) 2.5 mg PO ONETIME ONE Stop: 07/25/19 13:03 Last Admin: 07/25/19 14:20 Dose: 2.5 mg Warfarin Sodium (Pharmacy To Dose - Warfarin) 1 dose .XX ASDIRECTED PRN PRN Reason: RX TO DOSE WARFARIN - Exam Quality Assessment: Supplemental Oxygen General: Alert HEENT: Pupils Equal Neck: Supple Lungs: Clear to Auscultation, Normal Respiratory Effort Cardiovascular: Regular Rate, Regular Rhythm GI/Abdominal Exam: Normal Bowel Sounds, Soft, Non-Tender, No Distention Extremities: Leg Pain (Left lower extremity pain and swelling) Skin: Warm, Dry, Intact Wound/Incisions: Healing Well Psy/Mental Status: Alert, Normal Affect, Normal Mood Sepsis Event Note - Evaluation Sepsis Screening Result: No Definite Risk - Focused Exam Vital Signs: Vital Signs Temp Pulse Resp BP Pulse Ox Pulse Ox 07/27/19 03:21 80 92 L 07/27/19 03:04 99.0 F 12 148/50 H 07/26/19 20:22 93 L Date Exam was Performed: 07/27/19 Time Exam was Performed: 14:14 - Problem List Review Problem List Initiated/Reviewed/Updated: Yes - My Orders Last 24 Hours: My Active Orders 07/27/19 10:00 Albuterol/Ipratropium [DuoNeb 3.0-0.5 MG/3 ML] 3 ml NEB QIDRT 07/28/19 05:11 BASIC METABOLIC PANEL,BMP [CHEM] AM CBC WITH AUTO DIFF [HEME] AM MAGNESIUM [CHEM] AM - Plan Plan:: Assessment * Left lower leg pain with 2 fluid collections within the medial left calf possible hematoma versus dissecting popliteal cyst measuring 10.2 cm x 1.8 cm and 11.8 cm x 2.5 cm. * Hemoglobin on admission was 8.2 and repeat this morning was 7.5. Repeat at noon was 8.2 again. * On warfarin for history of DVT with INR of 2.0. INR this morning is 1.23 * PT and OT consulted * Likely cause of blood loss CT of the left lower extremity impression: 1. 2 separate findings within the soleus muscle having the appearance of hematomas. Craniocaudal measurement of the lateral abnormality is approximately 10.5 cm with AP dimension of 3.3 cm in transverse dimension of 5.0 cm. More medial abnormality is more elongated in appearance with craniocaudal measurement of 19.1 cm, AP dimension of 4.1 cm and a transverse measurement of 2.1 cm. 2. Joint effusion is noted within the knee. 3. Degenerative change within the left knee and within the left ankle and foot. * Acute on chronic renal insufficiency -improving * Creatinine 2.2 on admission now 1.6. * Baseline creatinine 1.6 * No history of NSAID use * On losartan for hypertension at home * On hydrochlorothiazide and furosemide at home * Possible prerenal kidney disease (BUN/Creatinine >20) Renal ultrasound impression: 1. 2 cyst within the inferior right kidney. 2. Bladder volume of 423 mL, patient could not void this amount. 3. Renal ultrasound is otherwise unremarkable. * Anemia -iron deficiency * Hemoglobin 8.2 on admission -->7.5 -->8.2 -->7.4--> 1 unit PRBC --> 7.6 --> 1 unit PRBC -->7.9 * On iron supplementation at home * Black stools, but on iron supplements. No BM yesterday decreases concern for active upper GI bleed. * Hypoxemia -improving * Currently on 1 L NC * Not on home O2 * Heart failure with preserved ejection fraction with grade 2 diastolic filling pattern * Non-smoker * Decreased wheeze and crackles * Likely due to atelectasis, not volume overload * HFpEF * History of hypertension Echocardiogram summary: 1. Left ventricular ejection fraction, by visual estimation, is 55 to 60%. 2. Mild concentric left ventricular hypertrophy. 3. Mildly increased left ventricular posterior wall thickness. 4. Pseudo-normal (grade 2) pattern of LV diastolic filling. 5. The left ventricular internal cavity size is mild to moderately increased. 6. Mildly dilated left atrium. 7. Anterior and apical epicardial fat pad. 8. Trace mitral valve regurgitation. 9. No regional wall motion abnormalities. * Anticoagulation secondary to 1 episode of provoked DVT with PE * IVC filter placed in 2008 * Started on warfarin in 2009 * Stopped warfarin on admission * Urinary retention * Post void residuals yesterday were over 700 * Singh catheter was placed * Hypertension/hypothyroidism/hyperlipidemia/neuropathy/sleep apnea not on CPAP Plan * Repeat hemoglobin this afternoon * DC Singh and check post void residuals * Continue pain management * Stools for H. pylori antigen * Protonix 40 mg IV every 12 hours -switch to p.o. * Continue DuoNeb QID with EzPAP * Encouraged to get out of bed and be as active as possible considering her lower extremity difficulties. * VTE prophylaxis with SCDs on the right leg. Chemoprophylaxis is contraindicated secondary to possible ongoing bleed with anemia. * CODE STATUS: DNR/DNI * Length of stay greater than 96 hours secondary to poor resolution of left lower leg pain, renal insufficiency, hypoxemia, blood loss, and placement * Condition: Stable/good
[2019-07-27] MEDS ORDERED: Polyethylene Glycol 3350 Powder 17 GM Packet PO PRN (08:10)
[2019-07-27] MEDS: Diltiazem 240 MG Cap.ER PO SCH (08:23)
[2019-07-27] MEDS: Metoprolol Succinate 50 MG Tab.ER PO SCH (08:23)
[2019-07-27] MEDS: Gabapentin 100 MG Cap PO SCH ×3 (08:23→21:47)
[2019-07-27] MEDS: Albuterol/Ipratropium 3.0-0.5 MG/3 ML Neb Soln NEB SCH ×3 (08:59→20:42)
[2019-07-27] MEDS: Nystatin Topical Powder 15 GM Bottle TOP SCH ×4 (09:13→21:50)
[2019-07-27] MEDS: Pantoprazole 40 MG Vial IVPUSH SCH (09:14)
[2019-07-27] MEDS: Acetaminophen 325 MG Tab PO SCH ×2 (13:50→21:50)
--- NOTE | 2019-07-27 15:41 | CR ---
Chest: Portable view of the chest was obtained. Comparison: Prior chest x-ray of 07/22/19. Heart is enlarged. Upper mediastinum is normal. Lungs are clear with no acute parenchymal change. Bony structures are grossly intact. Impression: 1. Stable cardiomegaly. 2. Nothing acute is appreciated. Diagnostic code #2 This report was dictated in [place] Standard Time
[2019-07-27] MEDS: Pantoprazole 40 MG Tab.CR PO SCH (16:14)
[2019-07-27] MEDS ORDERED: Magnesium Hydroxide 400 MG/5 ML Susp 30 ML Cup PO ONE (16:15)
[2019-07-27] MEDS ORDERED: Meropenem 1 GM SDV IVPUSH SCH (17:00)
--- NOTE | 2019-07-27 17:28 | PCM.SN ---
- Free Text/Narrative Note: Patient developed a fever over 101. UA was performed which showed significant WBCs of 50-75 per high-powered field. Chest x-ray was negative. White count did go up to 10. Influenza swab was negative. Patient will be started on meropenem, Gram stain of the urine, and urine cultures.
[2019-07-27] MEDS: Meropenem Premix 500 MG in Premix Bag 1 BAG IV SCH (18:13)
[2019-07-27] MEDS: diphenhydrAMINE 50 MG Cap PO SCH (21:47)
[2019-07-28] MEDS: Meropenem Premix 500 MG in Premix Bag 1 BAG IV SCH ×3 (02:21→17:59)
[2019-07-28] MEDS: Acetaminophen/HYDROcodone 325-5 MG Tab PO PRN ×2 (05:06→11:23)
[2019-07-28] MEDS: Levothyroxine 100 MCG Tab PO SCH (05:09)
[2019-07-28] MEDS: Pantoprazole 40 MG Tab.CR PO SCH ×2 (05:09→16:49)
[2019-07-28] MEDS: Albuterol/Ipratropium 3.0-0.5 MG/3 ML Neb Soln NEB SCH ×4 (05:57→20:27)
[2019-07-28] MEDS ORDERED: Vancomycin 2 GM in Sodium Chloride 0.9% 500 ML IV ONE (09:00)
[2019-07-28] MEDS: Diltiazem 240 MG Cap.ER PO SCH (09:14)
--- NOTE | 2019-07-28 09:15 | PCM.PN ---
- General Info Date of Service: 07/28/19 Admission Dx/Problem (Free Text): Admission Diagnosis/Problem Admission Diagnosis/Problem Knee pain Subjective Update: Patient had an episode of fever after getting her urinary catheter removed yesterday. Gram stain of her urine, UA, culture, blood count, and blood cultures were drawn. He was started on meropenem. Patient states that she had some episodes where she felt feverish, but her measured temperature was normal. Patient does state that she is feeling a little more worn out today. Functional Status: Reports: Pain Controlled - Review of Systems General: Reports: Fever HEENT: Reports: No Symptoms Pulmonary: Reports: No Symptoms Cardiovascular: Reports: No Symptoms Gastrointestinal: Reports: No Symptoms Musculoskeletal: Reports: Leg Pain - Patient Data Vitals - Most Recent: Last Vital Signs Temp 98.8 F 07/28/19 05:12 Pulse 75 07/28/19 05:12 Resp 14 07/28/19 05:12 BP 134/56 L 07/28/19 05:12 Pulse Ox 91 L 07/28/19 05:59 Weight - Most Recent: 345 lb 3.2 oz I&O - Last 24 Hours: Intake & Output 07/27/19 07/28/19 07/28/19 22:59 06:59 14:59 Intake Total 1520 800 Output Total 1800 100 Balance -280 700 Lab Results Last 24 Hours: Laboratory Results - last 24 hr 07/27/19 07/27/19 07/27/19 Range/Units 14:30 14:30 15:30 WBC 10.50 H (3.98-10.04) K/mm3 RBC 3.18 L (3.98-5.22) M/mm3 Hgb 8.7 L (11.2-15.7) gm/dl Hct 30.2 L (34.1-44.9) % MCV 95.0 H (79.4-94.8) fl MCH 27.4 (25.6-32.2) pg MCHC 28.8 L (32.2-35.5) g/dl RDW Std Deviation 58.5 H (36.4-46.3) fL Plt Count 373 H (182-369) K/mm3 MPV 8.7 L (9.4-12.3) fl Neut % (Auto) 77.5 H (34.0-71.1) % Lymph % (Auto) 9.2 L (19.3-51.7) % [place] % (Auto) 10.0 (4.7-12.5) % Eos % (Auto) 2.7 (0.7-5.8) Baso % (Auto) 0.2 (0.1-1.2) % Neut # (Auto) 8.14 H (1.56-6.13) K/mm3 Lymph # (Auto) 0.97 L (1.18-3.74) K/mm3 [place] # (Auto) 1.05 H (0.24-0.36) K/mm3 Eos # (Auto) 0.28 (0.04-0.36) K/mm3 Baso # (Auto) 0.02 (0.01-0.08) K/mm3 Manual Slide Review Abnormal smear Sodium 134 L (136-145) mEq/L Potassium 5.0 (3.5-5.1) mEq/L Chloride 96 L (98-107) mEq/L Carbon Dioxide 29 (21-32) mEq/L Anion Gap 14.0 (5-15) BUN 32 H (7-18) mg/dL Creatinine 1.6 H (0.55-1.02) mg/dL Est Cr Clr Drug Dosing 29.82 mL/min Estimated GFR (MDRD) 31 (>60) mL/min BUN/Creatinine Ratio 20.0 H (14-18) Glucose 118 H (83-115) mg/dL Calcium 10.0 (8.5-10.1) mg/dL Magnesium (1.8-2.4) mg/dl Total Bilirubin 0.5 (0.2-1.0) mg/dL AST 21 (15-37) U/L ALT 21 (14-59) U/L Alkaline Phosphatase 108 (46-116) U/L C-Reactive Protein 33.9 H* (<1.0) mg/dL Total Protein 7.5 (6.4-8.2) g/dl Albumin 2.2 L (3.4-5.0) g/dl Globulin 5.3 gm/dL Albumin/Globulin Ratio 0.4 L (1-2) Urine Color Yellow (Yellow) Urine Appearance Clear (Clear) Urine pH 7.0 (5.0-8.0) Ur Specific [place] 1.020 (1.005-1.030) Urine Protein 2+ H (Negative) Urine Glucose (UA) Negative (Negative) Urine Ketones Negative (Negative) Urine Occult Blood 2+ H (Negative) Urine Nitrite Negative (Negative) Urine Bilirubin Negative (Negative) Urine Urobilinogen 1.0 (0.2-1.0) Ur Leukocyte Esterase 1+ H (Negative) Urine RBC 20-30 H (0-5) /hpf Urine WBC 50-75 H (0-5) /hpf Urine WBC Clumps Few (NOT SEEN) /hpf Ur Squamous Epith Cells 0-5 (0-5) /hpf Urine Bacteria Moderate H (FEW) /hpf Urine Mucus Few (FEW) /hpf 07/28/19 Range/Units 05:40 WBC (3.98-10.04) K/mm3 RBC (3.98-5.22) M/mm3 Hgb (11.2-15.7) gm/dl Hct (34.1-44.9) % MCV (79.4-94.8) fl MCH (25.6-32.2) pg MCHC (32.2-35.5) g/dl RDW Std Deviation (36.4-46.3) fL Plt Count (182-369) K/mm3 MPV (9.4-12.3) fl Neut % (Auto) (34.0-71.1) % Lymph % (Auto) (19.3-51.7) % [place] % (Auto) (4.7-12.5) % Eos % (Auto) (0.7-5.8) Baso % (Auto) (0.1-1.2) % Neut # (Auto) (1.56-6.13) K/mm3 Lymph # (Auto) (1.18-3.74) K/mm3 [place] # (Auto) (0.24-0.36) K/mm3 Eos # (Auto) (0.04-0.36) K/mm3 Baso # (Auto) (0.01-0.08) K/mm3 Manual Slide Review Sodium 133 L (136-145) mEq/L Potassium 4.7 (3.5-5.1) mEq/L Chloride 97 L (98-107) mEq/L Carbon Dioxide 29 (21-32) mEq/L Anion Gap 11.7 (5-15) BUN 31 H (7-18) mg/dL Creatinine 1.6 H (0.55-1.02) mg/dL Est Cr Clr Drug Dosing 29.82 mL/min Estimated GFR (MDRD) 31 (>60) mL/min BUN/Creatinine Ratio 19.4 H (14-18) Glucose 112 (83-115) mg/dL Calcium 10.0 (8.5-10.1) mg/dL Magnesium 2.2 (1.8-2.4) mg/dl Total Bilirubin (0.2-1.0) mg/dL AST (15-37) U/L ALT (14-59) U/L Alkaline Phosphatase (46-116) U/L C-Reactive Protein (<1.0) mg/dL Total Protein (6.4-8.2) g/dl Albumin (3.4-5.0) g/dl Globulin gm/dL Albumin/Globulin Ratio (1-2) Urine Color (Yellow) Urine Appearance (Clear) Urine pH (5.0-8.0) Ur Specific [place] (1.005-1.030) Urine Protein (Negative) Urine Glucose (UA) (Negative) Urine Ketones (Negative) Urine Occult Blood (Negative) Urine Nitrite (Negative) Urine Bilirubin (Negative) Urine Urobilinogen (0.2-1.0) Ur Leukocyte Esterase (Negative) Urine RBC (0-5) /hpf Urine WBC (0-5) /hpf Urine WBC Clumps (NOT SEEN) /hpf Ur Squamous Epith Cells (0-5) /hpf Urine Bacteria (FEW) /hpf Urine Mucus (FEW) /hpf [place] Results Last 24 Hours: Microbiology 07/27/19 15:30 Gram Stain - Final Urine, Quick Cath (In-Out) 07/27/19 15:30 Influenza Type A Antigen Screen - Final Nasal, Unspecified NEGATIVE INFLUENZA A VIRUS AG REFERENCE RANGE: NEGATIVE Influenza Type B Antigen Screen - Final NEGATIVE INFLUENZA B VIRUS AG REFERENCE RANGE: NEGATIVE Med Orders - Current: Current Medications Acetaminophen (Tylenol) 650 mg PO DAILY@1400 [facility] Last Admin: 07/27/19 13:50 Dose: 650 mg Acetaminophen (Tylenol) 975 mg PO BEDTIME [facility] Last Admin: 07/27/19 21:50 Dose: Not Given Hydrocodone Bitart/Acetaminophen ([place] 325-5 Mg) 1 tab PO Q4H PRN PRN Reason: Pain Last Admin: 07/28/19 05:06 Dose: 1 tab Albuterol/Ipratropium (Duoneb 3.0-0.5 Mg/3 Ml) 3 ml NEB QIDRT [facility] Last Admin: 07/28/19 05:57 Dose: 3 ml Diltiazem HCl (Dilacor Xr) 240 mg PO DAILY [facility] Last Admin: 07/27/19 08:23 Dose: 240 mg Diphenhydramine HCl (Benadryl) 50 mg PO BEDTIME [facility] Last Admin: 07/27/19 21:47 Dose: Not Given Fentanyl (Duragesic) 12 mcg TRDERM Q72H [facility] Last Admin: 07/25/19 08:50 Dose: 12 mcg Fentanyl (Duragesic) 50 mcg TRDERM Q72H [facility] Last Admin: 07/25/19 08:49 Dose: 50 mcg Gabapentin (Neurontin) 100 mg PO TID [facility] Last Admin: 07/27/19 21:47 Dose: 100 mg Meropenem/Sodium Chloride 500 (mg/ Premix) 50 mls @ 100 mls/hr IV Q8H [facility] Last Admin: 07/28/19 02:21 Dose: 100 mls/hr Vancomycin HCl 2 gm/ Sodium (Chloride) 500 mls @ 250 mls/hr IV ONETIME ONE Stop: 07/28/19 10:59 Vancomycin HCl 1 gm/Vancomycin HCl 500 mg/ Sodium Chloride 500 mls @ 250 mls/ hr IV Q24H [facility] Levothyroxine Sodium (Synthroid) 100 mcg PO ACBREAKFAST [facility] Last Admin: 07/28/19 05:09 Dose: 100 mcg Lorazepam (Ativan) 0.5 mg PO DAILY PRN PRN Reason: Anxiety Metoprolol Succinate (Toprol Xl) 50 mg PO DAILY [facility] Last Admin: 07/27/19 08:23 Dose: 50 mg Miscellaneous Information (Remove Patch) 0 ea TRDERM Q72H [facility] Last Admin: 07/25/19 08:57 Dose: 1 ea Morphine Sulfate (Morphine) 2 mg IVPUSH Q4HR PRN PRN Reason: Pain (severe 7-10) Last Admin: 07/25/19 12:37 Dose: 2 mg Nystatin (Nystop) 0 gm TOP QID [facility] Last Admin: 07/27/19 21:50 Dose: 1 applic Ondansetron HCl (Zofran) 4 mg IVPUSH Q6HR PRN PRN Reason: Nausea Oxycodone HCl (Oxycodone) 5 mg PO Q4H PRN PRN Reason: Pain (moderate 4-6) Last Admin: 07/24/19 18:00 Dose: 5 mg Pantoprazole Sodium (Protonix) 40 mg PO BIDAC [facility] Last Admin: 07/28/19 05:09 Dose: 40 mg Polyethylene Glycol (Miralax) 17 gm PO DAILY PRN PRN Reason: Constipation Last Admin: 07/27/19 08:22 Dose: 17 gm Senna/Docusate Sodium (Senna Plus) 1 tab PO DAILY PRN PRN Reason: Constipation Last Admin: 07/27/19 21:47 Dose: 1 tab Sodium Chloride (Saline Flush) 10 ml FLUSH ASDIRECTED PRN PRN Reason: Keep Vein Open Last Admin: 07/22/19 17:15 Dose: 10 ml Vancomycin HCl (Pharmacy To Dose - Vancomycin) 1 dose .XX ASDIRECTED PRN PRN Reason: RX TO DOSE VANCO Discontinued Medications Acetaminophen (Tylenol) 2 mg PO BEDTIME [facility] Albuterol/Ipratropium (Duoneb 3.0-0.5 Mg/3 Ml) 3 ml NEB QID [facility] Last Admin: 07/26/19 20:20 Dose: 3 ml Aspirin (Aspirin) 81 mg PO DAILY [facility] Furosemide (Lasix) 40 mg PO DAILY [facility] Last Admin: 07/23/19 09:12 Dose: 40 mg Hydrochlorothiazide (Hydrochlorothiazide) 25 mg PO DAILY [facility] Hydromorphone HCl (Dilaudid) 1 mg IVPUSH ONETIME ONE Stop: 07/22/19 16:53 Last Admin: 07/22/19 17:14 Dose: 1 mg Lactated Ringer's (Ringers, Lactated) 1,000 mls @ 100 mls/hr IV ASDIRECTED [facility] Stop: 07/24/19 18:29 Last Admin: 07/24/19 13:56 Dose: 100 mls/hr Sodium Chloride (Normal Saline) 250 mls @ 100 mls/hr IV ASDIRECTED [facility] Last Admin: 07/24/19 10:12 Dose: 100 mls/hr Sodium Chloride (Normal Saline) 250 mls @ 100 mls/hr IV ASDIRECTED [facility] Last Admin: 07/25/19 14:28 Dose: 100 mls/hr Ferric Sodium Gluconate Complex 250 mg/ Sodium Chloride 120 mls @ 50 mls/hr IV ONETIME ONE Stop: 07/26/19 10:16 Last Admin: 07/26/19 12:08 Dose: Not Given Ferric Sodium Gluconate Complex 250 mg/ Sodium Chloride 120 mls @ 50 mls/hr IV ONETIME ONE Stop: 07/26/19 11:23 Last Admin: 07/26/19 09:12 Dose: 50 mls/hr Losartan Potassium (Cozaar) 100 mg PO DAILY [facility] Magnesium Hydroxide (Milk Of Magnesia) 30 ml PO ONETIME ONE Stop: 07/27/19 16:16 Last Admin: 07/27/19 16:14 Dose: 30 ml Meropenem (Merrem) 1 gm IVPUSH Q8H [facility] Last Admin: 07/27/19 18:21 Dose: Not Given Non-Formulary Medication (Magnesium Citrate [Magnesium Citrate]) 150 mg PO BID [facility] Oxycodone/Acetaminophen (Percocet 325-5 Mg) 1 tab PO Q6H PRN PRN Reason: Low back pain Last Admin: 07/24/19 05:53 Dose: 1 tab Pantoprazole Sodium (Protonix) 40 mg PO ACBREAKFAST [facility] Last Admin: 07/25/19 06:49 Dose: 40 mg Pantoprazole Sodium (Protonix Iv) 40 mg IVPUSH DAILY [facility] Last Admin: 07/27/19 09:14 Dose: 40 mg Phytonadione (Aquamephyton) 2.5 mg PO ONETIME ONE Stop: 07/25/19 13:03 Last Admin: 07/25/19 14:20 Dose: 2.5 mg Warfarin Sodium (Pharmacy To Dose - Warfarin) 1 dose .XX ASDIRECTED PRN PRN Reason: RX TO DOSE WARFARIN - Exam Quality Assessment: Supplemental Oxygen General: Alert, Oriented HEENT: Pupils Equal, Mucous Membr. Moist/[place] Neck: Supple Lungs: Clear to Auscultation, Normal Respiratory Effort Cardiovascular: Regular Rate, Regular Rhythm GI/Abdominal Exam: Normal Bowel Sounds, Soft, Non-Tender, No Distention Back Exam: Normal Inspection Extremities: Leg Pain (Left leg tenderness, improving) Skin: Warm, Dry, Intact Sepsis Event Note - Evaluation Sepsis Screening Result: No Definite Risk - Focused Exam Vital Signs: Vital Signs Temp Pulse Resp BP Pulse Ox Pulse Ox 07/28/19 05:59 91 L 07/28/19 05:12 98.8 F 75 14 134/56 L 92 L 07/27/19 21:22 149/53 H 07/27/19 21:21 97.9 F 80 18 152/51 H 93 L Date Exam was Performed: 07/28/19 Time Exam was Performed: 09:01 - Problem List Review Problem List Initiated/Reviewed/Updated: Yes - My Orders Last 24 Hours: My Active Orders 07/27/19 09:25 Activity as Tolerated [RC] BID 07/27/19 10:00 Albuterol/Ipratropium [DuoNeb 3.0-0.5 MG/3 ML] 3 ml NEB QIDRT 07/27/19 14:35 Urinary Catheter Assessment [RC] ASDIRECTED 07/27/19 14:45 Insert Urinary Catheter [OM.PC] Q24H 07/27/19 15:30 CULTURE URINE [RM] Routine 07/27/19 15:35 CULTURE BLOOD [BC] Routine 07/27/19 16:00 Pantoprazole [ProTONIX] 40 mg PO BIDAC 07/27/19 18:00 Meropenem Premix [Meropenem] 500 mg Premix Bag 1 bag IV Q8H 07/28/19 08:00 Pharmacy to Dose - Vancomycin 1 dose .XX ASDIRECTED PRN 07/28/19 09:00 Vancomycin 2 gm Sodium Chloride 0.9% [Normal Saline] 500 ml IV ONETIME 07/29/19 09:00 Vancomycin 1 gm Vancomycin 500 mg Sodium Chloride 0.9% [Normal Saline] 500 ml IV Q24H - Plan Plan:: Assessment * Left lower leg pain with 2 fluid collections within the medial left calf possible hematoma versus dissecting popliteal cyst measuring 10.2 cm x 1.8 cm and 11.8 cm x 2.5 cm. * Hemoglobin on admission was 8.2 and repeat yesterday afternoon was 8.7 * On warfarin on admission for history of DVT with INR of 2.0. INR now 1.23 * PT and OT consulted * Hematoma is likely cause of blood loss * Acute on chronic renal insufficiency -improving * Creatinine 2.2 on admission now 1.6. * Baseline creatinine 1.6 * No history of NSAID use * On losartan for hypertension at home * On hydrochlorothiazide and furosemide at home * Possible prerenal kidney disease (BUN/Creatinine >20) * Anemia -iron deficiency * Hemoglobin 8.2 on admission -->7.5 -->8.2 -->7.4--> 1 unit PRBC --> 7.6 --> 1 unit PRBC -->7.9 -->8.7 * On iron supplementation at home * Black stools, but on iron supplements. No BM yesterday decreases concern for active upper GI bleed. * Protonix 40 mg BID * Hypoxemia -improving * Currently on 1 L NC * Not on home O2 * Heart failure with preserved ejection fraction with grade 2 diastolic filling pattern * Non-smoker * Decreased wheeze and crackles * Likely due to atelectasis, not volume overload * HFpEF * History of hypertension * Anticoagulation secondary to 1 episode of provoked DVT with PE * IVC filter placed in 2008 * Started on warfarin in 2009 * Stopped warfarin on admission * Urinary retention * Post void redone last PM 300+ * Singh catheter was placed, but removed yesterday. * Urinary tract infection -complicated * Afebrile overnight * Started meropenem yesterday * Gram stain few gram-positive coccobacillus and gram-negative rods * UA microscopic WBCs 50-75 * Blood cultures and urine cultures pending * Hypertension/hypothyroidism/hyperlipidemia/neuropathy/sleep apnea not on CPAP Plan * Repeat hemoglobin this afternoon * Continue to check post void residuals * Continue pain management * Stools for H. pylori antigen - waiting for BM * Meropenem pharmacy to dose * Vancomycin pharmacy to dose * Continue DuoNeb QID with EzPAP * Encouraged to get out of bed and be as active as possible considering her lower extremity difficulties. * VTE prophylaxis with SCDs on the right leg. Chemoprophylaxis is contraindicated secondary to possible ongoing bleed with anemia. * CODE STATUS: DNR/DNI * Length of stay greater than 96 hours secondary to poor resolution of left lower leg pain, renal insufficiency, hypoxemia, blood loss, and placement * Condition: Stable/good Pertinent imaging: Echocardiogram summary: 1. Left ventricular ejection fraction, by visual estimation, is 55 to 60%. 2. Mild concentric left ventricular hypertrophy. 3. Mildly increased left ventricular posterior wall thickness. 4. Pseudo-normal (grade 2) pattern of LV diastolic filling. 5. The left ventricular internal cavity size is mild to moderately increased. 6. Mildly dilated left atrium. 7. Anterior and apical epicardial fat pad. 8. Trace mitral valve regurgitation. 9. No regional wall motion abnormalities. CT of the left lower extremity impression: 1. 2 separate findings within the soleus muscle having the appearance of hematomas. Craniocaudal measurement of the lateral abnormality is approximately 10.5 cm with AP dimension of 3.3 cm in transverse dimension of 5.0 cm. More medial abnormality is more elongated in appearance with craniocaudal measurement of 19.1 cm, AP dimension of 4.1 cm and a transverse measurement of 2.1 cm. 2. Joint effusion is noted within the knee. 3. Degenerative change within the left knee and within the left ankle and foot. Renal ultrasound impression: 1. 2 cyst within the inferior right kidney. 2. Bladder volume of 423 mL, patient could not void this amount. 3. Renal ultrasound is otherwise unremarkable.
[2019-07-28] MEDS: Gabapentin 100 MG Cap PO SCH ×3 (09:16→21:03)
[2019-07-28] MEDS: Metoprolol Succinate 50 MG Tab.ER PO SCH (09:17)
[2019-07-28] MEDS: Nystatin Topical Powder 15 GM Bottle TOP SCH ×4 (09:18→21:11)
[2019-07-28] MEDS: fentaNYL 50 MCG/HR Transdermal Patch TRDERM SCH (09:26)
[2019-07-28] MEDS: fentaNYL 12 MCG/HR Transdermal Patch TRDERM SCH (09:30)
[2019-07-28] MEDS: Acetaminophen 325 MG Tab PO SCH ×2 (14:03→21:03)
[2019-07-28] MEDS: diphenhydrAMINE 50 MG Cap PO SCH (21:03)
[2019-07-29] MEDS: Acetaminophen/HYDROcodone 325-5 MG Tab PO PRN ×2 (01:25→09:10)
[2019-07-29] MEDS: Meropenem Premix 500 MG in Premix Bag 1 BAG IV SCH ×3 (01:29→18:31)
[2019-07-29] MEDS: Pantoprazole 40 MG Tab.CR PO SCH ×2 (05:35→15:34)
[2019-07-29] MEDS: Levothyroxine 100 MCG Tab PO SCH (05:35)
[2019-07-29] MEDS: Albuterol/Ipratropium 3.0-0.5 MG/3 ML Neb Soln NEB SCH (05:50)
[2019-07-29] MEDS ORDERED: Vancomycin 1 GM, Vancomycin 500 MG in Sodium Chloride 0.9% 500 ML IV SCH (09:00)
[2019-07-29] MEDS: Diltiazem 240 MG Cap.ER PO SCH (09:50)
[2019-07-29] MEDS: Gabapentin 100 MG Cap PO SCH ×3 (09:50→21:22)
[2019-07-29] MEDS: Metoprolol Succinate 50 MG Tab.ER PO SCH (09:51)
[2019-07-29] MEDS: Nystatin Topical Powder 15 GM Bottle TOP SCH ×4 (10:55→21:25)
[2019-07-29] MEDS: Acetaminophen 325 MG Tab PO SCH ×2 (13:31→21:21)
--- NOTE | 2019-07-29 19:32 | PCM.PN ---
- General Info Date of Service: 07/29/19 Subjective Update: Feeling ok Slept so so Pain controlled Eating ok - Patient Data Vitals - Most Recent: Last Vital Signs Temp 98.2 F 07/29/19 14:51 Pulse 69 07/29/19 14:51 Resp 20 07/29/19 14:51 BP 129/78 07/29/19 14:51 Pulse Ox 95 07/29/19 14:51 Weight - Most Recent: 155.582 kg - Exam Quality Assessment: Supplemental Oxygen General: Alert, Oriented, Cooperative, No Acute Distress HEENT: Pupils Equal, Pupils Reactive, EOMI, Mucous Membr. Moist/[place] Neck: Supple Lungs: Decreased Breath Sounds. No: Crackles, Rales, Rhonchi, Wheezing Cardiovascular: Regular Rate, Regular Rhythm. No: Murmurs, Gallops, Rubs GI/Abdominal Exam: Soft, Non-Tender. No: Guarding, Rigid, Rebound Extremities: Normal Inspection, Pedal Edema, Slow Capillary Refill. No: Normal Range of Motion, Non-Tender Sepsis Event Note - Evaluation Sepsis Screening Result: No Definite Risk - Focused Exam Vital Signs: Vital Signs Temp Pulse Resp BP Pulse Ox 07/29/19 14:51 98.2 F 69 20 129/78 95 07/29/19 09:52 84 139/59 L 98 07/29/19 09:51 84 139/59 L Date Exam was Performed: 07/31/19 Time Exam was Performed: 19:13 - Problem List & Annotations (1) Rupture of popliteal cyst of left knee region SNOMED Code(s): 3815882559472798 Code(s): M66.0 - RUPTURE OF POPLITEAL CYST Status: Acute Current Visit: Yes (2) Chronic knee pain SNOMED Code(s): 78032386 Code(s): M25.569 - PAIN IN UNSPECIFIED KNEE; G89.29 - OTHER CHRONIC PAIN Status: Acute Current Visit: Yes (3) Hematoma SNOMED Code(s): 738160844 Code(s): T14.8XXA - OTHER INJURY OF UNSPECIFIED BODY REGION, INITIAL ENCOUNTER Status: Acute Current Visit: Yes (4) Acute hypoxemic respiratory failure SNOMED Code(s): 359549606 Code(s): J96.01 - ACUTE RESPIRATORY FAILURE WITH HYPOXIA Status: Acute Current Visit: Yes (5) UTI (urinary tract infection) SNOMED Code(s): 87595299 Code(s): N39.0 - URINARY TRACT INFECTION, SITE NOT SPECIFIED Status: Acute Current Visit: Yes (6) Chronic kidney disease (CKD), stage III (moderate) SNOMED Code(s): 926846123 Code(s): N18.3 - CHRONIC KIDNEY DISEASE, STAGE 3 (MODERATE) Status: Acute Current Visit: Yes (7) Hyponatremia SNOMED Code(s): 54854349 Code(s): E87.1 - HYPO-OSMOLALITY AND HYPONATREMIA Status: Acute Current Visit: Yes (8) Microcytic anemia SNOMED Code(s): 150688887 Code(s): D50.9 - IRON DEFICIENCY ANEMIA, UNSPECIFIED Status: Acute Current Visit: Yes (9) Acute renal failure (ARF) SNOMED Code(s): 59360947 Code(s): N17.9 - ACUTE KIDNEY FAILURE, UNSPECIFIED Status: Acute Current Visit: Yes Qualifiers: Acute renal failure type: unspecified Qualified Code(s): N17.9 - Acute kidney failure, unspecified (10) Acute urinary retention SNOMED Code(s): 662373569 Code(s): R33.8 - OTHER RETENTION OF URINE Status: Acute Current Visit: Yes (11) Diastolic heart failure SNOMED Code(s): 401256944 Code(s): I50.30 - UNSPECIFIED DIASTOLIC (CONGESTIVE) HEART FAILURE Status: Acute Current Visit: Yes (12) Bedbound SNOMED Code(s): 774471790 Code(s): Z74.01 - BED CONFINEMENT STATUS Status: Acute Current Visit: Yes (13) Dyslipidemia SNOMED Code(s): 465958491 Code(s): E78.5 - HYPERLIPIDEMIA, UNSPECIFIED Status: Acute Current Visit : Yes (14) Hypoalbuminemia SNOMED Code(s): 889537738 Code(s): E88.09 - OTH DISORDERS OF PLASMA-PROTEIN METABOLISM, NEC Status: Acute Current Visit: Yes (15) Hypothyroidism SNOMED Code(s): 55862284 Code(s): E03.9 - HYPOTHYROIDISM, UNSPECIFIED Status: Acute Current Visit : Yes (16) Knee pain, acute SNOMED Code(s): 14740209, 736082830 Code(s): M25.569 - PAIN IN UNSPECIFIED KNEE Status: Acute Current Visit: Yes (17) Knee pain, left SNOMED Code(s): 42128998 Code(s): M25.562 - PAIN IN LEFT KNEE Status: Acute Current Visit: Yes (18) Low back pain SNOMED Code(s): 556565763 Code(s): M54.5 - LOW BACK PAIN Status: Acute Current Visit: Yes Qualifiers: Chronicity: acute Back pain laterality: bilateral Sciatica presence: without sciatica Qualified Code(s): M54.5 - Low back pain - Problem List Review Problem List Initiated/Reviewed/Updated: Yes - Plan Plan:: Acute on chronic knee pain 2 hematomas on LLE and ruptured popliteal cyst Chronic low back pain Chronic opioid user Came in with worsening knee pain According to patient she hit it on the side of the bed Unable to ambulate or stand on her own Chronic fentanyl patch, just increased dose PLAN - Continue Fentanyl patch UTI Pathologic UA on admission Urine cultured Started on Meropenem PLAN - Continue meropenem Acute hypoxemic respiratory failure Stage 2 diastolic heart failure O2 sats on admission 90% on RA and dropped to 84%--> Placed on NC Currently on 1L PLAN - Continue O2 supplementation - RT assess and treat - Manage HTN Hypertension BP on admission 138/51 Home meds, Losartan PLAN - Reconcile home meds once available - PRN hydralazine Previous DVT/ PE Previous GI bleed Presence of IVC filter Currently on warfarin IVC filter placed > 10 years ago Hb worse than in June PLAN - Monitor for bleeding - Continue warfarin Chronic kidney disease (CKD), stage III (moderate) Hyponatremia Microcytic anemia Likely 2/2 volume depletion Hb 06/2019 9.8, 8.2 on admission --> dropped to 7 and transfused 2u PRBC--> current 8.8 On iron supplementation at home PLAN - Monitor urine output - Renally dosed medications - Avoid nephrotoxic medications - Monitor electrolytes and adjust as needed Dyslipidemia On Pravastatin PLAN - Continue home pravastatin Hypothyroidism No acute issues PLAN - Continue home med once doses are available Vitamin D deficiency On vitamin d supplementation PLAN - Vitamin D level Polypharmacy 25 prescription medications Multiple central acting ones PLAN - Reconcile and adjust prior to discharge Morbid obesity with BMI of 50.0-59.9, adult Bedbound Hypoalbuminemia Likely from chronic deconditioning PLAN - PT and OT consult - Dietary consult and follow up Acute renal failure (ARF) on admission, resolved Acute urinary retention, resolved PROPHYLAXIS DVT- Warfarin GI- not indicated CODE STATUS: DNR/DNI DISPOSITION: Patient will be admitted for pain control, evaluation by PT and OT for placement recommendations. Currently patient lives at home, granddaughter is acute care nursing assistant.
[2019-07-29] MEDS: diphenhydrAMINE 50 MG Cap PO SCH (21:21)
[2019-07-30] MEDS: Meropenem Premix 500 MG in Premix Bag 1 BAG IV SCH ×2 (01:31→09:20)
[2019-07-30] MEDS: Levothyroxine 100 MCG Tab PO SCH (05:59)
[2019-07-30] MEDS: Pantoprazole 40 MG Tab.CR PO SCH (05:59)
[2019-07-30] MEDS: Acetaminophen/HYDROcodone 325-5 MG Tab PO PRN ×2 (07:37→21:15)
[2019-07-30] MEDS: Diltiazem 240 MG Cap.ER PO SCH (09:16)
[2019-07-30] MEDS: Metoprolol Succinate 50 MG Tab.ER PO SCH (09:17)
[2019-07-30] MEDS: Gabapentin 100 MG Cap PO SCH ×3 (09:20→21:12)
[2019-07-30] MEDS: Nystatin Topical Powder 15 GM Bottle TOP SCH ×3 (09:21→16:54)
[2019-07-30] MEDS: Polyethylene Glycol 3350 Powder 17 GM Packet PO SCH (09:21)
[2019-07-30] MEDS: Acetaminophen 325 MG Tab PO SCH ×2 (14:27→21:12)
[2019-07-30] MEDS: diphenhydrAMINE 50 MG Cap PO SCH (21:12)
[2019-07-31] MEDS: Nystatin Topical Powder 15 GM Bottle TOP SCH ×5 (02:07→20:54)
[2019-07-31] MEDS: Levothyroxine 100 MCG Tab PO SCH (07:41)
[2019-07-31] MEDS: Gabapentin 100 MG Cap PO SCH ×3 (08:19→20:54)
[2019-07-31] MEDS: Diltiazem 240 MG Cap.ER PO SCH (08:19)
[2019-07-31] MEDS: Acetaminophen/HYDROcodone 325-5 MG Tab PO PRN ×2 (08:19→16:52)
[2019-07-31] MEDS: Metoprolol Succinate 50 MG Tab.ER PO SCH (08:20)
[2019-07-31] MEDS: Polyethylene Glycol 3350 Powder 17 GM Packet PO SCH (08:20)
[2019-07-31] MEDS: fentaNYL 50 MCG/HR Transdermal Patch TRDERM SCH (08:23)
[2019-07-31] MEDS: fentaNYL 12 MCG/HR Transdermal Patch TRDERM SCH (08:23)
--- NOTE | 2019-07-31 14:11 | PCM.PN ---
- General Info Date of Service: 07/31/19 Subjective Update: Still on NC 1L BM 07/30 Feeling OK Slept OK - Exam Quality Assessment: Supplemental Oxygen General: Alert, Oriented, Cooperative, No Acute Distress HEENT: Pupils Equal, Pupils Reactive, EOMI, Mucous Membr. Moist/[place] Neck: Supple Lungs: Decreased Breath Sounds. No: Crackles, Rales, Rhonchi, Wheezing Cardiovascular: Regular Rate, Regular Rhythm. No: Murmurs, Gallops, Rubs GI/Abdominal Exam: Soft, Non-Tender. No: Distended, Guarding, Rigid, Rebound Extremities: Pedal Edema, Slow Capillary Refill, Joint Swelling, Leg Pain, Limited Range of Motion Neurological: No New Focal Deficit Sepsis Event Note - Evaluation Sepsis Screening Result: No Definite Risk - Focused Exam Vital Signs: Vital Signs Pulse BP 07/31/19 08:20 73 140/64 Date Exam was Performed: 07/31/19 Time Exam was Performed: 19:33 - Problem List & Annotations (1) Acute hypoxemic respiratory failure SNOMED Code(s): 181280792 Code(s): J96.01 - ACUTE RESPIRATORY FAILURE WITH HYPOXIA Status: Acute Current Visit: Yes (2) Acute renal failure (ARF) SNOMED Code(s): 76040211 Code(s): N17.9 - ACUTE KIDNEY FAILURE, UNSPECIFIED Status: Acute Current Visit: Yes Qualifiers: Acute renal failure type: unspecified Qualified Code(s): N17.9 - Acute kidney failure, unspecified (3) Acute urinary retention SNOMED Code(s): 306114614 Code(s): R33.8 - OTHER RETENTION OF URINE Status: Acute Current Visit: Yes (4) Bedbound SNOMED Code(s): 856002273 Code(s): Z74.01 - BED CONFINEMENT STATUS Status: Acute Current Visit: Yes (5) Chronic kidney disease (CKD), stage III (moderate) SNOMED Code(s): 047531566 Code(s): N18.3 - CHRONIC KIDNEY DISEASE, STAGE 3 (MODERATE) Status: Acute Current Visit: Yes (6) Chronic knee pain SNOMED Code(s): 71934360 Code(s): M25.569 - PAIN IN UNSPECIFIED KNEE; G89.29 - OTHER CHRONIC PAIN Status: Acute Current Visit: Yes (7) Diastolic heart failure SNOMED Code(s): 494054881 Code(s): I50.30 - UNSPECIFIED DIASTOLIC (CONGESTIVE) HEART FAILURE Status: Acute Current Visit: Yes (8) Dyslipidemia SNOMED Code(s): 092614445 Code(s): E78.5 - HYPERLIPIDEMIA, UNSPECIFIED Status: Acute Current Visit : Yes (9) Hematoma SNOMED Code(s): 727166707 Code(s): T14.8XXA - OTHER INJURY OF UNSPECIFIED BODY REGION, INITIAL ENCOUNTER Status: Acute Current Visit: Yes (10) Hypertension SNOMED Code(s): 86752406 Code(s): I10 - ESSENTIAL (PRIMARY) HYPERTENSION Status: Acute Current Visit: Yes (11) Hypoalbuminemia SNOMED Code(s): 669569688 Code(s): E88.09 - OTH DISORDERS OF PLASMA-PROTEIN METABOLISM, NEC Status: Acute Current Visit: Yes (12) Hyponatremia SNOMED Code(s): 05934715 Code(s): E87.1 - HYPO-OSMOLALITY AND HYPONATREMIA Status: Acute Current Visit: Yes (13) Microcytic anemia SNOMED Code(s): 611246963 Code(s): D50.9 - IRON DEFICIENCY ANEMIA, UNSPECIFIED Status: Acute Current Visit: Yes (14) Polypharmacy SNOMED Code(s): 312758571 Code(s): Z79.899 - OTHER TABLET COATER (CURRENT) DRUG THERAPY Status: Acute Current Visit: Yes (15) Presence of IVC filter SNOMED Code(s): 185644035198525, 226609198627772 Code(s): Z95.828 - PRESENCE OF OTHER VASCULAR IMPLANTS AND GRAFTS Status: Acute Current Visit: Yes (16) Rupture of popliteal cyst of left knee region SNOMED Code(s): 2335201930456741 Code(s): M66.0 - RUPTURE OF POPLITEAL CYST Status: Acute Current Visit: Yes (17) UTI (urinary tract infection) SNOMED Code(s): 58530119 Code(s): N39.0 - URINARY TRACT INFECTION, SITE NOT SPECIFIED Status: Acute Current Visit: Yes (18) Vitamin D deficiency SNOMED Code(s): 17428529 Code(s): E55.9 - VITAMIN D DEFICIENCY, UNSPECIFIED Status: Acute Current Visit: Yes - Problem List Review Problem List Initiated/Reviewed/Updated: Yes - Plan Plan:: Acute on chronic knee pain 2 hematomas on LLE and ruptured popliteal cyst Chronic low back pain Chronic opioid user Came in with worsening knee pain According to patient she hit it on the side of the bed Unable to ambulate or stand on her own Chronic fentanyl patch, just increased dose PLAN - Continue Fentanyl patch Acute hypoxemic respiratory failure Stage 2 diastolic heart failure O2 sats on admission 90% on RA and dropped to 84%--> Placed on NC Currently on 1L PLAN - Continue O2 supplementation - RT assess and treat - Manage HTN Hypertension BP on admission 138/51 Home meds, Losartan PLAN - Reconcile home meds once available - PRN hydralazine Previous DVT/ PE Previous GI bleed Presence of IVC filter Currently on warfarin IVC filter placed > 10 years ago Hb worse than in June PLAN - Monitor for bleeding - Continue warfarin Chronic kidney disease (CKD), stage III (moderate) Hyponatremia Microcytic anemia Likely 2/2 volume depletion Hb 06/2019 9.8, 8.2 on admission --> dropped to 7 and transfused 2u PRBC--> current 8.8 On iron supplementation at home PLAN - Monitor urine output - Renally dosed medications - Avoid nephrotoxic medications - Monitor electrolytes and adjust as needed - Venofer tomorrow Dyslipidemia On Pravastatin PLAN - Continue home pravastatin Hypothyroidism No acute issues PLAN - Continue home med once doses are available Vitamin D deficiency On vitamin d supplementation PLAN - Vitamin D level Polypharmacy 25 prescription medications Multiple central acting ones PLAN - Reconcile and adjust prior to discharge Morbid obesity with BMI of 50.0-59.9, adult Bedbound Hypoalbuminemia Likely from chronic deconditioning PLAN - PT and OT consult - Dietary consult and follow up Acute renal failure (ARF) on admission, resolved Acute urinary retention, resolved UTI 2/2 pansensitive E. coli, completed treatment PROPHYLAXIS DVT- Warfarin GI- not indicated CODE STATUS: DNR/DNI DISPOSITION: Patient admitted for pain control. Evaluated by PT and OT who are recommending placement to [facility], [facility] has accepted patient. Will be discharged to [facility] next week.
[2019-07-31] MEDS: Acetaminophen 325 MG Tab PO SCH ×2 (14:31→20:53)
--- NOTE | 2019-07-31 18:21 | PCM.PN ---
- General Info Date of Service: 07/30/19 Subjective Update: Feeling OK Still on NC Tolerating diet Slept OK - Patient Data Weight - Most Recent: 155.582 kg - Exam Quality Assessment: Supplemental Oxygen General: Alert, Oriented, Cooperative, No Acute Distress HEENT: Pupils Equal, Pupils Reactive, EOMI, Mucous Membr. Moist/[place] Neck: Supple Lungs: Decreased Breath Sounds. No: Crackles, Rales, Rhonchi, Wheezing Cardiovascular: Regular Rate, Regular Rhythm. No: Murmurs, Gallops, Rubs GI/Abdominal Exam: Soft, Non-Tender. No: Distended, Guarding, Rigid, Rebound Extremities: Pedal Edema, Slow Capillary Refill, Leg Pain Neurological: No New Focal Deficit Sepsis Event Note - Evaluation Sepsis Screening Result: No Definite Risk - Focused Exam Vital Signs: Vital Signs Temp Pulse Resp BP Pulse Ox 07/31/19 14:19 98.2 F 68 16 146/59 H 96 07/31/19 08:20 73 140/64 07/31/19 08:19 98.1 F 73 16 140/64 93 L Date Exam was Performed: 07/31/19 Time Exam was Performed: 19:28 - Problem List & Annotations (1) Acute hypoxemic respiratory failure SNOMED Code(s): 548888228 Code(s): J96.01 - ACUTE RESPIRATORY FAILURE WITH HYPOXIA Status: Acute Current Visit: Yes (2) Acute renal failure (ARF) SNOMED Code(s): 87858590 Code(s): N17.9 - ACUTE KIDNEY FAILURE, UNSPECIFIED Status: Acute Current Visit: Yes Qualifiers: Acute renal failure type: unspecified Qualified Code(s): N17.9 - Acute kidney failure, unspecified (3) Acute urinary retention SNOMED Code(s): 847511675 Code(s): R33.8 - OTHER RETENTION OF URINE Status: Acute Current Visit: Yes (4) Bedbound SNOMED Code(s): 150089700 Code(s): Z74.01 - BED CONFINEMENT STATUS Status: Acute Current Visit: Yes (5) Chronic kidney disease (CKD), stage III (moderate) SNOMED Code(s): 460685749 Code(s): N18.3 - CHRONIC KIDNEY DISEASE, STAGE 3 (MODERATE) Status: Acute Current Visit: Yes (6) Chronic knee pain SNOMED Code(s): 99346609 Code(s): M25.569 - PAIN IN UNSPECIFIED KNEE; G89.29 - OTHER CHRONIC PAIN Status: Acute Current Visit: Yes (7) Diastolic heart failure SNOMED Code(s): 749851613 Code(s): I50.30 - UNSPECIFIED DIASTOLIC (CONGESTIVE) HEART FAILURE Status: Acute Current Visit: Yes (8) Dyslipidemia SNOMED Code(s): 525799581 Code(s): E78.5 - HYPERLIPIDEMIA, UNSPECIFIED Status: Acute Current Visit : Yes (9) Hematoma SNOMED Code(s): 667325868 Code(s): T14.8XXA - OTHER INJURY OF UNSPECIFIED BODY REGION, INITIAL ENCOUNTER Status: Acute Current Visit: Yes (10) Hypertension SNOMED Code(s): 88415842 Code(s): I10 - ESSENTIAL (PRIMARY) HYPERTENSION Status: Acute Current Visit: Yes (11) Hypoalbuminemia SNOMED Code(s): 612515728 Code(s): E88.09 - OTH DISORDERS OF PLASMA-PROTEIN METABOLISM, NEC Status: Acute Current Visit: Yes (12) Hyponatremia SNOMED Code(s): 57514537 Code(s): E87.1 - HYPO-OSMOLALITY AND HYPONATREMIA Status: Acute Current Visit: Yes (13) Hypothyroidism SNOMED Code(s): 73196319 Code(s): E03.9 - HYPOTHYROIDISM, UNSPECIFIED Status: Acute Current Visit : Yes (14) Knee pain, acute SNOMED Code(s): 68059944, 850106539 Code(s): M25.569 - PAIN IN UNSPECIFIED KNEE Status: Acute Current Visit: Yes (15) Knee pain, left SNOMED Code(s): 37698033 Code(s): M25.562 - PAIN IN LEFT KNEE Status: Acute Current Visit: Yes (16) Low back pain SNOMED Code(s): 549677784 Code(s): M54.5 - LOW BACK PAIN Status: Acute Current Visit: Yes Qualifiers: Chronicity: acute Back pain laterality: bilateral Sciatica presence: without sciatica Qualified Code(s): M54.5 - Low back pain (17) Microcytic anemia SNOMED Code(s): 821279979 Code(s): D50.9 - IRON DEFICIENCY ANEMIA, UNSPECIFIED Status: Acute Current Visit: Yes (18) Polypharmacy SNOMED Code(s): 029547961 Code(s): Z79.899 - OTHER SKILLED NURSING (CURRENT) DRUG THERAPY Status: Acute Current Visit: Yes (19) Presence of IVC filter SNOMED Code(s): 970822543550424, 578846581035037 Code(s): Z95.828 - PRESENCE OF OTHER VASCULAR IMPLANTS AND GRAFTS Status: Acute Current Visit: Yes (20) Rupture of popliteal cyst of left knee region SNOMED Code(s): 3399682141159241 Code(s): M66.0 - RUPTURE OF POPLITEAL CYST Status: Acute Current Visit: Yes (21) UTI (urinary tract infection) SNOMED Code(s): 79712375 Code(s): N39.0 - URINARY TRACT INFECTION, SITE NOT SPECIFIED Status: Acute Current Visit: Yes (22) Vitamin D deficiency SNOMED Code(s): 84506959 Code(s): E55.9 - VITAMIN D DEFICIENCY, UNSPECIFIED Status: Acute Current Visit: Yes - Problem List Review Problem List Initiated/Reviewed/Updated: Yes - Plan Plan:: Acute on chronic knee pain 2 hematomas on LLE and ruptured popliteal cyst Chronic low back pain Chronic opioid user Came in with worsening knee pain According to patient she hit it on the side of the bed Unable to ambulate or stand on her own Chronic fentanyl patch, just increased dose PLAN - Continue Fentanyl patch Acute hypoxemic respiratory failure Stage 2 diastolic heart failure O2 sats on admission 90% on RA and dropped to 84%--> Placed on NC Currently on 1L PLAN - Continue O2 supplementation - RT assess and treat - Manage HTN Hypertension BP on admission 138/51 Home meds, Losartan PLAN - Reconcile home meds once available - PRN hydralazine Previous DVT/ PE Previous GI bleed Presence of IVC filter Currently on warfarin IVC filter placed > 10 years ago Hb worse than in June PLAN - Monitor for bleeding - Continue warfarin Chronic kidney disease (CKD), stage III (moderate) Hyponatremia Microcytic anemia Likely 2/2 volume depletion Hb 06/2019 9.8, 8.2 on admission --> dropped to 7 and transfused 2u PRBC--> current 8.8 On iron supplementation at home PLAN - Monitor urine output - Renally dosed medications - Avoid nephrotoxic medications - Monitor electrolytes and adjust as needed Dyslipidemia On Pravastatin PLAN - Continue home pravastatin Hypothyroidism No acute issues PLAN - Continue home med once doses are available Vitamin D deficiency On vitamin d supplementation PLAN - Vitamin D level Polypharmacy 25 prescription medications Multiple central acting ones PLAN - Reconcile and adjust prior to discharge Morbid obesity with BMI of 50.0-59.9, adult Bedbound Hypoalbuminemia Likely from chronic deconditioning PLAN - PT and OT consult - Dietary consult and follow up Acute renal failure (ARF) on admission, resolved Acute urinary retention, resolved UTI 2/2 pansensitive E. coli, completed treatment PROPHYLAXIS DVT- Warfarin GI- not indicated CODE STATUS: DNR/DNI DISPOSITION: Patient will be admitted for pain control, evaluation by PT and OT for placement recommendations. Currently patient lives at home, granddaughter is technical healthcare consultant.
[2019-07-31] MEDS: diphenhydrAMINE 50 MG Cap PO SCH (20:54)
[2019-08-01] MEDS: Levothyroxine 100 MCG Tab PO SCH (06:11)
[2019-08-01] MEDS: Metoprolol Succinate 50 MG Tab.ER PO SCH (08:41)
[2019-08-01] MEDS: Polyethylene Glycol 3350 Powder 17 GM Packet PO SCH (08:41)
[2019-08-01] MEDS: Gabapentin 100 MG Cap PO SCH ×3 (08:41→21:04)
[2019-08-01] MEDS: Diltiazem 240 MG Cap.ER PO SCH (08:41)
[2019-08-01] MEDS: Nystatin Topical Powder 15 GM Bottle TOP SCH ×4 (08:42→21:04)
[2019-08-01] MEDS: Acetaminophen 325 MG Tab PO SCH ×2 (13:21→21:05)
[2019-08-01] MEDS: Acetaminophen/HYDROcodone 325-5 MG Tab PO PRN (16:31)
[2019-08-01] MEDS: diphenhydrAMINE 50 MG Cap PO SCH (21:04)
--- NOTE | 2019-08-01 21:44 | PCM.PN ---
- General Info Date of Service: 08/01/19 Subjective Update: Slept ok Tolerating diet Pain is under control Thinks she could eat better - Patient Data Vitals - Most Recent: Last Vital Signs Temp 98.2 F 08/01/19 14:27 Pulse 70 08/01/19 14:27 Resp 18 08/01/19 14:27 BP 135/74 08/01/19 14:27 Pulse Ox 95 08/01/19 14:27 Weight - Most Recent: 156.671 kg - Exam General: Alert, Oriented, Cooperative, No Acute Distress HEENT: Pupils Equal, Pupils Reactive, EOMI, Mucous Membr. Moist/[place] Lungs: Clear to Auscultation, Decreased Breath Sounds. No: Crackles, Rales, Rhonchi, Wheezing Cardiovascular: Regular Rate, Regular Rhythm. No: Murmurs, Gallops, Rubs GI/Abdominal Exam: Soft, Non-Tender. No: Guarding, Rigid, Rebound Extremities: Limited Range of Motion Sepsis Event Note - Evaluation Sepsis Screening Result: No Definite Risk - Focused Exam Vital Signs: Vital Signs Temp Pulse Resp BP Pulse Ox 08/01/19 14:27 98.2 F 70 18 135/74 95 Date Exam was Performed: 08/02/19 Time Exam was Performed: 16:59 - Problem List & Annotations (1) Acute hypoxemic respiratory failure SNOMED Code(s): 942969815 Code(s): J96.01 - ACUTE RESPIRATORY FAILURE WITH HYPOXIA Status: Acute Current Visit: Yes (2) Acute renal failure (ARF) SNOMED Code(s): 97264988 Code(s): N17.9 - ACUTE KIDNEY FAILURE, UNSPECIFIED Status: Acute Current Visit: Yes Qualifiers: Acute renal failure type: unspecified Qualified Code(s): N17.9 - Acute kidney failure, unspecified (3) Acute urinary retention SNOMED Code(s): 773244338 Code(s): R33.8 - OTHER RETENTION OF URINE Status: Acute Current Visit: Yes (4) Bedbound SNOMED Code(s): 804218800 Code(s): Z74.01 - BED CONFINEMENT STATUS Status: Acute Current Visit: Yes (5) Chronic kidney disease (CKD), stage III (moderate) SNOMED Code(s): 397284378 Code(s): N18.3 - CHRONIC KIDNEY DISEASE, STAGE 3 (MODERATE) Status: Acute Current Visit: Yes (6) Chronic knee pain SNOMED Code(s): 54005685 Code(s): M25.569 - PAIN IN UNSPECIFIED KNEE; G89.29 - OTHER CHRONIC PAIN Status: Acute Current Visit: Yes (7) Diastolic heart failure SNOMED Code(s): 454122399 Code(s): I50.30 - UNSPECIFIED DIASTOLIC (CONGESTIVE) HEART FAILURE Status: Acute Current Visit: Yes (8) Dyslipidemia SNOMED Code(s): 427365174 Code(s): E78.5 - HYPERLIPIDEMIA, UNSPECIFIED Status: Acute Current Visit : Yes (9) Hematoma SNOMED Code(s): 776298253 Code(s): T14.8XXA - OTHER INJURY OF UNSPECIFIED BODY REGION, INITIAL ENCOUNTER Status: Acute Current Visit: Yes (10) Hypertension SNOMED Code(s): 87906534 Code(s): I10 - ESSENTIAL (PRIMARY) HYPERTENSION Status: Acute Current Visit: Yes (11) Hypoalbuminemia SNOMED Code(s): 434393848 Code(s): E88.09 - OTH DISORDERS OF PLASMA-PROTEIN METABOLISM, NEC Status: Acute Current Visit: Yes (12) Hyponatremia SNOMED Code(s): 14442413 Code(s): E87.1 - HYPO-OSMOLALITY AND HYPONATREMIA Status: Acute Current Visit: Yes (13) Microcytic anemia SNOMED Code(s): 674156565 Code(s): D50.9 - IRON DEFICIENCY ANEMIA, UNSPECIFIED Status: Acute Current Visit: Yes (14) Polypharmacy SNOMED Code(s): 542962444 Code(s): Z79.899 - OTHER [facility] (CURRENT) DRUG THERAPY Status: Acute Current Visit: Yes (15) Presence of IVC filter SNOMED Code(s): 096094608201943, 584602901437598 Code(s): Z95.828 - PRESENCE OF OTHER VASCULAR IMPLANTS AND GRAFTS Status: Acute Current Visit: Yes (16) Rupture of popliteal cyst of left knee region SNOMED Code(s): 8468492402590402 Code(s): M66.0 - RUPTURE OF POPLITEAL CYST Status: Acute Current Visit: Yes (17) UTI (urinary tract infection) SNOMED Code(s): 90918224 Code(s): N39.0 - URINARY TRACT INFECTION, SITE NOT SPECIFIED Status: Acute Current Visit: Yes (18) Vitamin D deficiency SNOMED Code(s): 98452309 Code(s): E55.9 - VITAMIN D DEFICIENCY, UNSPECIFIED Status: Acute Current Visit: Yes - Problem List Review Problem List Initiated/Reviewed/Updated: Yes - Plan Plan:: Acute on chronic knee pain 2 hematomas on LLE and ruptured popliteal cyst Chronic low back pain Chronic opioid user Came in with worsening knee pain According to patient she hit it on the side of the bed Unable to ambulate or stand on her own Chronic fentanyl patch, just increased dose PLAN - Continue Fentanyl patch Acute hypoxemic respiratory failure Stage 2 diastolic heart failure O2 sats on admission 90% on RA and dropped to 84%--> Placed on NC Sat >93% on 1L NC PLAN - Continue O2 supplementation - RT assess and treat - Manage HTN Hypertension BP trend 123-146/59-79 Home meds, Losartan PLAN - Reconcile home meds once available - PRN hydralazine Previous DVT/ PE Previous GI bleed Presence of IVC filter Currently on warfarin IVC filter placed > 10 years ago Hb worse than in June PLAN - Monitor for bleeding - Continue warfarin Chronic kidney disease (CKD), stage III (moderate) Hyponatremia Microcytic anemia Likely 2/2 volume depletion Hb 06/2019 9.8, 8.2 on admission --> dropped to 7 and transfused 2u PRBC--> current 8.8 On iron supplementation at home PLAN - Monitor urine output - Renally dosed medications - Avoid nephrotoxic medications - Monitor electrolytes and adjust as needed - Venofer tomorrow Dyslipidemia On Pravastatin PLAN - Continue home pravastatin Hypothyroidism No acute issues PLAN - Continue home med once doses are available Vitamin D deficiency On vitamin d supplementation PLAN - Vitamin D level Polypharmacy 25 prescription medications Multiple central acting ones PLAN - Reconcile and adjust prior to discharge Morbid obesity with BMI of 50.0-59.9, adult Bedbound Hypoalbuminemia Likely from chronic deconditioning PLAN - PT and OT consult - Dietary consult and follow up Acute renal failure (ARF) on admission, resolved Acute urinary retention, resolved UTI 2/2 pansensitive E. coli, completed treatment PROPHYLAXIS DVT- Warfarin GI- not indicated CODE STATUS: DNR/DNI DISPOSITION: Patient admitted for pain control. Evaluated by PT and OT [facility], [facility] patient. Will be discharged to [facility] next week.
[2019-08-02] MEDS: Levothyroxine 100 MCG Tab PO SCH (06:02)
[2019-08-02] MEDS: Polyethylene Glycol 3350 Powder 17 GM Packet PO SCH (08:15)
[2019-08-02] MEDS: Metoprolol Succinate 50 MG Tab.ER PO SCH (08:15)
[2019-08-02] MEDS: Diltiazem 240 MG Cap.ER PO SCH (08:16)
[2019-08-02] MEDS: Gabapentin 100 MG Cap PO SCH ×3 (08:16→21:58)
[2019-08-02] MEDS: Nystatin Topical Powder 15 GM Bottle TOP SCH ×4 (08:17→21:58)
[2019-08-02] MEDS: Acetaminophen/HYDROcodone 325-5 MG Tab PO PRN (14:26)
[2019-08-02] MEDS: Acetaminophen 325 MG Tab PO SCH ×2 (14:27→21:55)
--- NOTE | 2019-08-02 16:59 | PCM.PN ---
- General Info Date of Service: 08/02/19 Subjective Update: Pain controlled Tolerating diet Slept OK - Patient Data Vitals - Most Recent: Last Vital Signs Temp 98.1 F 08/02/19 14:22 Pulse 61 08/02/19 14:22 Resp 20 08/02/19 14:22 BP 158/59 H 08/02/19 14:22 Pulse Ox 95 08/02/19 14:22 Weight - Most Recent: 157.034 kg - Exam General: Alert, Oriented, Cooperative, No Acute Distress HEENT: Pupils Equal, Pupils Reactive, EOMI, Mucous Membr. Moist/[place] Neck: Supple Lungs: Clear to Auscultation, Decreased Breath Sounds. No: Crackles, Rales, Rhonchi, Wheezing Cardiovascular: Regular Rate, Regular Rhythm. No: Murmurs, Gallops, Rubs GI/Abdominal Exam: Soft, Distended. No: Guarding, Rigid, Rebound, Tender Extremities: Pedal Edema, Slow Capillary Refill, Limited Range of Motion Sepsis Event Note - Evaluation Sepsis Screening Result: No Definite Risk - Focused Exam Vital Signs: Vital Signs Temp Pulse Resp BP Pulse Ox 08/02/19 14:22 98.1 F 61 20 158/59 H 95 08/02/19 08:15 74 159/50 H 08/02/19 07:57 98.1 F 74 20 159/50 H 93 L 08/02/19 05:57 98.8 F 77 13 139/65 95 Date Exam was Performed: 08/02/19 Time Exam was Performed: 17:12 - Problem List & Annotations (1) Acute hypoxemic respiratory failure SNOMED Code(s): 682039125 Code(s): J96.01 - ACUTE RESPIRATORY FAILURE WITH HYPOXIA Status: Acute Current Visit: Yes (2) Acute renal failure (ARF) SNOMED Code(s): 80570542 Code(s): N17.9 - ACUTE KIDNEY FAILURE, UNSPECIFIED Status: Acute Current Visit: Yes Qualifiers: Acute renal failure type: unspecified Qualified Code(s): N17.9 - Acute kidney failure, unspecified (3) Acute urinary retention SNOMED Code(s): 475001234 Code(s): R33.8 - OTHER RETENTION OF URINE Status: Acute Current Visit: Yes (4) Bedbound SNOMED Code(s): 932071419 Code(s): Z74.01 - BED CONFINEMENT STATUS Status: Acute Current Visit: Yes (5) Chronic kidney disease (CKD), stage III (moderate) SNOMED Code(s): 191200850 Code(s): N18.3 - CHRONIC KIDNEY DISEASE, STAGE 3 (MODERATE) Status: Acute Current Visit: Yes (6) Chronic knee pain SNOMED Code(s): 39099690 Code(s): M25.569 - PAIN IN UNSPECIFIED KNEE; G89.29 - OTHER CHRONIC PAIN Status: Acute Current Visit: Yes (7) Diastolic heart failure SNOMED Code(s): 066503411 Code(s): I50.30 - UNSPECIFIED DIASTOLIC (CONGESTIVE) HEART FAILURE Status: Acute Current Visit: Yes (8) Dyslipidemia SNOMED Code(s): 013044825 Code(s): E78.5 - HYPERLIPIDEMIA, UNSPECIFIED Status: Acute Current Visit : Yes (9) Hematoma SNOMED Code(s): 622092085 Code(s): T14.8XXA - OTHER INJURY OF UNSPECIFIED BODY REGION, INITIAL ENCOUNTER Status: Acute Current Visit: Yes (10) Hypertension SNOMED Code(s): 58684102 Code(s): I10 - ESSENTIAL (PRIMARY) HYPERTENSION Status: Acute Current Visit: Yes (11) Hypoalbuminemia SNOMED Code(s): 731431881 Code(s): E88.09 - OTH DISORDERS OF PLASMA-PROTEIN METABOLISM, NEC Status: Acute Current Visit: Yes (12) Hyponatremia SNOMED Code(s): 21234303 Code(s): E87.1 - HYPO-OSMOLALITY AND HYPONATREMIA Status: Acute Current Visit: Yes (13) Microcytic anemia SNOMED Code(s): 145089869 Code(s): D50.9 - IRON DEFICIENCY ANEMIA, UNSPECIFIED Status: Acute Current Visit: Yes (14) Polypharmacy SNOMED Code(s): 642472833 Code(s): Z79.899 - OTHER PRISON (CURRENT) DRUG THERAPY Status: Acute Current Visit: Yes (15) Presence of IVC filter SNOMED Code(s): 192508522976654, 214867669413154 Code(s): Z95.828 - PRESENCE OF OTHER VASCULAR IMPLANTS AND GRAFTS Status: Acute Current Visit: Yes (16) Rupture of popliteal cyst of left knee region SNOMED Code(s): 2903987812583273 Code(s): M66.0 - RUPTURE OF POPLITEAL CYST Status: Acute Current Visit: Yes (17) UTI (urinary tract infection) SNOMED Code(s): 88780464 Code(s): N39.0 - URINARY TRACT INFECTION, SITE NOT SPECIFIED Status: Acute Current Visit: Yes (18) Vitamin D deficiency SNOMED Code(s): 31756763 Code(s): E55.9 - VITAMIN D DEFICIENCY, UNSPECIFIED Status: Acute Current Visit: Yes - Problem List Review Problem List Initiated/Reviewed/Updated: Yes - Plan Plan:: Acute on chronic knee pain 2 hematomas on LLE and ruptured popliteal cyst Chronic low back pain Chronic opioid user Came in with worsening knee pain According to patient she hit it on the side of the bed Unable to ambulate or stand on her own Chronic fentanyl patch, just increased dose PLAN - Continue Fentanyl patch Acute hypoxemic respiratory failure Stage 2 diastolic heart failure O2 sats on admission 90% on RA and dropped to 84%--> Placed on NC Sat >93% on 0.5L NC PLAN - Continue O2 supplementation - RT assess and treat - Manage HTN Hypertension BP trend 123-149/73-79 Home meds, Losartan PLAN - Reconcile home meds once available - PRN hydralazine Previous DVT/ PE Previous GI bleed Presence of IVC filter Currently on warfarin IVC filter placed > 10 years ago Hb worse than in June PLAN - Monitor for bleeding - Continue warfarin Chronic kidney disease (CKD), stage III (moderate) Hyponatremia Microcytic anemia Likely 2/2 volume depletion Hb 06/2019 9.8, 8.2 on admission --> dropped to 7 and transfused 2u PRBC--> current 8.8 On iron supplementation at home PLAN - Monitor urine output - Renally dosed medications - Avoid nephrotoxic medications - Monitor electrolytes and adjust as needed - Venofer tomorrow Dyslipidemia On Pravastatin PLAN - Continue home pravastatin Hypothyroidism No acute issues PLAN - Continue home med once doses are available Vitamin D deficiency, resolved On vitamin d supplementation PLAN - Discontinue vitamin D Polypharmacy 25 prescription medications Multiple central acting ones PLAN - Reconcile and adjust prior to discharge Morbid obesity with BMI of 50.0-59.9, adult Bedbound Hypoalbuminemia Likely from chronic deconditioning PLAN - PT and OT consult - Dietary consult and follow up Acute renal failure (ARF) on admission, resolved Acute urinary retention, resolved UTI 2/2 pansensitive E. coli, completed treatment PROPHYLAXIS DVT- Warfarin GI- not indicated CODE STATUS: DNR/DNI DISPOSITION: Patient admitted for pain control. Evaluated by PT and OT who are recommending placement to skilled nursing, [facility] accepted patient. Will be discharged to [facility] next week.
[2019-08-02] MEDS: diphenhydrAMINE 50 MG Cap PO SCH (21:57)
[2019-08-03] MEDS: Levothyroxine 100 MCG Tab PO SCH (05:19)
[2019-08-03] MEDS: Metoprolol Succinate 50 MG Tab.ER PO SCH (08:30)
[2019-08-03] MEDS: Polyethylene Glycol 3350 Powder 17 GM Packet PO SCH (08:30)
[2019-08-03] MEDS: Diltiazem 240 MG Cap.ER PO SCH (08:31)
[2019-08-03] MEDS: Nystatin Topical Powder 15 GM Bottle TOP SCH (08:31)
[2019-08-03] MEDS: Gabapentin 100 MG Cap PO SCH (08:31)
[2019-08-03] MEDS: fentaNYL 50 MCG/HR Transdermal Patch TRDERM SCH (08:34)
[2019-08-03] MEDS: fentaNYL 12 MCG/HR Transdermal Patch TRDERM SCH (08:35)
[2019-08-03 08:36] VITALS: BP 150/48; PULSE 75
--- NOTE | 2019-08-03 09:17 | PCM.DCSUM1 ---
Discharge Summary - Hospital Course HPI Initial Comments: Patient is an 79-year-old female who presents to the ED via [facility] for the evaluation of left knee pain and lower back pain. 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 Patient states that she is not able to move her knee much at all, as it is very very painful. She does note low back pain as well, she states the knee pain hurts worse than the back pain. She notes that she is on a 50 mcg fentanyl patch but recently got up to 62.5. And she also takes Percocet on a regular basis. Ambulance was called, as she could not get out of bed today due to the pain. The patient denies any fever/ chills, chest pain/shortness of breath, nausea/vomiting/diarrhea, dysuria/ frequency/urgency, the patient further denies any sort of open sores other than one on her left heel which is being overseen by home health nursing and her clinic providers. She does state that she is on warfarin as well, and her last INR done Saturday was 1.9. There is one bruise noted on the anterior left knee, however the patient denies any trauma to the area. . Diagnosis: Stroke: No - Discharge Data Discharge Date: 08/03/19 Discharge Disposition: DC/Tfer to SNF 03 Condition: Good - Referral to Home Health Primary Care Physician: Sandi Stevenson NP - Discharge Diagnosis/Problem(s) (1) Acute hypoxemic respiratory failure SNOMED Code(s): 387893178 ICD Code: J96.01 - ACUTE RESPIRATORY FAILURE WITH HYPOXIA Status: Acute (2) Acute renal failure (ARF) SNOMED Code(s): 22917599 ICD Code: N17.9 - ACUTE KIDNEY FAILURE, UNSPECIFIED Status: Resolved Qualifiers: Acute renal failure type: unspecified Qualified Code(s): N17.9 - Acute kidney failure, unspecified (3) Acute urinary retention SNOMED Code(s): 070438214 ICD Code: R33.8 - OTHER RETENTION OF URINE Status: Resolved (4) Bedbound SNOMED Code(s): 796102886 ICD Code: Z74.01 - BED CONFINEMENT STATUS Status: Chronic (5) Chronic kidney disease (CKD), stage III (moderate) SNOMED Code(s): 786943476 ICD Code: N18.3 - CHRONIC KIDNEY DISEASE, STAGE 3 (MODERATE) Status: Chronic (6) Chronic knee pain SNOMED Code(s): 56644386 ICD Code: M25.569 - PAIN IN UNSPECIFIED KNEE; G89.29 - OTHER CHRONIC PAIN Status: Acute (7) Diastolic heart failure SNOMED Code(s): 442284708 ICD Code: I50.30 - UNSPECIFIED DIASTOLIC (CONGESTIVE) HEART FAILURE Status : Chronic (8) Dyslipidemia SNOMED Code(s): 098957245 ICD Code: E78.5 - HYPERLIPIDEMIA, UNSPECIFIED Status: Chronic (9) Hematoma SNOMED Code(s): 105503829 ICD Code: T14.8XXA - OTHER INJURY OF UNSPECIFIED BODY REGION, INITIAL ENCOUNTER Status: Acute (10) Hypertension SNOMED Code(s): 94719449 ICD Code: I10 - ESSENTIAL (PRIMARY) HYPERTENSION Status: Chronic (11) Hypoalbuminemia SNOMED Code(s): 072874847 ICD Code: E88.09 - OTH DISORDERS OF PLASMA-PROTEIN METABOLISM, NEC Status: Chronic (12) Hyponatremia SNOMED Code(s): 00022330 ICD Code: E87.1 - HYPO-OSMOLALITY AND HYPONATREMIA Status: Resolved (13) Microcytic anemia SNOMED Code(s): 448517579 ICD Code: D50.9 - IRON DEFICIENCY ANEMIA, UNSPECIFIED Status: Chronic (14) Polypharmacy SNOMED Code(s): 354556311 ICD Code: Z79.899 - OTHER RN CASE MGR (CURRENT) DRUG THERAPY Status: Chronic (15) Presence of IVC filter SNOMED Code(s): 237446545585060, 839688619959308 ICD Code: Z95.828 - PRESENCE OF OTHER VASCULAR IMPLANTS AND GRAFTS Status: Chronic (16) Rupture of popliteal cyst of left knee region SNOMED Code(s): 4578119806565442 ICD Code: M66.0 - RUPTURE OF POPLITEAL CYST Status: Acute (17) UTI (urinary tract infection) SNOMED Code(s): 36322925 ICD Code: N39.0 - URINARY TRACT INFECTION, SITE NOT SPECIFIED Status: Resolved (18) Vitamin D deficiency SNOMED Code(s): 84476271 ICD Code: E55.9 - VITAMIN D DEFICIENCY, UNSPECIFIED Status: Chronic - Patient Summary/Data Consults: Consultations 07/22/19 21:50 Consult to Case Management/Intensive Care Unit Registered Nurse [CONS] Routine OT Evaluation and Treatment [CONS] Routine PT Evaluation and Treatment [CONS] Routine Hospital Course: CHRIS on admission with resolution throughout hospitalization, back to baseline prior to discharge. Found to have large hematoma on left knee, likely causing of pain. Had hypoxemia episode that required placement of NC, tapered down to 1L on discharge UA pathologic on admission, pansensitive E. coli isolation completed treatment for 3 days episode of urinary retention that required Singh catheter placement with resolution, discharged without Singh Extended hospital stay due to difficulty placing patient - Patient Instructions Activity: As Tolerated Notify Provider of: Fever, Increased Pain, Swelling and Redness - Discharge Plan *PRESCRIPTION DRUG MONITORING PROGRAM REVIEWED*: Yes *COPY OF PRESCRIPTION DRUG MONITORING REPORT IN PATIENT EWA: No Prescriptions/Med Rec: Acetaminophen/HYDROcodone [[place] 325-5 MG] 1 tab PO Q4H PRN #24 tablet PRN Reason: Pain diphenhydrAMINE [Benadryl] 50 mg PO BEDTIME PRN #14 cap PRN Reason: Insomnia fentaNYL [Fentanyl] 62.5 mcg TD Q72H #5 patch.td72 Gabapentin [Neurontin] 100 mg PO TID #15 capsule LORazepam [Ativan] 0.5 mg PO DAILY PRN #7 tablet PRN Reason: Anxiety Nystatin 1 each MC DAILY #7 powder.ea. Polyethylene Glycol 3350 [Gavilax] 17 gm PO BEDTIME #30 powd.pack Home Medications: Home Meds Aspirin [Ivan Chewable Aspirin] 81 mg PO DAILY 01/02/16 [History] Pravastatin Sodium [Pravastatin (Pravachol)] 40 mg PO DAILY 01/02/16 [History] Ubidecarenone [COQ-10] 100 mg PO DAILY 01/02/16 [History] dilTIAZem HCl [Diltiazem 24Hr ER (Cd)] 240 mg PO DAILY 01/02/16 [History] Vitamin B Complex [Super B-50 Complex] 1 tab PO DAILY 10/03/18 [History] Ascorbate Calcium [Vitamin C] 1,000 mg PO DAILY 01/11/19 [History] Metoprolol Succinate 50 mg PO DAILY 01/11/19 [History] Omeprazole 40 mg PO DAILY 01/11/19 [History] Sennosides/Docusate Sodium [Senna Plus Tablet] 1 each PO DAILY PRN 01/11/19 [ History] Acetaminophen [Acetaminophen 8 Hour] 650 mg PO 1400 07/22/19 [History] Acetaminophen/Diphenhydramine [Acetaminophen Pm Caplet] 500 mg PO BEDTIME [History] B2/Vits A,C,E/Lut/Zeaxanth/Min [Icaps] 1 tab PO DAILY 07/22/19 [History] Cholecalciferol (Vitamin D3) [Vitamin D3] 125 mcg PO DAILY 07/22/19 [History] Furosemide [Lasix] 40 mg PO BID 07/22/19 [History] Iron,Carbonyl/Ascorbic Acid [Iron 100-Vitamin C Tablet] 2 tab PO BID 07/22/19 [ History] Levothyroxine [Synthroid] 100 mcg PO DAILY 07/22/19 [History] Magnesium Citrate 150 mg PO BID 07/22/19 [History] Multivitamin [Multivitamins] 2 tab PO DAILY 07/22/19 [History] [place]-3S/DHA/Epa/Fish Oil [[place]-3 Fish Oil 1,000 mg Sfgl] 2 cap PO DAILY [History] Losartan [Cozaar] 50 mg PO DAILY 07/28/19 [History] Acetaminophen/HYDROcodone [[place] 325-5 MG] 1 tab PO Q4H PRN #24 tablet 08/04/19 [Rx] Gabapentin [Neurontin] 100 mg PO TID #15 capsule 08/04/19 [Rx] LORazepam [Ativan] 0.5 mg PO DAILY PRN #7 tablet 08/04/19 [Rx] Nystatin 1 each MC DAILY #7 powder.ea. 08/04/19 [Rx] Polyethylene Glycol 3350 [Gavilax] 17 gm PO BEDTIME #30 powd.pack 08/04/19 [Rx] diphenhydrAMINE [Benadryl] 50 mg PO BEDTIME PRN #14 cap 08/04/19 [Rx] fentaNYL [Fentanyl] 62.5 mcg TD Q72H #5 patch.td72 08/04/19 [Rx] Oxygen Flow Rate (L/min): 1 (0.5-1LPM) Maintain SpO2% greater than: 88 Patient Handouts: Knee Pain, Adult, Heart Failure Forms: ED Department Discharge Referrals: Kaushal Lam MD [Physician] - 08/25/19 12:00 pm (You have an apt. with Dr. Lam on at 1200pm, please check in at 1130.) Sandi Stevenson NP [Primary Care Provider] - 08/10/19 10:45 am (Please follow up with Sandi Stevenson on SaturdayAug.10 at 1045am.) - Discharge Summary/Plan Comment DC Time >30 min.: Yes - General Info Date of Service: 08/03/19 Subjective Update: Feeling great Slept OK Tolerating diet BM today - Patient Data Vitals - Most Recent: Last Vital Signs Temp 98.8 F 08/03/19 05:17 Pulse 75 08/03/19 08:30 Resp 12 08/03/19 05:17 BP 150/48 H 08/03/19 08:30 Pulse Ox 92 L 08/03/19 05:17 Weight - Most Recent: 155.083 kg - Exam Physical Findings Comments:: General: Alert, Oriented, Cooperative, No Acute Distress HEENT: Pupils Equal, Pupils Reactive, EOMI, Mucous Membr. Moist/[place] Neck: Supple Lungs: Clear to Auscultation, Decreased Breath Sounds. No: Crackles, Rales, Rhonchi, Wheezing Cardiovascular: Regular Rate, Regular Rhythm. No: Murmurs, Gallops, Rubs GI/Abdominal Exam: Soft, Distended. No: Guarding, Rigid, Rebound, Tender Extremities: Pedal Edema, Slow Capillary Refill, Limited Range of Motion
== END 2019-08-03 11:05 | DRG 557 ==
LOC: JD.ED 16:20 → JD.MS 21:06
PROVIDERS: ADMIT Internal Medicine; ATTEND Internal Medicine
PROC: 30233N1 Transfusion of Nonautologous Red Blood Cells into Peripheral Vein, Percutaneous Approach (ICD-10-PCS; principal; 2019-07-24)
DX: M66.0 Rupture of popliteal cyst (principal); J96.01 Acute respiratory failure with hypoxia; I13.0 Hypertensive heart and chronic kidney disease with heart failure and stage 1 through stage 4 chronic kidney disease, or unspecified chronic kidney disease; H54.7 Unspecified visual loss; E78.00 Pure hypercholesterolemia, unspecified; I10 Essential (primary) hypertension; N17.9 Acute kidney failure, unspecified; E87.1 Hypo-osmolality and hyponatremia; Z68.43 Body mass index [BMI] 50.0-59.9, adult; N39.0 Urinary tract infection, site not specified; M19.90 Unspecified osteoarthritis, unspecified site; I50.30 Unspecified diastolic (congestive) heart failure; F32.9 Major depressive disorder, single episode, unspecified; E66.9 Obesity, unspecified; E53.8 Deficiency of other specified B group vitamins; G62.9 Polyneuropathy, unspecified; Z98.49 Cataract extraction status, unspecified eye; Z90.49 Acquired absence of other specified parts of digestive tract; Z66 Do not resuscitate; E88.09 Other disorders of plasma-protein metabolism, not elsewhere classified; M79.81 Nontraumatic hematoma of soft tissue; E55.9 Vitamin D deficiency, unspecified; E03.9 Hypothyroidism, unspecified; N18.3 Chronic kidney disease, stage 3 (moderate); G89.29 Other chronic pain; M54.5 Low back pain; G47.33 Obstructive sleep apnea (adult) (pediatric); E66.01 Morbid (severe) obesity due to excess calories; D50.9 Iron deficiency anemia, unspecified; F11.90 Opioid use, unspecified, uncomplicated; E11.42 Type 2 diabetes mellitus with diabetic polyneuropathy; E11.22 Type 2 diabetes mellitus with diabetic chronic kidney disease; N28.1 Cyst of kidney, acquired; G47.30 Sleep apnea, unspecified; R33.8 Other retention of urine; I34.0 Nonrheumatic mitral (valve) insufficiency; B96.20 Unspecified Escherichia coli [E. coli] as the cause of diseases classified elsewhere; Z79.82 Long term (current) use of aspirin; Z95.828 Presence of other vascular implants and grafts; Z79.899 Other long term (current) drug therapy; Z74.01 Bed confinement status; Z86.718 Personal history of other venous thrombosis and embolism; Z86.711 Personal history of pulmonary embolism; Z79.01 Long term (current) use of anticoagulants; Z79.890 Hormone replacement therapy
CPT/HCPCS: 36415; 51701; 71045; 80053; 81001; 83880; 85007; 85027; 85610; 85730; 86850; 86900; 86901; 86922 ×2; 93971; 96374; 99285; J1170; 36430; 51702; 51798; 73700-26-LT; 73700-LT; 76770; 76770-26; 80048; 82270; 82272; 82306; 82728; 82746; 83036; 83540; 83735; 84100; 84466; 85014; 85018; 85025; 86140; 87040; 87086; 87088; 87184; 87186; 87205; 87338; 87804; 93306; 94640; 94668; 94760; 94761; 97110-GO; 97110-GP; 97161-GP; 97166-GO; 97530-GO; 97530-GP; 97535-GO; 99284; A9270-GY; C9113; J2185; J2270; J2916; J3370; J7040; J7050; J7120; J7620-GY; P9016

== ENCOUNTER 2021-05-08 09:38 | Emergency (ER) | payer MEDICARE, MEDICAID ==
[2021-05-08 09:43] VITALS: BP 182/52; PULSE 88
--- NOTE | 2021-05-08 11:48 | CR ---
Left knee: 4 views of the left knee were obtained. Comparison: Prior CT lower extremity of 07/25/19. Deformity is seen of the medial tibial plateau which appears to represent old healed injury. Severe joint space narrowing is seen within the medial compartment. Moderate joint space narrowing is noted within the lateral compartment. Degenerative change is seen within the patellofemoral joint. Bony structures are osteopenic. Impression: 1. Old injury which appears healed off the medial tibial plateau. 2. Degenerative change as noted above. Osteopenia is also present. 3. No definite acute abnormality is appreciated. Diagnostic code #3
--- NOTE | 2021-05-08 12:04 | EDM.PDOC ---
ED HPI GENERAL MEDICAL PROBLEM - General Chief Complaint: Lower Extremity Injury/Pain Stated Complaint: [facility] Time Seen by Provider: 05/08/21 09:57 Source of Information: Reports: Patient, EMS, RN Notes Reviewed - History of Present Illness INITIAL COMMENTS - FREE TEXT/NARRATIVE: 81 yr female comes in by ambulance with hx of chronic L knee pain but more severe than usual the last few days. Has had increased swelling of both legs this past 1 to 2 weeks. Today she states I "cannot walk" due to swelling and discomfort. She partially fell a few wks ago but not other recent fall or inju ry that she is aware. Hx of severe degenerative arthritis both knees. Left Lower Leg Pain Score (Numeric/FACES): 10 - Related Data Allergies Allergy/AdvReac Type Severity Reaction Status Date / Time No Known Allergies Allergy Verified 05/08/21 09:43 Home Meds: Home Meds Acetaminophen [Tylenol 8 Hour] 650 mg PO DAILY PRN 05/08/21 [History] Acetaminophen/Diphenhydramine [Tylenol Pm Ex-Strength Caplet] 1 tab PO QPM PRN 05/08/21 [History] Acetaminophen/oxyCODONE [Percocet 325-5 MG] 1 each PO DAILY PRN 05/08/21 [History] Aspirin [Halfprin] 81 mg PO QAM 05/08/21 [History] Biotin 10,000 mcg PO QAM 05/08/21 [History] Furosemide 40 mg PO QAM 05/08/21 [History] Gabapentin [Neurontin] 200 mg PO TID 05/08/21 [History] Iron/VitC/B12/B6/E/FA/IF/Senna [Iro-Plex Caplet] 1 tab PO TID 05/08/21 [History] L.acidoph,Paracasei, B.lactis [Probiotic] 1 cap PO QPM 05/08/21 [History] Levothyroxine [Synthroid] 100 mcg PO ACBREAKFAST 05/08/21 [History] Losartan Potassium 50 mg PO QAM 05/08/21 [History] Magnesium Citrate 100 mg PO QAM 05/08/21 [History] Metoprolol Succinate 50 mg PO QAM 05/08/21 [History] Multivit-Min/Iron/Folic/Lutein [Multivitamin Women 50 Plus Tab] 1 tab PO QAM 05/08/21 [History] Omeprazole 40 mg PO QAM 05/08/21 [History] Sennosides [Senna] 17.2 mg PO WEEKLY PRN 05/08/21 [History] Ubidecarenone [Co Q-10] 100 mg PO QAM 05/08/21 [History] Vitamin B Complex 1 cap PO QAM 05/08/21 [History] cephALEXin [Cephalexin] 500 mg PO TID #30 capsule 05/08/21 [Rx] dilTIAZem HCL [Dilt-Xr] 240 mg PO QAM 05/08/21 [History] fentaNYL [Fentanyl] 65.2 mcg TD Q3D 05/08/21 [History] Past Medical History - Past Health History Medical/Surgical History: Denies Medical/Surgical History HEENT History: Reports: Impaired Vision Other HEENT History: wear glasses Cardiovascular History: Reports: Blood Clots/VTE/DVT, High Cholesterol, Hypertension Respiratory History: Reports: PE, Sleep Apnea Genitourinary History: Reports: UTI, Recurrent Other Genitourinary History: pt states doctors have told her that her kidneys don't function well [employer]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 - Infectious Disease History Infectious Disease History: Reports: Chicken Pox, Measles, Shingles - Past Surgical History HEENT Surgical History: Reports: Cataract Surgery Cardiovascular Surgical History: Reports: Vascular Surgery Other Cardiovascular Surgeries/Procedures: blood clot filter Respiratory Surgical History: Reports: Other (See Below) Other Respiratory Surgeries/Procedures: IVC filter GI Surgical History: Reports: Cholecystectomy Musculoskeletal Surgical History: Reports: Other (See Below) Other Musculoskeletal Surgeries/Procedures:: L foot sx Dermatological Surgical History: Reports: Other (See Below) Social & Family History - Family History Family Medical History: No Pertinent Family History - Tobacco Use Tobacco Use Status *Q: Never Tobacco User Second Hand Smoke Exposure: No - Caffeine Use Caffeine Use: Reports: None Other Caffeine Use: decaff - Recreational Drug Use Recreational Drug Use: No - Living Situation & Occupation Living situation: Reports: , Alone Occupation: Retired Review of Systems - Review of Systems Review Of Systems: See Below Constitutional: Denies: Chills, Fever Mouth/Throat: Reports: No Symptoms Respiratory: Denies: Shortness of Breath Cardiovascular: Denies: Chest Pain GI/Abdominal: Denies: Abdominal Pain, Vomiting Musculoskeletal: Reports: Leg Pain, Joint Pain Neurological: Reports: Difficulty Walking ED EXAM, GENERAL - Physical Exam Exam: See Below General Appearance: Alert, No Apparent Distress (at rest) Head: Atraumatic Neck: Supple Respiratory/Chest: No Respiratory Distress, Lungs Clear, Normal Breath Sounds. No: Rales, Rhonchi, Wheezing Cardiovascular: Regular Rate, Rhythm GI/Abdominal: Non-Tender Extremities: Joint Swelling (mild swelling both knees, no bony tendernes either knee, pain with motion L knee, moderate edema both legs, feet and ankles, no warmth or erythema at time of exam) Course - Vital Signs Last Recorded V/S: Last Vital Signs Temp 97.2 F 05/08/21 09:39 Pulse 88 05/08/21 09:39 Resp 18 05/08/21 09:39 BP 182/52 H 05/08/21 09:39 Pulse Ox 95 05/08/21 09:39 - Orders/Labs/Meds Orders: Active Orders 24 hr Category Date Time Status Insert Urinary Catheter [OM.PC] Q24H Care 05/08/21 11:45 Ordered Labs: Laboratory Tests 05/08/21 05/08/21 05/08/21 Range/Units 10:27 10:27 10:27 WBC 10.55 H (3.98-10.04) K/mm3 RBC 3.20 L (3.98-5.22) M/mm3 Hgb 9.5 L (11.2-15.7) gm/dl Hct 32.4 L (34.1-44.9) % MCV 101.3 H (79.4-94.8) fl MCH 29.7 (25.6-32.2) pg MCHC 29.3 L (32.2-35.5) g/dl RDW Std Deviation 52.3 H (36.4-46.3) fL Plt Count 330 (182-369) K/mm3 MPV 8.4 L (9.4-12.3) fl Neut % (Auto) 76.7 H (34.0-71.1) % Lymph % (Auto) 8.6 L (19.3-51.7) % Douglas % (Auto) 13.2 H (4.7-12.5) % Eos % (Auto) 0.9 (0.7-5.8) Baso % (Auto) 0.3 (0.1-1.2) % Neut # (Auto) 8.09 H (1.56-6.13) K/mm3 Lymph # (Auto) 0.91 L (1.18-3.74) K/mm3 Douglas # (Auto) 1.39 H (0.24-0.36) K/mm3 Eos # (Auto) 0.10 (0.04-0.36) K/mm3 Baso # (Auto) 0.03 (0.01-0.08) K/mm3 Sodium 137 (136-145) mEq/L Potassium 4.4 (3.5-5.1) mEq/L Chloride 98 (98-107) mEq/L Carbon Dioxide 30 (21-32) mEq/L Anion Gap 13.4 (5-15) BUN 29 H (7-18) mg/dL Creatinine 2.0 H (0.55-1.02) mg/dL Est Cr Clr Drug Dosing 23.05 mL/min Estimated GFR (MDRD) 24 (>60) mL/min BUN/Creatinine Ratio 14.5 (14-18) Glucose 119 H (70-99) mg/dL Calcium 10.0 (8.5-10.1) mg/dL Total Bilirubin 0.6 (0.2-1.0) mg/dL AST 14 L (15-37) U/L ALT 13 L (14-59) U/L Alkaline Phosphatase 72 (46-116) U/L NT-Pro-B Natriuret Pep 3525 H (0-450) pg/mL Total Protein 7.7 (6.4-8.2) g/dl Albumin 3.0 L (3.4-5.0) g/dl Globulin 4.7 gm/dL Albumin/Globulin Ratio 0.6 L (1-2) Urine Color (Yellow) Urine Appearance (Clear) Urine pH (5.0-8.0) Ur Specific [place] (1.005-1.030) Urine Protein (Negative) Urine Glucose (UA) (Negative) Urine Ketones (Negative) Urine Occult Blood (Negative) Urine Nitrite (Negative) Urine Bilirubin (Negative) Urine Urobilinogen (0.2-1.0) Ur Leukocyte Esterase (Negative) U Hyaline Cast (Auto) (0-5) /lpf Urine RBC (0-5) /hpf Urine WBC (0-5) /hpf Ur Epithelial Cells (0-5) /hpf Urine Bacteria (FEW) /hpf Urine Mucus (FEW) /hpf 05/08/21 Range/Units 11:30 WBC (3.98-10.04) K/mm3 RBC (3.98-5.22) M/mm3 Hgb (11.2-15.7) gm/dl Hct (34.1-44.9) % MCV (79.4-94.8) fl MCH (25.6-32.2) pg MCHC (32.2-35.5) g/dl RDW Std Deviation (36.4-46.3) fL Plt Count (182-369) K/mm3 MPV (9.4-12.3) fl Neut % (Auto) (34.0-71.1) % Lymph % (Auto) (19.3-51.7) % Douglas % (Auto) (4.7-12.5) % Eos % (Auto) (0.7-5.8) Baso % (Auto) (0.1-1.2) % Neut # (Auto) (1.56-6.13) K/mm3 Lymph # (Auto) (1.18-3.74) K/mm3 Douglas # (Auto) (0.24-0.36) K/mm3 Eos # (Auto) (0.04-0.36) K/mm3 Baso # (Auto) (0.01-0.08) K/mm3 Sodium (136-145) mEq/L Potassium (3.5-5.1) mEq/L Chloride (98-107) mEq/L Carbon Dioxide (21-32) mEq/L Anion Gap (5-15) BUN (7-18) mg/dL Creatinine (0.55-1.02) mg/dL Est Cr Clr Drug Dosing mL/min Estimated GFR (MDRD) (>60) mL/min BUN/Creatinine Ratio (14-18) Glucose (70-99) mg/dL Calcium (8.5-10.1) mg/dL Total Bilirubin (0.2-1.0) mg/dL AST (15-37) U/L ALT (14-59) U/L Alkaline Phosphatase (46-116) U/L NT-Pro-B Natriuret Pep (0-450) pg/mL Total Protein (6.4-8.2) g/dl Albumin (3.4-5.0) g/dl Globulin gm/dL Albumin/Globulin Ratio (1-2) Urine Color Yellow (Yellow) Urine Appearance Clear (Clear) Urine pH 6.0 (5.0-8.0) Ur Specific [place] 1.015 (1.005-1.030) Urine Protein 1+ H (Negative) Urine Glucose (UA) Negative (Negative) Urine Ketones Negative (Negative) Urine Occult Blood Negative (Negative) Urine Nitrite Negative (Negative) Urine Bilirubin Negative (Negative) Urine Urobilinogen 0.2 (0.2-1.0) Ur Leukocyte Esterase Negative (Negative) U Hyaline Cast (Auto) 0-5 (0-5) /lpf Urine RBC 0-5 (0-5) /hpf Urine WBC Not seen (0-5) /hpf Ur Epithelial Cells Not seen (0-5) /hpf Urine Bacteria Rare (FEW) /hpf Urine Mucus Few (FEW) /hpf Meds: Medications Discontinued Medications Generic Name Dose Route Start Last Admin Trade Name Navjotq PRN Reason Stop Dose Admin Hydrocodone Bitart/Acetaminophen 1 tab 05/08/21 12:20 05/08/21 12:26 Acetaminophen/Hydrocodone 325-5 Mg Tab PO 05/08/21 12:21 1 tab ONETIME ONE Administration Cephalexin 500 mg 05/08/21 12:20 05/08/21 12:26 Cephalexin 500 Mg Cap PO 05/08/21 12:21 500 mg ONETIME ONE Administration - Re-Assessments/Exams Free Text/Narrative Re-Assessment/Exam: 05/08/21 13:58 Pt has fluid retention, no acute findings L knee Xray, severe degenerative changes. Her L foot and ankle is mildly warm, will start on cephalexin for possible mild early cellulitis. Will increase her furosemide to 40 mg q AM, 20 mg at noon, discharge instr. as documented. Departure - Departure Time of Disposition: 12:46 Disposition: Home, Self-Care 01 Condition: Fair Clinical Impression: Leg pain, left, Fluid retention Arthritis of knee, degenerative Qualifiers: Osteoarthritis type: unspecified Laterality: left Qualified Code(s): M17.12 - Unilateral primary osteoarthritis, left knee Cellulitis Qualifiers: Site of cellulitis: trunk Site of cellulitis of trunk: back Qualified Code(s): L03.312 - Cellulitis of back [any part except buttock] - Discharge Information Prescriptions: cephALEXin [Cephalexin] 500 mg PO TID #30 capsule Instructions: Arthritis, [id number], Cellulitis, Adult, [id number] Referrals: Sandi Stevenson, [employer]OOFING SUPERINTENDENT [Primary Care Provider] - Forms: ED Department Discharge Additional Instructions: Cephalexin 500 mg 3 times daily for 10 days. Prescription has been sent to [facility]. Increase furosemide from 40 mg AM to 40 mg AM plus 20 mg at noon each day for now. Elevate legs as much as possible. Low salt diet. See [facility] at clinic in 2 to 4 days, call for appointment. Hydrocodone 1 tab q 4 to 6 hr until discomfort improving. Return to ED as needed if symptoms worsening in any way. Sepsis Event Note (ED) - Evaluation Sepsis Screening Result: No Definite Risk - Focused Exam Vital Signs: Vital Signs Temp Pulse Resp BP Pulse Ox 05/08/21 09:39 97.2 F 88 18 182/52 H 95 - My Orders Last 24 Hours: My Active Orders 05/08/21 11:45 Insert Urinary Catheter [OM.PC] Q24H - Assessment/Plan Last 24 Hours: My Active Orders 05/08/21 11:45 Insert Urinary Catheter [OM.PC] Q24H
[2021-05-08] MEDS ORDERED: Cephalexin 500 MG Cap PO ONE (12:20)
[2021-05-08] MEDS ORDERED: Acetaminophen/HYDROcodone 325-5 MG Tab PO ONE (12:20)
== END 2021-05-08 13:30 | disposition home or self-care (01) ==
LOC: JD.ED 09:38
DX: M17.12 Unilateral primary osteoarthritis, left knee (principal); L03.312 Cellulitis of back [any part except buttock and flank]; R60.1 Generalized edema; E78.00 Pure hypercholesterolemia, unspecified; I10 Essential (primary) hypertension; E03.9 Hypothyroidism, unspecified; M19.90 Unspecified osteoarthritis, unspecified site; E66.9 Obesity, unspecified; Z68.30 Body mass index [BMI] 30.0-30.9, adult; Z79.82 Long term (current) use of aspirin; Z79.899 Other long term (current) drug therapy
CPT/HCPCS: 36415; 73564; 80053; 81001; 83880; 85025; 99284; A9270

== ENCOUNTER 2021-06-30 19:35 | Emergency (ER) | payer MEDICARE, MEDICAID ==
--- NOTE | 2021-06-30 20:20 | EDM.PDOC ---
ED HPI GENERAL MEDICAL PROBLEM - General Chief Complaint: Lower Extremity Injury/Pain Stated Complaint: [facility] Time Seen by Provider: 06/30/21 20:10 Source of Information: Reports: Patient, RN Notes Reviewed - History of Present Illness INITIAL COMMENTS - FREE TEXT/NARRATIVE: 81 yr old female caught L middle toe on edge of scooter type cart that she gets around on with L lac injury side of great toe. Does not feel broken. No other are of injury. - Related Data Allergies Allergy/AdvReac Type Severity Reaction Status Date / Time No Known Allergies Allergy Verified 06/30/21 19:48 Home Meds: Home Meds Acetaminophen [Tylenol 8 Hour] 650 mg PO DAILY PRN 05/08/21 [History] Acetaminophen/Diphenhydramine [Tylenol Pm Ex-Strength Caplet] 1 tab PO QPM PRN 05/08/21 [History] Acetaminophen/oxyCODONE [Percocet 325-5 MG] 1 each PO DAILY PRN 05/08/21 [History] Aspirin [Halfprin] 81 mg PO QAM 05/08/21 [History] Biotin 10,000 mcg PO QAM 05/08/21 [History] Furosemide 40 mg PO QAM 05/08/21 [History] Gabapentin [Neurontin] 200 mg PO TID 05/08/21 [History] Iron/VitC/B12/B6/E/FA/IF/Senna [Iro-Plex Caplet] 1 tab PO TID 05/08/21 [History] L.acidoph,Paracasei, B.lactis [Probiotic] 1 cap PO QPM 05/08/21 [History] Levothyroxine [Synthroid] 100 mcg PO ACBREAKFAST 05/08/21 [History] Losartan Potassium 50 mg PO QAM 05/08/21 [History] Magnesium Citrate 100 mg PO QAM 05/08/21 [History] Metoprolol Succinate 50 mg PO QAM 05/08/21 [History] Multivit-Min/Iron/Folic/Lutein [Multivitamin Women 50 Plus Tab] 1 tab PO QAM 05/08/21 [History] Omeprazole 40 mg PO QAM 05/08/21 [History] Sennosides [Senna] 17.2 mg PO WEEKLY PRN 05/08/21 [History] Ubidecarenone [Co Q-10] 100 mg PO QAM 05/08/21 [History] Vitamin B Complex 1 cap PO QAM 05/08/21 [History] cephALEXin [Cephalexin] 500 mg PO TID #30 capsule 05/08/21 [Rx] dilTIAZem HCL [Dilt-Xr] 240 mg PO QAM 05/08/21 [History] fentaNYL [Fentanyl] 65.2 mcg TD Q3D 05/08/21 [History] Past Medical History - Past Health History Medical/Surgical History: Denies Medical/Surgical History HEENT History: Reports: Impaired Vision Other HEENT History: wear glasses Cardiovascular History: Reports: Blood Clots/VTE/DVT, High Cholesterol, Hypertension Respiratory History: Reports: PE, Sleep Apnea Genitourinary History: Reports: UTI, Recurrent Other Genitourinary History: pt states doctors have told her that her kidneys don't function well 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 - Infectious Disease History Infectious Disease History: Reports: Chicken Pox, Measles, Shingles - Past Surgical History HEENT Surgical History: Reports: Cataract Surgery Cardiovascular Surgical History: Reports: Vascular Surgery Other Cardiovascular Surgeries/Procedures: blood clot filter Respiratory Surgical History: Reports: Other (See Below) Other Respiratory Surgeries/Procedures: IVC filter GI Surgical History: Reports: Cholecystectomy Musculoskeletal Surgical History: Reports: Other (See Below) Other Musculoskeletal Surgeries/Procedures:: L foot sx Dermatological Surgical History: Reports: Other (See Below) Social & Family History - Family History Family Medical History: No Pertinent Family History - Tobacco Use Tobacco Use Status *Q: Never Tobacco User Second Hand Smoke Exposure: No - Caffeine Use Caffeine Use: Reports: Coffee Other Caffeine Use: decaff - Recreational Drug Use Recreational Drug Use: No - Living Situation & Occupation Living situation: Reports: , Alone Occupation: Retired Review of Systems - Review of Systems Review Of Systems: See Below Constitutional: Reports: No Symptoms Respiratory: Reports: No Symptoms Cardiovascular: Reports: No Symptoms GI/Abdominal: Reports: No Symptoms Musculoskeletal: Reports: Other (Lac injury L 3rd toe) Neurological: Reports: No Symptoms ED EXAM, GENERAL - Physical Exam Exam: See Below General Appearance: Alert, No Apparent Distress Head: Atraumatic Neck: Supple Respiratory/Chest: No Respiratory Distress Extremities: Other (1.5 cm lac lateral aspect of L 3rd toe, mod. deep, gaping) Skin Exam: Warm, Dry, Normal Color ED TRAUMA EXTREMITY PROCEDURES - Laceration/Wound Repair Left Digit - 3rd (Middle) Lac/Wound Length In cm: 1.5 Appearance: Linear Distal NVT: Neuro & Vascular Intact, No Tendon Injury Anesthetic Type: Local Local Anesthesia - Lidocaine (Xylocaine): 1% Plain Skin Prep: Saline Suture Size: 3-0 # of Sutures: 4 Suture Type: Nylon Course - Vital Signs Last Recorded V/S: Last Vital Signs Temp 98.0 F 06/30/21 19:47 Pulse 86 06/30/21 19:47 Resp 20 06/30/21 19:47 BP 185/63 H 06/30/21 19:47 Pulse Ox 94 L 06/30/21 19:47 - Orders/Labs/Meds Meds: Medications Discontinued Medications Generic Name Dose Route Start Last Admin Trade Name Flakito PRN Reason Stop Dose Admin Lidocaine HCl 10 ml 06/30/21 20:21 Lidocaine 1% 10 Ml Mdv INJECT 06/30/21 20:22 ONETIME ONE Departure - Departure Time of Disposition: 20:43 Disposition: Home, Self-Care 01 Condition: Fair Clinical Impression: Toe laceration Qualifiers: Encounter type: initial encounter Toe: lesser toe Damage to nail status: unspecified Foreign body presence: without foreign body Laterality: left Qualified Code(s): S91.115A - Laceration without foreign body of left lesser toe(s) without damage to nail, initial encounter - Discharge Information Referrals: PCP,None [Primary Care Provider] - Forms: ED Department Discharge Additional Instructions: Laceration care instr. Stitches out in about 10 days. Have rechecked any sign of infection. Sepsis Event Note (ED) - Focused Exam Vital Signs: Vital Signs Temp Pulse Resp BP Pulse Ox 06/30/21 19:47 98.0 F 86 20 185/63 H 94 L
[2021-06-30] MEDS ORDERED: Lidocaine 1% 10 ML MDV INJECT ONE (20:21)
[2021-06-30 22:38] VITALS: BP 144/58; PULSE 78
== END 2021-06-30 22:55 | disposition home or self-care (01) ==
LOC: JD.ED 19:35
DX: S91.115A Laceration without foreign body of left lesser toe(s) without damage to nail, initial encounter (principal); E78.00 Pure hypercholesterolemia, unspecified; I10 Essential (primary) hypertension; E03.9 Hypothyroidism, unspecified; E66.9 Obesity, unspecified; Z68.43 Body mass index [BMI] 50.0-59.9, adult; Z79.82 Long term (current) use of aspirin; Z79.899 Other long term (current) drug therapy; W23.0XXA Caught, crushed, jammed, or pinched between moving objects, initial encounter
CPT/HCPCS: 12001; 99283; 99284

== ENCOUNTER 2021-08-24 09:15 | Emergency (ER) | payer MEDICARE, MEDICAID ==
[2021-08-24] MEDS ORDERED: Sodium Chloride 0.9% 10 ML Syringe FLUSH PRN (09:44)
[2021-08-24] MEDS ORDERED: Sodium Chloride 0.9% 1,000 ML IV SCH (09:45)
[2021-08-24 14:41] VITALS: BP 154/63; PULSE 84
== END 2021-08-24 14:35 | disposition home or self-care (01) ==
LOC: JD.ED 09:15
DX: L03.312 Cellulitis of back [any part except buttock and flank] (principal); M25.562 Pain in left knee; M54.6 Pain in thoracic spine; R53.1 Weakness; E78.00 Pure hypercholesterolemia, unspecified; I10 Essential (primary) hypertension; E03.9 Hypothyroidism, unspecified; E66.9 Obesity, unspecified; M19.90 Unspecified osteoarthritis, unspecified site; Z68.30 Body mass index [BMI] 30.0-30.9, adult; Z79.82 Long term (current) use of aspirin; Z79.899 Other long term (current) drug therapy
CPT/HCPCS: 36415; 51701; 72070; 72070-26; 73564-26-LT; 73564-LT; 80053; 81003; 85025; 86140; 99284; 99284-25; J7030

== ENCOUNTER 2021-09-04 10:07 | Inpatient (IN) | payer MEDICARE, MEDICAID ==
[2021-09-04] MEDS ORDERED: Sodium Chloride 0.9% 10 ML Syringe FLUSH PRN (11:54)
[2021-09-04] MEDS ORDERED: Sodium Chloride 0.9% 1,000 ML IV STA ×2 (12:15→12:16)
[2021-09-04] MEDS ORDERED: HYDROmorphone 0.5 MG/0.5 ML Syringe IVPUSH ONE (12:16)
[2021-09-04] MEDS ORDERED: oxyCODONE 5 MG Tab PO PRN (15:18)
[2021-09-04] MEDS ORDERED: Docusate Sodium 100 MG Cap PO PRN (15:18)
[2021-09-04] MEDS ORDERED: Sennosides 8.6 MG Tab PO PRN (15:38)
[2021-09-04] MEDS: Nystatin Topical Powder 15 GM Bottle TOP SCH ×2 (18:10→20:26)
[2021-09-04] MEDS: Saccharomyces Boulardii (Probiotic) 250 MG Cap PO SCH (20:08)
[2021-09-04] MEDS: Gabapentin 100 MG Cap PO SCH (20:11)
[2021-09-04] MEDS: HYDROmorphone 0.5 MG/0.5 ML Syringe IVPUSH PRN ×2 (20:13→22:08)
[2021-09-04] MEDS: Sodium Chloride 0.9% 1,000 ML IV SCH (20:15)
[2021-09-04] MEDS ORDERED: Temazepam 15 MG Cap PO PRN (21:00)
[2021-09-05] MEDS: HYDROmorphone 0.5 MG/0.5 ML Syringe IVPUSH PRN (04:18)
[2021-09-05] MEDS ORDERED: Magnesium Hydroxide 400 MG/5 ML Susp 30 ML Cup PO ONE (06:00)
[2021-09-05] MEDS: Levothyroxine 100 MCG Tab PO SCH (06:41)
[2021-09-05] MEDS: Pantoprazole 40 MG Tab.CR PO SCH (06:41)
[2021-09-05] MEDS: Losartan 50 MG Tab PO SCH (08:54)
[2021-09-05] MEDS: Aspirin 81 MG Tab.EC PO SCH (08:54)
[2021-09-05] MEDS: Magnesium Oxide 400 MG Tab PO SCH (08:54)
[2021-09-05] MEDS: Diltiazem 240 MG Cap.ER PO SCH (08:54)
[2021-09-05] MEDS: Furosemide 40 MG Tab PO SCH (08:54)
[2021-09-05] MEDS: Metoprolol Succinate 50 MG Tab.ER PO SCH (08:54)
[2021-09-05] MEDS: Gabapentin 100 MG Cap PO SCH ×3 (08:55→20:17)
[2021-09-05] MEDS: Nystatin Topical Powder 15 GM Bottle TOP SCH ×2 (08:55→20:17)
[2021-09-05] MEDS: Enoxaparin 30 MG/0.3 ML Syringe SUBCUT SCH (08:55)
[2021-09-05] MEDS ORDERED: LORazepam 0.5 MG Tab PO PRN (11:29)
[2021-09-05] MEDS ORDERED: Sodium Chloride 0.9% 500 ML IV ONE (11:32)
[2021-09-05] MEDS: Acetaminophen/oxyCODONE 325-5 MG Tab PO PRN ×2 (15:20→20:15)
[2021-09-05] MEDS: Saccharomyces Boulardii (Probiotic) 250 MG Cap PO SCH (18:03)
[2021-09-05] MEDS: Ondansetron 4 MG Tab.DIS PO PRN (23:32)
[2021-09-06] MEDS ORDERED: Metoclopramide 10 MG/2 ML SDV IVPUSH ONE (00:53)
[2021-09-06] MEDS: Sodium Chloride 0.9% 1,000 ML IV SCH ×2 (02:59→22:47)
[2021-09-06] MEDS: Levothyroxine 100 MCG Tab PO SCH (06:22)
[2021-09-06] MEDS: Pantoprazole 40 MG Tab.CR PO SCH (06:23)
[2021-09-06] MEDS: Metoprolol Succinate 50 MG Tab.ER PO SCH (08:07)
[2021-09-06] MEDS: Nystatin Topical Powder 15 GM Bottle TOP SCH ×2 (08:07→22:22)
[2021-09-06] MEDS: Enoxaparin 30 MG/0.3 ML Syringe SUBCUT SCH (08:07)
[2021-09-06] MEDS: Aspirin 81 MG Tab.EC PO SCH (08:07)
[2021-09-06] MEDS: Furosemide 40 MG Tab PO SCH (08:08)
[2021-09-06] MEDS: Losartan 50 MG Tab PO SCH (08:08)
[2021-09-06] MEDS: Magnesium Oxide 400 MG Tab PO SCH (08:08)
[2021-09-06] MEDS: Ascorbic Acid 500 MG Tab PO SCH (08:08)
[2021-09-06] MEDS: Diltiazem 240 MG Cap.ER PO SCH (08:08)
[2021-09-06] MEDS: Gabapentin 100 MG Cap PO SCH ×3 (08:09→22:22)
[2021-09-06] MEDS: Ondansetron 4 MG Tab.DIS PO PRN (08:39)
[2021-09-06] MEDS ORDERED: fentaNYL 75 MCG/HR Transdermal Patch TRDERM SCH (09:00)
[2021-09-06] MEDS ORDERED: Non-Formulary Medication 1 Each (Ubidecarenone 100 MG Capsule) PO SCH (09:00)
[2021-09-06] MEDS ORDERED: Sennosides 8.6 MG Tab PO PRN (09:45)
[2021-09-06] MEDS: Promethazine 25 MG Tab PO PRN ×3 (11:11→18:45)
[2021-09-06] MEDS: HYDROmorphone 0.5 MG/0.5 ML Syringe IVPUSH PRN (15:11)
[2021-09-06] MEDS: Ondansetron 4 MG/2 ML SDV IVPUSH PRN (16:40)
[2021-09-06] MEDS: Famotidine 10 MG Tab PO SCH (18:49)
[2021-09-06] MEDS: Saccharomyces Boulardii (Probiotic) 250 MG Cap PO SCH (19:03)
[2021-09-07] MEDS: Ondansetron 4 MG/2 ML SDV IVPUSH PRN (00:54)
[2021-09-07] MEDS ORDERED: Metoclopramide 10 MG/2 ML SDV IVPUSH PRN (04:04)
[2021-09-07] MEDS ORDERED: Metoclopramide 10 MG/2 ML SDV ONE (04:07)
[2021-09-07] MEDS ORDERED: Heparin Sodium 5,000 Units/ML Vial SUBCUT SCH (06:00)
[2021-09-07] MEDS: Levothyroxine 100 MCG Tab PO SCH (06:11)
[2021-09-07] MEDS: Pantoprazole 40 MG Tab.CR PO SCH (06:11)
[2021-09-07] MEDS: Famotidine 10 MG Tab PO SCH (08:12)
[2021-09-07] MEDS: Aspirin 81 MG Tab.EC PO SCH (08:13)
[2021-09-07] MEDS: Diltiazem 240 MG Cap.ER PO SCH (08:13)
[2021-09-07] MEDS: Metoprolol Succinate 50 MG Tab.ER PO SCH (08:15)
[2021-09-07] MEDS: Gabapentin 100 MG Cap PO SCH (08:15)
[2021-09-07] MEDS: Magnesium Oxide 400 MG Tab PO SCH (08:15)
[2021-09-07] MEDS: Losartan 50 MG Tab PO SCH (08:15)
[2021-09-07] MEDS: Ascorbic Acid 500 MG Tab PO SCH (08:15)
[2021-09-07] MEDS: Furosemide 40 MG Tab PO SCH (08:15)
[2021-09-07 08:16] VITALS: PULSE 69
[2021-09-07] MEDS: Nystatin Topical Powder 15 GM Bottle TOP SCH (08:16)
[2021-09-07] MEDS: HYDROmorphone 0.5 MG/0.5 ML Syringe IVPUSH PRN (08:53)
[2021-09-07 12:02] VITALS: BP 144/59
[2021-09-07] MEDS: Acetaminophen/oxyCODONE 325-5 MG Tab PO PRN (12:59)
== END 2021-09-07 14:05 | DRG 560 ==
LOC: JD.ED 10:07 → SUPCPDRO 10:07 → JD.MS 15:18
PROVIDERS: ADMIT Internal Medicine; ATTEND Internal Medicine
DX: S22.061D Stable burst fracture of T7-T8 vertebra, subsequent encounter for fracture with routine healing (principal); I13.0 Hypertensive heart and chronic kidney disease with heart failure and stage 1 through stage 4 chronic kidney disease, or unspecified chronic kidney disease; N18.4 Chronic kidney disease, stage 4 (severe); I50.32 Chronic diastolic (congestive) heart failure; M54.6 Pain in thoracic spine; G47.33 Obstructive sleep apnea (adult) (pediatric); F41.9 Anxiety disorder, unspecified; E66.9 Obesity, unspecified; E03.9 Hypothyroidism, unspecified; Z20.822 Contact with and (suspected) exposure to COVID-19; E78.5 Hyperlipidemia, unspecified; G89.4 Chronic pain syndrome; Z68.35 Body mass index [BMI] 35.0-35.9, adult; Z74.01 Bed confinement status; Z79.890 Hormone replacement therapy; Z79.899 Other long term (current) drug therapy; Z79.1 Long term (current) use of non-steroidal anti-inflammatories (NSAID); Z79.82 Long term (current) use of aspirin; Z87.440 Personal history of urinary (tract) infections; Z86.718 Personal history of other venous thrombosis and embolism; Z79.01 Long term (current) use of anticoagulants; Z97.3 Presence of spectacles and contact lenses; Z86.711 Personal history of pulmonary embolism; Z98.42 Cataract extraction status, left eye; Z98.41 Cataract extraction status, right eye; W18.30XD Fall on same level, unspecified, subsequent encounter; Z90.89 Acquired absence of other organs; Z98.890 Other specified postprocedural states; Z90.49 Acquired absence of other specified parts of digestive tract; Z95.828 Presence of other vascular implants and grafts
CPT/HCPCS: 36415; 51701; 51702; 51798; 71250; 71250-26; 72128; 72128-26; 80053; 81001; 83735; 85025; 86140; 87210; 87808; 94760; 94761; 97161-GP; 97530-GP; A9270-GY; J1170; J1644; J1650; J2405; J2765; J7030; J8597; U0002

== ENCOUNTER 2021-11-06 12:19 | Inpatient (IN) | payer MEDICARE, MEDICAID ==
[2021-11-06] MEDS ORDERED: Sodium Chloride 0.9% 1,000 ML IV STA (14:02)
[2021-11-06] MEDS ORDERED: cefTRIAXone 1 GM in Sodium Chloride 0.9% 100 ML IV ONE (14:12)
[2021-11-06] MEDS ORDERED: Ondansetron 4 MG Tab.DIS PO PRN (17:24)
[2021-11-06] MEDS ORDERED: Acetaminophen 325 MG Tab PO PRN (17:24)
[2021-11-06] MEDS ORDERED: Sennosides 8.6 MG Tab PO PRN (18:38)
[2021-11-06] MEDS ORDERED: Non-Formulary Medication 1 Each (Fentanyl [Fentanyl] 1 EACH Patch.Td72) TRDERM SCH (18:45)
[2021-11-06] MEDS: Multivitamins with Minerals/Folic Acid/Lutein/Zeaxanth Tab PO SCH (20:43)
[2021-11-06] MEDS: traZODone 50 MG Tab PO SCH (20:43)
[2021-11-06] MEDS: Gabapentin 100 MG Cap PO SCH (20:43)
[2021-11-06] MEDS: Metoprolol Succinate 50 MG Tab.ER PO SCH (20:44)
[2021-11-06] MEDS: Famotidine 10 MG Tab PO SCH (20:44)
[2021-11-06] MEDS: guaiFENesin 600 MG Tab.ER PO SCH (20:44)
[2021-11-06] MEDS: Magnesium Oxide 400 MG Tab PO SCH (20:44)
[2021-11-06] MEDS: Enoxaparin 30 MG/0.3 ML Syringe SUBCUT SCH (20:45)
[2021-11-06] MEDS ORDERED: B12 PO SCH (21:00)
[2021-11-06] MEDS ORDERED: VITC PO SCH (21:00)
[2021-11-06] MEDS ORDERED: IRON PO SCH (21:00)
[2021-11-06] MEDS ORDERED: B6 PO SCH (21:00)
[2021-11-06] MEDS ORDERED: [UNRECOGNIZED DRUG - OTHER] PO SCH (21:00)
[2021-11-06] MEDS ORDERED: Remove Fentanyl 12 mcg Patch TRDERM SCH (23:00)
[2021-11-06] MEDS ORDERED: REMOVE FENTANYL TRDERM SCH (23:00)
[2021-11-06] MEDS ORDERED: fentaNYL 75 MCG/HR Transdermal Patch TRDERM SCH (23:00)
[2021-11-06] MEDS ORDERED: fentaNYL 12 MCG/HR Transdermal Patch TRDERM SCH (23:00)
[2021-11-07] MEDS: Levothyroxine 100 MCG Tab PO SCH (05:51)
[2021-11-07 07:39] LABS: HEMOGLOBIN A1C 5.1 %
[2021-11-07] MEDS: Aspirin 81 MG Tab.EC PO SCH (08:01)
[2021-11-07] MEDS: Magnesium Oxide 400 MG Tab PO SCH ×2 (08:02→21:55)
[2021-11-07] MEDS: Furosemide 40 MG Tab PO SCH (08:02)
[2021-11-07] MEDS: Multivitamins with Minerals/Folic Acid/Lutein/Zeaxanth Tab PO SCH ×2 (08:02→21:54)
[2021-11-07] MEDS: Gabapentin 100 MG Cap PO SCH ×3 (08:02→21:57)
[2021-11-07] MEDS: guaiFENesin 600 MG Tab.ER PO SCH ×2 (08:02→21:57)
[2021-11-07] MEDS: Cholecalciferol (Vitamin D3) 25 MCG Tab PO SCH (08:02)
[2021-11-07] MEDS: Enoxaparin 30 MG/0.3 ML Syringe SUBCUT SCH (08:03)
[2021-11-07] MEDS: Ascorbic Acid 500 MG Tab PO SCH (08:03)
[2021-11-07] MEDS: Famotidine 10 MG Tab PO SCH (08:03)
[2021-11-07] MEDS: Docusate Sodium 100 MG Cap PO SCH (08:03)
[2021-11-07] MEDS: Diltiazem 240 MG Cap.ER PO SCH (08:03)
[2021-11-07] MEDS ORDERED: Acetaminophen/oxyCODONE 325-5 MG Tab PO PRN (12:00)
[2021-11-07] MEDS: cefTRIAXone 1 GM in Sodium Chloride 0.9% 100 ML IV SCH (15:59)
[2021-11-07] MEDS: Albuterol 0.083% 2.5 MG/3 ML Neb Soln NEB PRN (16:10)
[2021-11-07] MEDS: Formoterol/Mometasone 100-5 MCG 8.8 GM Inhaler IH SCH (20:24)
[2021-11-07] MEDS: traZODone 50 MG Tab PO SCH (21:55)
[2021-11-07] MEDS: Metoprolol Succinate 50 MG Tab.ER PO SCH (21:56)
[2021-11-08] MEDS: Levothyroxine 100 MCG Tab PO SCH (05:20)
[2021-11-08] MEDS: Albuterol 0.083% 2.5 MG/3 ML Neb Soln NEB PRN (06:23)
[2021-11-08] MEDS: Formoterol/Mometasone 100-5 MCG 8.8 GM Inhaler IH SCH ×2 (06:23→20:50)
[2021-11-08] MEDS: Cholecalciferol (Vitamin D3) 25 MCG Tab PO SCH (08:19)
[2021-11-08] MEDS: Diltiazem 240 MG Cap.ER PO SCH (08:19)
[2021-11-08] MEDS: Magnesium Oxide 400 MG Tab PO SCH ×2 (08:19→20:46)
[2021-11-08] MEDS: Ascorbic Acid 500 MG Tab PO SCH (08:19)
[2021-11-08] MEDS: Enoxaparin 30 MG/0.3 ML Syringe SUBCUT SCH (08:19)
[2021-11-08] MEDS: Famotidine 10 MG Tab PO SCH (08:20)
[2021-11-08] MEDS: Multivitamins with Minerals/Folic Acid/Lutein/Zeaxanth Tab PO SCH ×2 (08:20→20:46)
[2021-11-08] MEDS: Aspirin 81 MG Tab.EC PO SCH (08:20)
[2021-11-08] MEDS: guaiFENesin 600 MG Tab.ER PO SCH ×2 (08:20→20:45)
[2021-11-08] MEDS: Furosemide 40 MG Tab PO SCH (08:20)
[2021-11-08] MEDS: Gabapentin 100 MG Cap PO SCH ×4 (08:20→20:45)
[2021-11-08] MEDS: cefTRIAXone 1 GM in Sodium Chloride 0.9% 100 ML IV SCH (16:04)
[2021-11-08] MEDS: traZODone 50 MG Tab PO SCH (20:46)
[2021-11-08] MEDS: Metoprolol Succinate 50 MG Tab.ER PO SCH (20:46)
[2021-11-09] MEDS: Formoterol/Mometasone 100-5 MCG 8.8 GM Inhaler IH SCH (06:12)
[2021-11-09] MEDS: Levothyroxine 100 MCG Tab PO SCH (06:22)
[2021-11-09] MEDS: Gabapentin 100 MG Cap PO SCH (09:45)
[2021-11-09] MEDS: Docusate Sodium 100 MG Cap PO SCH (09:45)
[2021-11-09] MEDS: Famotidine 10 MG Tab PO SCH (09:45)
[2021-11-09] MEDS: Aspirin 81 MG Tab.EC PO SCH (09:45)
[2021-11-09] MEDS: Magnesium Oxide 400 MG Tab PO SCH (09:45)
[2021-11-09] MEDS: Cholecalciferol (Vitamin D3) 25 MCG Tab PO SCH (09:45)
[2021-11-09] MEDS: guaiFENesin 600 MG Tab.ER PO SCH (09:45)
[2021-11-09] MEDS: Furosemide 40 MG Tab PO SCH (09:46)
[2021-11-09] MEDS: Diltiazem 240 MG Cap.ER PO SCH (09:46)
[2021-11-09] MEDS: Enoxaparin 30 MG/0.3 ML Syringe SUBCUT SCH (09:46)
[2021-11-09] MEDS: Multivitamins with Minerals/Folic Acid/Lutein/Zeaxanth Tab PO SCH (09:50)
[2021-11-09] MEDS: Ascorbic Acid 500 MG Tab PO SCH (10:09)
[2021-11-09 12:25] VITALS: BP 122/81; PULSE 65
== END 2021-11-09 14:45 | DRG 682 ==
LOC: JD.ED 12:19 → JD.MS 15:58
PROVIDERS: ADMIT Pediatrics; ATTEND Pediatrics
DX: I50.9 Heart failure, unspecified (principal); N17.9 Acute kidney failure, unspecified; J18.9 Pneumonia, unspecified organism; I50.41 Acute combined systolic (congestive) and diastolic (congestive) heart failure; E66.2 Morbid (severe) obesity with alveolar hypoventilation; G47.30 Sleep apnea, unspecified; M19.90 Unspecified osteoarthritis, unspecified site; Z68.42 Body mass index [BMI] 45.0-49.9, adult; I42.0 Dilated cardiomyopathy; J98.11 Atelectasis; I13.2 Hypertensive heart and chronic kidney disease with heart failure and with stage 5 chronic kidney disease, or end stage renal disease; N18.5 Chronic kidney disease, stage 5; D63.1 Anemia in chronic kidney disease; M14.672 Charcot's joint, left ankle and foot; Z20.822 Contact with and (suspected) exposure to COVID-19; I27.20 Pulmonary hypertension, unspecified; N31.9 Neuromuscular dysfunction of bladder, unspecified; G62.9 Polyneuropathy, unspecified; I08.1 Rheumatic disorders of both mitral and tricuspid valves; E78.00 Pure hypercholesterolemia, unspecified; H54.7 Unspecified visual loss; I50.810 Right heart failure, unspecified; M54.9 Dorsalgia, unspecified; G89.29 Other chronic pain; E03.9 Hypothyroidism, unspecified; E53.8 Deficiency of other specified B group vitamins; K74.60 Unspecified cirrhosis of liver; K76.0 Fatty (change of) liver, not elsewhere classified; F41.9 Anxiety disorder, unspecified; G47.33 Obstructive sleep apnea (adult) (pediatric); M25.562 Pain in left knee; Z79.82 Long term (current) use of aspirin; Z79.899 Other long term (current) drug therapy; Z90.49 Acquired absence of other specified parts of digestive tract; Z86.718 Personal history of other venous thrombosis and embolism; Z79.01 Long term (current) use of anticoagulants; Z86.711 Personal history of pulmonary embolism; Z28.310 Unvaccinated for COVID-19; Z87.891 Personal history of nicotine dependence; Z79.890 Hormone replacement therapy
CPT/HCPCS: 36415; 71045; 80053; 81001; 82668; 83605; 83880; 84484; 85025; 85379; 86140; 87040 ×2; 87086; 93005; 96365; 99285; J0696; J7030; U0002; 36600; 71250; 71250-26; 78582; 78582-26; 80048; 82607; 82746; 82803; 83036; 83540; 83735; 84100; 84156; 84443; 85045; 87641; 93306; 93970; 93970-26; 94640; 94667; 94668; 94761; 97110-GP; 97162-GP; 97530-GP; A9270-GY; A9540; J1650

== ENCOUNTER 2024-05-26 02:10 | Inpatient (IN) | payer MEDICARE, MEDICAID ==
[2024-05-26] MEDS ORDERED: Sodium Chloride 0.9% 10 ML Syringe FLUSH PRN (02:22)
[2024-05-26 02:33] LABS: BASE EXCESS ARTERIAL 3.3 (-2-2.0); BICARBONATE,ARTERIAL 31.5 meq/L (22.0-26.0); O2 SATURATION ARTERIAL 97.2 % (96.0-97.0)
[2024-05-26 02:34] LABS: PCO2 ARTERIAL 79.6 mmHg (35.0-45.0)
[2024-05-26] MEDS: Furosemide 40 MG/4 ML VIAL IVPUSH ONE ×3 (02:54→05:19)
[2024-05-26 03:01] LABS: BASOPHILS ABSOLUTE AUTO 0.1 K/mm3 (0.0-0.2); BASOPHILS PERCENT AUTO 0.5 % (0.0-1.0); EOSINOPHILS ABSOLUTE AUTO 0.6 K/mm3 (0.0-0.4); EOSINOPHILS PERCENT AUTO 4.4 % (0.0-6.0); HEMATOCRIT 26.6 % (37.0-47.0); HEMOGLOBIN 7.7 gm/dl (12.0-16.0); IMMATURE GRAN ABSOLUTE AUTO 0.07 K/mm3 (0.00-0.05); IMMATURE GRAN PERCENT AUTO 0.5 % (0.0-0.4); LYMPHOCYTES ABSOLUTE AUTO 1.1 K/mm3 (1.0-4.8); LYMPHOCYTES PERCENT AUTO 8.8 % (24.0-44.0); MEAN CORPUSCULAR HEMOGLOBIN 27.9 pg (28.0-32.0); MEAN CORPUSCULAR HGB CONC 28.9 g/dl (32.0-36.0); MEAN CORPUSCULAR VOLUME 96.4 fl (83.0-99.0); MONOCYTES PERCENT AUTO 7.8 % (0.0-8.0); NEUTROPHILS ABSOLUTE AUTO 10.1 K/mm3 (1.8-7.7); PLATELET COUNT,PLT 238 K/mm3 (150-400); RED BLOOD CELL COUNT 2.76 M/mm3 (4.10-5.30); WHITE BLOOD CELL COUNT,WBC 12.93 K/mm3 (3.9-11.3)
[2024-05-26 03:06] LABS: HEMOGLOBIN A1C 4.9 %
[2024-05-26] MEDS: Nitroglycerin/D5W 25 MG/250 ML BOTTLE IV SCH (03:12)
[2024-05-26 03:27] LABS: LACTIC ACID 0.7 mmol/L (0.4-2.0)
[2024-05-26 03:28] LABS: A/G RATIO 0.9 (1-2); ALBUMIN 3.3 g/dl (3.4-5.0); ANION GAP 10.4 (5-15); BILIRUBIN TOTAL 0.5 mg/dL (0.2-1.0); BUN/CREATININE RATIO 12.4 (14-18); C-REACTIVE PROTEIN 6.94 mg/dL (<0.30); CALCIUM 9.4 mg/dL (8.5-10.1); CREATININE 4.1 mg/dL (0.55-1.02); EST CRCL DRUG DOSING (CG) 10.65 mL/min; POTASSIUM,K 4.4 mEq/L (3.5-5.1); PROTEIN TOTAL,TP 7.1 g/dl (6.4-8.2)
[2024-05-26 03:40] LABS: CORONAVIRUS COVID-19 NAA NEGATIVE (NEGATIVE); INFLUENZA A NAA NEGATIVE (NEGATIVE); RESPIRATORY SYNCYTIAL VIR NAA NEGATIVE (NEGATIVE)
[2024-05-26] MEDS: Furosemide 100 MG/10 ML SDV IVPUSH ONE (05:16)
[2024-05-26 06:18] LABS: BICARBONATE,ARTERIAL 30.4 meq/L (22.0-26.0); O2 SATURATION ARTERIAL 94.5 % (96.0-97.0)
[2024-05-26 06:19] LABS: PCO2 ARTERIAL 72.1 mmHg (35.0-45.0)
[2024-05-26 06:53] LABS: SLIDE REVIEW ABNORMAL SMEAR
[2024-05-26] MEDS ORDERED: DILTIAZEM HCL 240 MG PO SCH (12:00)
[2024-05-26] MEDS ORDERED: Acetaminophen 325 MG Tab PO PRN (12:32)
[2024-05-26] MEDS ORDERED: Ondansetron 4 MG/2 ML SDV IV PRN (12:32)
[2024-05-26] MEDS ORDERED: Polyethylene Glycol 3350 Powder 17 GM Packet PO PRN (12:32)
[2024-05-26] MEDS ORDERED: Docusate Sodium 100 MG Cap PO PRN (12:32)
[2024-05-26 13:26] LABS: ANION GAP 13.8 (5-15); BUN/CREATININE RATIO 12.4 (14-18); CALCIUM 9.3 mg/dL (8.5-10.1); CREATININE 4.1 mg/dL (0.55-1.02); EST CRCL DRUG DOSING (CG) 10.65 mL/min; POTASSIUM,K 4.8 mEq/L (3.5-5.1)
[2024-05-26 13:30] LABS: APPEARANCE,URINE CLOUDY (Clear); BILIRUBIN,URINE NEGATIVE (Negative); COLOR,URINE YELLOW (Yellow); GLUCOSE,URINE TRACE (Negative); KETONES,URINE NEGATIVE (Negative); LEUKOCYTE ESTERASE,URINE 3+ (Negative); NITRITE,URINE NEGATIVE (Negative); OCCULT BLOOD,URINE NEGATIVE (Negative); PH,URINE 5.5 (5.0-8.0); PROTEIN,URINE TRACE (Negative); UROBILINOGEN,URINE 0.2 (0.2-1.0)
[2024-05-26 13:42] LABS: BACTERIA,URINE MODERATE /hpf (FEW); MUCUS,URINE FEW /hpf (FEW); RBC,URINE 0-5 /hpf (0-5); WBC,URINE >100 /hpf (0-5)
[2024-05-26] MEDS: Diltiazem 240 MG Cap.ER PO SCH (14:40)
[2024-05-26] MEDS: Bumetanide 1 MG/4 ML MDV IVPUSH ONE (14:40)
[2024-05-26] MEDS: Sertraline 50 MG Tab PO SCH (14:40)
[2024-05-26] MEDS: Heparin Sodium 5,000 Units/ML Vial SUBCUT SCH (14:40)
[2024-05-26] MEDS: Heparin Sodium/D5W 250 ML IV SCH (15:20)
[2024-05-26 16:12] LABS: INR 1.01; PROTHROMBIN TIME 10.7 SECONDS (9.7-12.0)
[2024-05-26 16:14] LABS: PTT,PARTIAL THROMBOPLSTIN TIME 24.4 SECONDS (21.7-31.4)
[2024-05-26 16:25] LABS: BASE EXCESS ARTERIAL 3.9 (-2-2.0); BICARBONATE,ARTERIAL 31.2 meq/L (22.0-26.0); O2 SATURATION ARTERIAL 95.5 % (96.0-97.0); PCO2 ARTERIAL 72.5 mmHg (35.0-45.0)
[2024-05-26] MEDS: cefTRIAXone 2 GM in Sodium Chloride 0.9% 100 ML IV SCH (16:30)
[2024-05-26] MEDS: Metoprolol Succinate 25 MG Tab.ER PO SCH (20:25)
[2024-05-26] MEDS: LORazepam 2 MG/ML SDV ONE (21:23)
[2024-05-26] MEDS: LORazepam 2 MG/ML SDV IVPUSH ONE (21:23)
[2024-05-26] MEDS: Albuterol/Ipratropium 3.0-0.5 MG/3 ML Neb Soln NEB PRN (21:47)
[2024-05-27 04:26] LABS: BASOPHILS ABSOLUTE AUTO 0.1 K/mm3 (0.0-0.2); BASOPHILS PERCENT AUTO 0.6 % (0.0-1.0); EOSINOPHILS ABSOLUTE AUTO 0.4 K/mm3 (0.0-0.4); EOSINOPHILS PERCENT AUTO 3.7 % (0.0-6.0); HEMATOCRIT 27.5 % (37.0-47.0); HEMOGLOBIN 8.1 gm/dl (12.0-16.0); IMMATURE GRAN ABSOLUTE AUTO 0.05 K/mm3 (0.00-0.05); IMMATURE GRAN PERCENT AUTO 0.4 % (0.0-0.4); LYMPHOCYTES ABSOLUTE AUTO 0.8 K/mm3 (1.0-4.8); LYMPHOCYTES PERCENT AUTO 6.8 % (24.0-44.0); MEAN CORPUSCULAR HEMOGLOBIN 28.5 pg (28.0-32.0); MEAN CORPUSCULAR HGB CONC 29.5 g/dl (32.0-36.0); MEAN CORPUSCULAR VOLUME 96.8 fl (83.0-99.0); MEAN PLATELET VOLUME 9.6 fl (9.4-12.3); MONOCYTES ABSOLUTE AUTO 0.8 K/mm3 (0.0-0.8); MONOCYTES PERCENT AUTO 7.1 % (0.0-8.0); NEUTROPHILS ABSOLUTE AUTO 9.6 K/mm3 (1.8-7.7); NEUTROPHILS PERCENT AUTO 81.4 % (41.0-71.0); PLATELET COUNT,PLT 207 K/mm3 (150-400); RED BLOOD CELL COUNT 2.84 M/mm3 (4.10-5.30); WHITE BLOOD CELL COUNT,WBC 11.75 K/mm3 (3.9-11.3)
[2024-05-27 04:58] LABS: A/G RATIO 0.7 (1-2); ALBUMIN 2.9 g/dl (3.4-5.0); ANION GAP 11.8 (5-15); BILIRUBIN TOTAL 0.4 mg/dL (0.2-1.0); BUN/CREATININE RATIO 12.2 (14-18); C-REACTIVE PROTEIN 9.7 mg/dL (<0.30); CALCIUM 9.5 mg/dL (8.5-10.1); CREATININE 4.1 mg/dL (0.55-1.02); EST CRCL DRUG DOSING (CG) 10.65 mL/min; POTASSIUM,K 4.8 mEq/L (3.5-5.1); PROTEIN TOTAL,TP 6.8 g/dl (6.4-8.2)
[2024-05-27] MEDS: Levothyroxine 100 MCG Tab PO SCH (08:35)
[2024-05-27] MEDS: Pantoprazole 40 MG Tab.CR PO SCH (08:35)
[2024-05-27] MEDS: Bumetanide 1 MG/4 ML MDV IVPUSH ONE ×3 (08:36→15:59)
[2024-05-27] MEDS: LORazepam 2 MG/ML SDV IVPUSH PRN (08:54)
[2024-05-27 09:59] LABS: BASE EXCESS ARTERIAL 3.8 (-2-2.0); BICARBONATE,ARTERIAL 30.4 meq/L (22.0-26.0); O2 SATURATION ARTERIAL 88.6 % (96.0-97.0); PCO2 ARTERIAL 63.5 mmHg (35.0-45.0)
[2024-05-27] MEDS: Sodium Chloride 3% Inhalation Soln 4 ML Neb NEB SCH (13:58)
[2024-05-28] MEDS ORDERED: Sodium Chloride 3% Inhalation Soln 4 ML Neb NEB PRN (02:45)
[2024-05-28] MEDS: Heparin Sodium 5,000 Units/ML Vial IVPUSH ONE ×2 (03:19→15:25)
[2024-05-28 07:17] LABS: BASOPHILS ABSOLUTE AUTO 0.1 K/mm3 (0.0-0.2); BASOPHILS PERCENT AUTO 0.7 % (0.0-1.0); EOSINOPHILS ABSOLUTE AUTO 0.8 K/mm3 (0.0-0.4); EOSINOPHILS PERCENT AUTO 8.5 % (0.0-6.0); HEMATOCRIT 23.9 % (37.0-47.0); IMMATURE GRAN ABSOLUTE AUTO 0.03 K/mm3 (0.00-0.05); IMMATURE GRAN PERCENT AUTO 0.3 % (0.0-0.4); LYMPHOCYTES ABSOLUTE AUTO 1.2 K/mm3 (1.0-4.8); LYMPHOCYTES PERCENT AUTO 13.6 % (24.0-44.0); MEAN CORPUSCULAR HEMOGLOBIN 28.1 pg (28.0-32.0); MEAN CORPUSCULAR HGB CONC 29.7 g/dl (32.0-36.0); MEAN CORPUSCULAR VOLUME 94.5 fl (83.0-99.0); MEAN PLATELET VOLUME 9.5 fl (9.4-12.3); MONOCYTES ABSOLUTE AUTO 0.8 K/mm3 (0.0-0.8); MONOCYTES PERCENT AUTO 8.6 % (0.0-8.0); NEUTROPHILS ABSOLUTE AUTO 6.1 K/mm3 (1.8-7.7); NEUTROPHILS PERCENT AUTO 68.3 % (41.0-71.0); PLATELET COUNT,PLT 202 K/mm3 (150-400); RED BLOOD CELL COUNT 2.53 M/mm3 (4.10-5.30); WHITE BLOOD CELL COUNT,WBC 8.85 K/mm3 (3.9-11.3)
[2024-05-28 07:21] LABS: HEMOGLOBIN 7.1 gm/dl (12.0-16.0)
[2024-05-28 07:34] LABS: A/G RATIO 0.7 (1-2); ALBUMIN 2.5 g/dl (3.4-5.0); ANION GAP 13.3 (5-15); BILIRUBIN TOTAL 0.4 mg/dL (0.2-1.0); C-REACTIVE PROTEIN 12.02 mg/dL (<0.30); CALCIUM 9.2 mg/dL (8.5-10.1); EST CRCL DRUG DOSING (CG) 10.92 mL/min; MAGNESIUM 2.8 mg/dL (1.8-2.4); POTASSIUM,K 4.3 mEq/L (3.5-5.1); PROTEIN TOTAL,TP 5.9 g/dl (6.4-8.2)
[2024-05-28] MEDS: Diltiazem 120 MG Cap.CD PO SCH (08:00)
[2024-05-28] MEDS ORDERED: hydrALAZINE 20 MG/ML SDV IVPUSH PRN (08:38)
[2024-05-28] MEDS ORDERED: Labetalol 100 MG/20 ML MDV IVPUSH PRN (08:38)
[2024-05-28] MEDS: Bumetanide 1 MG/4 ML MDV IVPUSH ONE ×2 (09:20→14:07)
[2024-05-28] MEDS: Empagliflozin 10 MG Tab PO SCH (09:20)
[2024-05-28 14:25] LABS: HEMATOCRIT 26.5 % (37.0-47.0); HEMOGLOBIN 7.8 gm/dl (12.0-16.0)
[2024-05-28] MEDS: fentaNYL 25 MCG/HR Transdermal Patch TRDERM SCH (15:26)
[2024-05-28] MEDS: fentaNYL 50 MCG/HR Transdermal Patch TRDERM SCH (15:27)
[2024-05-28] MEDS: fentaNYL 12 MCG/HR Transdermal Patch TRDERM SCH (15:27)
[2024-05-28] MEDS: Heparin Sodium/D5W 250 ML IV SCH (15:28)
[2024-05-28] MEDS: Apixaban 2.5 MG Tab PO SCH (20:12)
[2024-05-29 04:40] LABS: BASOPHILS ABSOLUTE AUTO 0.1 K/mm3 (0.0-0.2); BASOPHILS PERCENT AUTO 0.8 % (0.0-1.0); EOSINOPHILS ABSOLUTE AUTO 0.7 K/mm3 (0.0-0.4); EOSINOPHILS PERCENT AUTO 10.2 % (0.0-6.0); HEMATOCRIT 24.3 % (37.0-47.0); IMMATURE GRAN ABSOLUTE AUTO 0.03 K/mm3 (0.00-0.05); IMMATURE GRAN PERCENT AUTO 0.4 % (0.0-0.4); LYMPHOCYTES ABSOLUTE AUTO 0.8 K/mm3 (1.0-4.8); LYMPHOCYTES PERCENT AUTO 11.6 % (24.0-44.0); MEAN CORPUSCULAR HEMOGLOBIN 27.7 pg (28.0-32.0); MEAN CORPUSCULAR HGB CONC 29.2 g/dl (32.0-36.0); MEAN CORPUSCULAR VOLUME 94.9 fl (83.0-99.0); MONOCYTES ABSOLUTE AUTO 0.8 K/mm3 (0.0-0.8); MONOCYTES PERCENT AUTO 10.5 % (0.0-8.0); NEUTROPHILS ABSOLUTE AUTO 4.8 K/mm3 (1.8-7.7); NEUTROPHILS PERCENT AUTO 66.5 % (41.0-71.0); PLATELET COUNT,PLT 192 K/mm3 (150-400); RED BLOOD CELL COUNT 2.56 M/mm3 (4.10-5.30); WHITE BLOOD CELL COUNT,WBC 7.26 K/mm3 (3.9-11.3)
[2024-05-29 05:12] LABS: A/G RATIO 0.7 (1-2); ALBUMIN 2.4 g/dl (3.4-5.0); ANION GAP 11.1 (5-15); BILIRUBIN TOTAL 0.4 mg/dL (0.2-1.0); C-REACTIVE PROTEIN 11.41 mg/dL (<0.30); CALCIUM 9.1 mg/dL (8.5-10.1); EST CRCL DRUG DOSING (CG) 10.92 mL/min; MAGNESIUM 2.7 mg/dL (1.8-2.4); POTASSIUM,K 4.1 mEq/L (3.5-5.1); PROTEIN TOTAL,TP 5.8 g/dl (6.4-8.2)
[2024-05-29 05:36] LABS: HEMOGLOBIN 7.1 gm/dl (12.0-16.0)
[2024-05-29] MEDS: Metolazone 2.5 MG Tab PO ONE (08:44)
[2024-05-29] MEDS: guaiFENesin 600 MG Tab.ER PO SCH (08:44)
[2024-05-29] MEDS: Bumetanide 1 MG/4 ML MDV IVPUSH ONE ×2 (08:44→16:30)
[2024-05-29] MEDS: Albuterol 0.083% 2.5 MG/3 ML Neb Soln NEB PRN (12:00)
[2024-05-29] MEDS: Sodium Chloride 3% Inhalation Soln 4 ML Neb NEB SCH (12:00)
[2024-05-29 12:33] VITALS: PULSE 64
[2024-05-29 17:58] VITALS: BP 182/58
[2024-05-29] MEDS ORDERED: Acetylcysteine 20% 200 MG/ML 4 ML Nebulizer Soln SDV NEB SCH (21:00)
== END 2024-05-29 17:00 | disposition home or self-care (01) | DRG 291 ==
LOC: JD.ED 02:10 → JD.ICU 12:31
PROVIDERS: ADMIT Student in an Organized Health Care Education/Training Program; ATTEND Student in an Organized Health Care Education/Training Program
PROC: 4A133R1 Monitoring of Arterial Saturation, Peripheral, Percutaneous Approach (ICD-10-PCS; principal; 2024-05-26)
PROC: 5A09357 Assistance with Respiratory Ventilation, Less than 24 Consecutive Hours, Continuous Positive Airway Pressure (ICD-10-PCS; 2024-05-26)
PROC: 0T9B70Z Drainage of Bladder with Drainage Device, Via Natural or Artificial Opening (ICD-10-PCS; 2024-05-26)
DX: G89.4 Chronic pain syndrome (principal); N28.9 Disorder of kidney and ureter, unspecified; I11.0 Hypertensive heart disease with heart failure; I13.0 Hypertensive heart and chronic kidney disease with heart failure and stage 1 through stage 4 chronic kidney disease, or unspecified chronic kidney disease; E66.9 Obesity, unspecified; I50.33 Acute on chronic diastolic (congestive) heart failure; J96.01 Acute respiratory failure with hypoxia; J96.02 Acute respiratory failure with hypercapnia; L97.419 Non-pressure chronic ulcer of right heel and midfoot with unspecified severity; Z79.890 Hormone replacement therapy; Z68.41 Body mass index [BMI] 40.0-44.9, adult; N18.4 Chronic kidney disease, stage 4 (severe); I82.403 Acute embolism and thrombosis of unspecified deep veins of lower extremity, bilateral; N30.00 Acute cystitis without hematuria; Z66 Do not resuscitate; H54.7 Unspecified visual loss; E78.00 Pure hypercholesterolemia, unspecified; G47.30 Sleep apnea, unspecified; M19.90 Unspecified osteoarthritis, unspecified site; E03.9 Hypothyroidism, unspecified; G62.9 Polyneuropathy, unspecified; E66.01 Morbid (severe) obesity due to excess calories; K64.9 Unspecified hemorrhoids; M54.9 Dorsalgia, unspecified; G89.29 Other chronic pain; D63.1 Anemia in chronic kidney disease; R33.9 Retention of urine, unspecified; T17.998A Other foreign object in respiratory tract, part unspecified causing other injury, initial encounter; Z79.899 Other long term (current) drug therapy; Z79.52 Long term (current) use of systemic steroids; Z79.84 Long term (current) use of oral hypoglycemic drugs; Z79.51 Long term (current) use of inhaled steroids; Z86.718 Personal history of other venous thrombosis and embolism; Z98.49 Cataract extraction status, unspecified eye; Z98.890 Other specified postprocedural states; Z90.49 Acquired absence of other specified parts of digestive tract; Z87.891 Personal history of nicotine dependence
CPT/HCPCS: 0241U; 36415; 36600; 71045; 71250; 80048; 80053; 81001; 82803; 83036; 83605; 83735; 83880; 84443; 84484; 85014; 85018; 85025; 85379; 85610; 85730; 86140; 86850; 86900; 86901; 87040; 87086; 93005; 93306; 93970; 94640; 94660; 94762; 51702; 93010; 96374; 96376; 99223; 99233; 99239; 99285; 99285-25; A9270-GY; J0696; J1644; J1940; J2060; J2305; J3490; J7620-GY

== ENCOUNTER 2024-11-03 09:33 | Inpatient (IN) | payer MEDICARE, MEDICAID ==
[2024-11-03 10:19] LABS: BASOPHILS PERCENT AUTO 0.5 % (0.0-1.0); EOSINOPHILS ABSOLUTE AUTO 0.6 K/mm3 (0.0-0.4); EOSINOPHILS PERCENT AUTO 8.3 % (0.0-6.0); HEMATOCRIT 29.1 % (37.0-47.0); IMMATURE GRAN ABSOLUTE AUTO 0.01 K/mm3 (0.00-0.05); IMMATURE GRAN PERCENT AUTO 0.1 % (0.0-0.4); LYMPHOCYTES PERCENT AUTO 40.6 % (24.0-44.0); MEAN CORPUSCULAR HEMOGLOBIN 30.1 pg (28.0-32.0); MEAN CORPUSCULAR HGB CONC 30.9 g/dl (32.0-36.0); MEAN CORPUSCULAR VOLUME 97.3 fl (83.0-99.0); MEAN PLATELET VOLUME 8.8 fl (9.4-12.3); MONOCYTES ABSOLUTE AUTO 0.4 K/mm3 (0.0-0.8); NEUTROPHILS ABSOLUTE AUTO 3.3 K/mm3 (1.8-7.7); NEUTROPHILS PERCENT AUTO 44.5 % (41.0-71.0); PLATELET COUNT,PLT 148 K/mm3 (150-400); RED BLOOD CELL COUNT 2.99 M/mm3 (4.10-5.30); WHITE BLOOD CELL COUNT,WBC 7.37 K/mm3 (3.9-11.3)
[2024-11-03] MEDS: Iopamidol 755 Mg/ML 100 ML Bottle IVPUSH ONE (10:20)
[2024-11-03] MEDS: Sodium Chloride 0.9% 100 ML IV SCH (10:20)
[2024-11-03] MEDS: Sodium Chloride 0.9% 10 ML Syringe FLUSH PRN (10:21)
[2024-11-03 10:37] LABS: INR 0.95; PROTHROMBIN TIME 10.1 SECONDS (9.7-12.0)
[2024-11-03 10:38] LABS: PTT,PARTIAL THROMBOPLSTIN TIME 26.5 SECONDS (21.7-31.4)
[2024-11-03 10:44] LABS: A/G RATIO 0.9 (1-2); ALANINE AMINOTRANSFERASE,ALT 12 U/L (14-59); ALBUMIN 3.1 g/dl (3.4-5.0); ALKALINE PHOSPHATASE 67 U/L (46-116); ANION GAP 10.5 (5-15); ASPARTATE AMNIOTRANSFERASE,AST 12 U/L (15-37); BILIRUBIN TOTAL 0.5 mg/dL (0.2-1.0); BLOOD UREA NITROGEN,BUN 46 mg/dL (7-18); BUN/CREATININE RATIO 11.2 (14-18); CALCIUM 10.1 mg/dL (8.5-10.1); CARBON DIOXIDE,CO2 30 mEq/L (21-32); CHLORIDE,CL 104 mEq/L (98-107); CREATININE 4.1 mg/dL (0.55-1.02); ESTIMATED GFR 10 mL/min (>60); GLUCOSE RANDOM 106 mg/dL (70-99); POTASSIUM,K 3.5 mEq/L (3.5-5.1); PROTEIN TOTAL,TP 6.7 g/dl (6.4-8.2); SODIUM,NA 141 mEq/L (136-145)
[2024-11-03 10:49] LABS: TROPONIN I HIGH SENSITIVITY 96 pg/mL (<=51)
[2024-11-03] MEDS: Naloxone 2 MG/2 ML Syringe IVPUSH ONE (11:34)
[2024-11-03] MEDS ORDERED: Acetaminophen 650 MG Supp RECTAL PRN (13:57)
[2024-11-03] MEDS ORDERED: Naloxone 0.4 MG/ML SDV IVPUSH PRN (14:05)
[2024-11-03 14:35] LABS: APPEARANCE,URINE CLEAR (Clear); BILIRUBIN,URINE NEGATIVE (Negative); COLOR,URINE YELLOW (Yellow); GLUCOSE,URINE TRACE (Negative); KETONES,URINE NEGATIVE (Negative); LEUKOCYTE ESTERASE,URINE TRACE (Negative); NITRITE,URINE NEGATIVE (Negative); OCCULT BLOOD,URINE TRACE-LYSED (Negative); PH,URINE 7.5 (5.0-8.0); PROTEIN,URINE 1+ (Negative); UROBILINOGEN,URINE 0.2 (0.2-1.0)
[2024-11-03 14:50] LABS: BACTERIA,URINE FEW /hpf (FEW); SQUAMOUS EPITHELIAL CELLS,UR 0-5 /hpf (0-5); WBC,URINE 0-5 /hpf (0-5)
[2024-11-03 14:51] LABS: MUCUS,URINE FEW /hpf (FEW)
[2024-11-03] MEDS ORDERED: Metoprolol Tartrate 5 MG/5 ML SDV IVPUSH PRN (15:04)
[2024-11-03] MEDS: Sodium Chloride 0.9% 10 ML Syringe FLUSH ONE (15:08)
[2024-11-03] MEDS ORDERED: hydrALAZINE 20 MG/ML SDV IVPUSH PRN (15:30)
[2024-11-03] MEDS ORDERED: Labetalol 100 MG/20 ML MDV IVPUSH PRN (15:30)
[2024-11-03 15:34] LABS: BICARBONATE,ARTERIAL 33 meq/L (22.0-26.0); O2 SATURATION ARTERIAL 99.5 % (96.0-97.0)
[2024-11-03 15:35] LABS: BASE EXCESS ARTERIAL 7.3 (-2-2.0)
[2024-11-03] MEDS: D5 1/2 NS w/ 20 mEq/L KCl 1,000 ML IV SCH (16:03)
[2024-11-03] MEDS: Aspirin 81 MG Tab.Chew PO ONE (16:43)
[2024-11-03] MEDS: Heparin Sodium 5,000 Units/ML Vial IVPUSH ONE (17:00)
[2024-11-03] MEDS: Heparin Sodium/D5W 250 ML IV SCH (17:01)
[2024-11-04] MEDS: Heparin Sodium 5,000 Units/ML Vial IVPUSH ONE ×2 (00:41→14:01)
[2024-11-04 06:07] LABS: BASOPHILS ABSOLUTE AUTO 0.1 K/mm3 (0.0-0.2); BASOPHILS PERCENT AUTO 0.8 % (0.0-1.0); EOSINOPHILS ABSOLUTE AUTO 0.8 K/mm3 (0.0-0.4); EOSINOPHILS PERCENT AUTO 10.2 % (0.0-6.0); HEMATOCRIT 30.5 % (37.0-47.0); HEMOGLOBIN 9.2 gm/dl (12.0-16.0); IMMATURE GRAN ABSOLUTE AUTO 0.03 K/mm3 (0.00-0.05); IMMATURE GRAN PERCENT AUTO 0.4 % (0.0-0.4); LYMPHOCYTES ABSOLUTE AUTO 1.9 K/mm3 (1.0-4.8); LYMPHOCYTES PERCENT AUTO 25.9 % (24.0-44.0); MEAN CORPUSCULAR HEMOGLOBIN 29.4 pg (28.0-32.0); MEAN CORPUSCULAR HGB CONC 30.2 g/dl (32.0-36.0); MEAN CORPUSCULAR VOLUME 97.4 fl (83.0-99.0); MEAN PLATELET VOLUME 8.9 fl (9.4-12.3); MONOCYTES ABSOLUTE AUTO 0.5 K/mm3 (0.0-0.8); MONOCYTES PERCENT AUTO 7.2 % (0.0-8.0); NEUTROPHILS ABSOLUTE AUTO 4.1 K/mm3 (1.8-7.7); NEUTROPHILS PERCENT AUTO 55.5 % (41.0-71.0); PLATELET COUNT,PLT 165 K/mm3 (150-400); RED BLOOD CELL COUNT 3.13 M/mm3 (4.10-5.30); WHITE BLOOD CELL COUNT,WBC 7.37 K/mm3 (3.9-11.3)
[2024-11-04 06:36] LABS: A/G RATIO 0.8 (1-2); ALBUMIN 2.8 g/dl (3.4-5.0); BILIRUBIN TOTAL 0.4 mg/dL (0.2-1.0); BUN/CREATININE RATIO 10.3 (14-18); C-REACTIVE PROTEIN 4.13 mg/dL (<0.30); CALCIUM 9.7 mg/dL (8.5-10.1); EST CRCL DRUG DOSING (CG) 10.55 mL/min; MAGNESIUM 2.8 mg/dL (1.8-2.4); PHOSPHORUS 4.4 mg/dL (2.6-4.7); PROTEIN TOTAL,TP 6.3 g/dl (6.4-8.2)
[2024-11-04 06:46] LABS: ANION GAP 12.9 (5-15); POTASSIUM,K 3.9 mEq/L (3.5-5.1)
[2024-11-04] MEDS ORDERED: Acetaminophen 325 MG Tab PO PRN (08:18)
[2024-11-04] MEDS ORDERED: Bisacodyl 5 MG Tab PO PRN (08:18)
[2024-11-04] MEDS ORDERED: Acetaminophen/oxyCODONE 325-5 MG Tab PO PRN (08:18)
[2024-11-04] MEDS: Menthol 10%/Methyl Salicylate 30% 85 GM Tube TOP SCH (08:48)
[2024-11-04] MEDS: Polyethylene Glycol 3350 Powder 17 GM Packet PO SCH (08:49)
[2024-11-04] MEDS: Isosorbide Mononitrate 30 MG Tab.ER PO SCH (08:49)
[2024-11-04] MEDS: Lidocaine 4% Patch TOP SCH (08:49)
[2024-11-04] MEDS: Cetirizine 10 MG Tab PO SCH (08:52)
[2024-11-04] MEDS: Docusate Sodium 100 MG Cap PO SCH (08:52)
[2024-11-04] MEDS: Gabapentin 300 MG Cap PO SCH (08:52)
[2024-11-04] MEDS: Pantoprazole 40 MG Tab.CR PO SCH (08:52)
[2024-11-04] MEDS: guaiFENesin 600 MG Tab.ER PO SCH (08:52)
[2024-11-04] MEDS: Empagliflozin 10 MG Tab PO SCH (08:52)
[2024-11-04] MEDS: Diltiazem 240 MG Cap.ER PO SCH (08:52)
[2024-11-04] MEDS: Aspirin 81 MG Tab.Chew PO SCH (08:52)
[2024-11-04] MEDS: Sertraline 50 MG Tab PO SCH (08:52)
[2024-11-04] MEDS: Bumetanide 1 MG Tab PO SCH (08:52)
[2024-11-04] MEDS: Magnesium Oxide 400 MG Tab PO SCH (08:52)
[2024-11-04] MEDS: Budesonide 0.5 MG/2 ML Neb Susp NEB SCH (09:47)
[2024-11-04] MEDS: Sennosides/Docusate Sodium 50-8.6 MG Tab PO SCH (18:25)
[2024-11-04] MEDS: Metoprolol Succinate 25 MG Tab.ER PO SCH (20:26)
[2024-11-05 02:19] LABS: BASOPHILS ABSOLUTE AUTO 0.1 K/mm3 (0.0-0.2); BASOPHILS PERCENT AUTO 0.7 % (0.0-1.0); EOSINOPHILS ABSOLUTE AUTO 0.9 K/mm3 (0.0-0.4); EOSINOPHILS PERCENT AUTO 12.5 % (0.0-6.0); HEMATOCRIT 28.9 % (37.0-47.0); HEMOGLOBIN 8.8 gm/dl (12.0-16.0); IMMATURE GRAN ABSOLUTE AUTO 0.02 K/mm3 (0.00-0.05); IMMATURE GRAN PERCENT AUTO 0.3 % (0.0-0.4); LYMPHOCYTES ABSOLUTE AUTO 2.4 K/mm3 (1.0-4.8); LYMPHOCYTES PERCENT AUTO 32.1 % (24.0-44.0); MEAN CORPUSCULAR HEMOGLOBIN 29.8 pg (28.0-32.0); MEAN CORPUSCULAR HGB CONC 30.4 g/dl (32.0-36.0); MONOCYTES ABSOLUTE AUTO 0.6 K/mm3 (0.0-0.8); MONOCYTES PERCENT AUTO 7.6 % (0.0-8.0); NEUTROPHILS ABSOLUTE AUTO 3.5 K/mm3 (1.8-7.7); NEUTROPHILS PERCENT AUTO 46.8 % (41.0-71.0); PLATELET COUNT,PLT 163 K/mm3 (150-400); RED BLOOD CELL COUNT 2.95 M/mm3 (4.10-5.30); WHITE BLOOD CELL COUNT,WBC 7.36 K/mm3 (3.9-11.3)
[2024-11-05 02:42] LABS: A/G RATIO 0.9 (1-2); ALBUMIN 2.9 g/dl (3.4-5.0); ANION GAP 9.1 (5-15); BILIRUBIN TOTAL 0.4 mg/dL (0.2-1.0); BUN/CREATININE RATIO 11.2 (14-18); C-REACTIVE PROTEIN 4.05 mg/dL (<0.30); CALCIUM 9.9 mg/dL (8.5-10.1); CREATININE 4.1 mg/dL (0.55-1.02); EST CRCL DRUG DOSING (CG) 10.29 mL/min; MAGNESIUM 2.9 mg/dL (1.8-2.4); POTASSIUM,K 4.1 mEq/L (3.5-5.1); PROTEIN TOTAL,TP 6.2 g/dl (6.4-8.2)
[2024-11-06 04:56] LABS: BASOPHILS ABSOLUTE AUTO 0.1 K/mm3 (0.0-0.2); BASOPHILS PERCENT AUTO 0.9 % (0.0-1.0); EOSINOPHILS ABSOLUTE AUTO 0.9 K/mm3 (0.0-0.4); EOSINOPHILS PERCENT AUTO 12.3 % (0.0-6.0); HEMATOCRIT 28.2 % (37.0-47.0); HEMOGLOBIN 8.3 gm/dl (12.0-16.0); IMMATURE GRAN ABSOLUTE AUTO 0.02 K/mm3 (0.00-0.05); IMMATURE GRAN PERCENT AUTO 0.3 % (0.0-0.4); LYMPHOCYTES PERCENT AUTO 29.6 % (24.0-44.0); MEAN CORPUSCULAR HEMOGLOBIN 29.4 pg (28.0-32.0); MEAN CORPUSCULAR HGB CONC 29.4 g/dl (32.0-36.0); MEAN PLATELET VOLUME 9.1 fl (9.4-12.3); MONOCYTES ABSOLUTE AUTO 0.6 K/mm3 (0.0-0.8); NEUTROPHILS ABSOLUTE AUTO 3.3 K/mm3 (1.8-7.7); NEUTROPHILS PERCENT AUTO 47.9 % (41.0-71.0); PLATELET COUNT,PLT 164 K/mm3 (150-400); RED BLOOD CELL COUNT 2.82 M/mm3 (4.10-5.30); WHITE BLOOD CELL COUNT,WBC 6.89 K/mm3 (3.9-11.3)
[2024-11-06 05:31] LABS: A/G RATIO 0.8 (1-2); ALBUMIN 2.8 g/dl (3.4-5.0); ANION GAP 12.2 (5-15); BILIRUBIN TOTAL 0.4 mg/dL (0.2-1.0); C-REACTIVE PROTEIN 2.48 mg/dL (<0.30); CALCIUM 9.9 mg/dL (8.5-10.1); CREATININE 4.1 mg/dL (0.55-1.02); EST CRCL DRUG DOSING (CG) 10.29 mL/min; MAGNESIUM 2.8 mg/dL (1.8-2.4); POTASSIUM,K 4.2 mEq/L (3.5-5.1); PROTEIN TOTAL,TP 6.2 g/dl (6.4-8.2)
[2024-11-06 09:13] VITALS: BP 129/82; PULSE 62
== END 2024-11-06 09:36 | DRG 917 ==
LOC: JD.ED 09:33 → JD.MS 12:10
PROVIDERS: ADMIT Student in an Organized Health Care Education/Training Program; ATTEND Student in an Organized Health Care Education/Training Program
DX: T40.411A Poisoning by fentanyl or fentanyl analogs, accidental (unintentional), initial encounter (principal); I12.0 Hypertensive chronic kidney disease with stage 5 chronic kidney disease or end stage renal disease; N18.5 Chronic kidney disease, stage 5; I21.4 Non-ST elevation (NSTEMI) myocardial infarction; I50.33 Acute on chronic diastolic (congestive) heart failure; R79.89 Other specified abnormal findings of blood chemistry; E78.00 Pure hypercholesterolemia, unspecified; I13.0 Hypertensive heart and chronic kidney disease with heart failure and stage 1 through stage 4 chronic kidney disease, or unspecified chronic kidney disease; Z79.899 Other long term (current) drug therapy; N18.4 Chronic kidney disease, stage 4 (severe); J96.11 Chronic respiratory failure with hypoxia; Z66 Do not resuscitate; D63.1 Anemia in chronic kidney disease; E78.5 Hyperlipidemia, unspecified; F41.9 Anxiety disorder, unspecified; E03.9 Hypothyroidism, unspecified; G62.9 Polyneuropathy, unspecified; G47.33 Obstructive sleep apnea (adult) (pediatric); R40.4 Transient alteration of awareness; M14.679 Charcot's joint, unspecified ankle and foot; G89.4 Chronic pain syndrome; J44.9 Chronic obstructive pulmonary disease, unspecified; E88.09 Other disorders of plasma-protein metabolism, not elsewhere classified; D49.0 Neoplasm of unspecified behavior of digestive system; D32.9 Benign neoplasm of meninges, unspecified; R59.0 Localized enlarged lymph nodes; I48.91 Unspecified atrial fibrillation; Z86.711 Personal history of pulmonary embolism; Z79.890 Hormone replacement therapy; Z79.01 Long term (current) use of anticoagulants; Z99.81 Dependence on supplemental oxygen; Y92.89 Other specified places as the place of occurrence of the external cause; Z86.718 Personal history of other venous thrombosis and embolism
CPT/HCPCS: 36415; 36600; 70450; 70450-26; 70496; 70496-26; 70498; 70498-26; 80053; 81001; 82803; 82947; 83735; 83880; 84100; 84443; 84484; 85025; 85610; 85730; 86140; 87086; 93005; 93010; 94640; 94760; 94761; 96361; 96374; 99285; 99285-25; A9270-GY; J1644; J2310; J3480; J3490; Q9967